=== PATIENT | female | born 1955 | race Caucasian/White ===

== ENCOUNTER 2024-07-22 09:34 | Emergency (ER) | payer MEDICARE, SELFPAY ==
[2024-07-22 09:35] VITALS: BMI 41.5
[2024-07-22 10:38] VITALS: BP 138/86; PULSE 77; RESP 20; TEMP 36.6; O2SAT 93; BMI 41.5
--- NOTE | 2024-07-22 10:51 | EKG_ITS ---
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1955 Requested By: Ilana Montgomery ([facility]) Michael Order Number: [id number] Reading MD: Ilana Montgomery ([facility]) Michael Measurements Intervals [place] Rate: 79 P: 54 [place]: 175 QRS: 47 QRSD: 84 T: 36 QT: 390 QTc: 450 Interpretive Statements SINUS RHYTHM WITH SINUS ARRHYTHMIA LOW QRS VOLTAGE IN PRECORDIAL LEADS [QRS DEFLECTION < 1.0 mV IN CHEST LEADS] MINIMAL ST DEPRESSION [0.025+ mV ST DEPRESSION] Compared to ECG 09/07/2021 07:23:46 Low QRS voltage now present ST (T wave) deviation now present Incomplete right bundle-branch block no longer present T-wave abnormality no longer present Possible ischemia no longer present /store/S0/[id number].pdf
--- NOTE | 2024-07-22 10:51 | XR_ITS ---
Examination: AP chest single view TECHNIQUE: AP portable upright chest single view Exam date and time: July 22, 2024 1132 hours Comparison October 24, 2022 INDICATIONS: Shortness of breath beginning 5 days ago. FINDINGS: No significant cardiac enlargement Moderate vascular congestion Prominent accentuation interstitial markings at the lung bases Prominent osteopenia IMPRESSION: Bibasilar bronchitis versus early bronchopneumonia, clinical correlation advised
--- NOTE | 2024-07-22 10:51 | PD.EDRME ---
Rapid Medical Screening Exam RME Arrival date/time: 07/22/24 09:34 This is a 69-year-old female history of CHF, COPD presents to the emergency department with complaints of chest pain, shortness of breath and BLE. I have greeted and performed a focused initial assessment of this patient. Initial appropriate labs ordered at this time. A comprehensive ED assessment and evaluation of the patient and analysis of all test and completion of medical decision making process will be conducted by additional ED provider. Chief Complaint: Shortness of Breath/Dyspnea Time Seen by Provider: 07/22/24 10:12 Vital signs: Vital Signs Temperature 97.9 F 07/22/24 10:38 Pulse Rate 77 07/22/24 10:38 Respiratory Rate 20 07/22/24 10:38 Blood Pressure 138/86 H 07/22/24 10:38 Pulse Oximetry (%) 93 L 07/22/24 10:38 Oxygen Delivery Method Nasal Cannula 07/22/24 10:38 Oxygen Flow Rate 3 07/22/24 10:38
[2024-07-22 11:33] LABS: Basophils # (Auto) 0.1 Thou/mm3 (0.0-0.2); Basophils % (Auto) 1 % (0-2.5); Eosinophils # (Auto) 0.5 Thou/mm3 (0.0-0.5); Eosinophils % (Auto) 8 % (0-10); Hematocrit 38.7 % (36.0-46.0); Hemoglobin 12.6 g/dL (12.0-16.0); Immature Granulocytes % (Auto) 1 % (0-0); Immature Granulocytes Auto 0.04 Thou/mm3 (0.00-0.00); Lymphocytes # (Auto) 1.3 Thou/mm3 (1.0-4.8); Lymphocytes % (Auto) 20 % (10-50); Mean Corpuscular HGB Conc 32.6 g/dl (31.0-37.0); Mean Corpuscular Hemoglobin 31.5 pg (25.0-35.0); Mean Corpuscular Volume 97 fL (80-100); Monocytes # (Auto) 0.4 Thou/mm3 (0.0-0.8); Monocytes % (Auto) 7 % (0-12); Neutrophils # (Auto) 4.2 Thou/mm3 (1.8-7.7); Neutrophils % (Auto) 64 % (37-80); Nucleated Red Blood Cell % 0 /100 WBC (0); Platelet Count 244 Thou/mm3 (140-440); RDW Standard Deviation 48.3 fL (36.4-46.3); White Blood Count 6.6 Thou/mm3 (3.6-11.0)
[2024-07-22 11:49] LABS: B-Type Natriuretic Peptide 53 pg/mL (0-100); INR 0.9 (0.9-1.3); Partial Thromboplastin Time 21.1 Seconds (22.0-36.0); Prothrombin Time 10.4 Seconds (9.0-12.2)
[2024-07-22 11:50] LABS: Alanine Aminotransferase 17 U/L (10-49); Albumin, Serum 4.3 gm/dL (3.4-4.8); Albumin/Globulin Ratio 1.7 (1.2-2.2); Alkaline Phosphatase 102 U/L (46-116); Anion Gap 7 (7-16); Aspartate Amino Transferase 17 U/L (0-34); BUN/Creatinine Ratio 10 Ratio (12-20); Bilirubin,Total 0.3 mg/dL (0.3-1.2); Blood Urea Nitrogen 8 mg/dL (9-23); Carbon Dioxide 32.2 mMol/L (20.0-31.0); Chloride 98 mMol/L (98-107); Creatinine (Component) 0.8 mg/dL (0.6-1.3); Estimated Creatinine Clearance 70.9 mL/min (>60); Globulin 2.6 gm/dL (2.3-3.5); Glucose 118 mg/dL (74-106); Lipase 41 U/L (12-53); Magnesium 2.2 mg/dL (1.6-2.6); Osmolality,Calculated 273 (275-295); Potassium 4.2 mMol/L (3.4-5.1); Sodium 137 mMol/L (136-145); Total Protein 6.9 gm/dL (5.7-8.2); Troponin I < 0.020 ng/mL (0.0-0.045); eGFR > 60 See Note
[2024-07-22] MEDS: MethylPREDNISolone SOD SUCC 62.5 MG/ML 2ML VIAL 125 MG IVP (12:46)
[2024-07-22] MEDS: ALBUTEROL/IPRATROPIUM (Duoneb) RT SOL 3 ML NEBU INH (12:58)
[2024-07-22 12:59] VITALS: PULSE 78; RESP 20; O2SAT 97
--- NOTE | 2024-07-22 15:36 | PD.EDSOB ---
ED SOB =RME/HPI General Chief Complaint: Shortness of Breath/Dyspnea Stated Complaint: SHORTNESS OF BREATH Time Seen by Provider: 07/22/24 10:12 Arrival date/time: 07/22/24 09:34 RME / HPI RME / HPI Narrative: 69-year-old female patient with significant history of congestive heart failure, COPD, came in for evaluation regarding shortness of breath and chest pain on coughing. Severity of symptoms for several weeks getting worse for the last few days. Denies any fever denies any other complaints patient be using her COPD medications oxygen and breathing treatment with mild relief. Denies any other complaints. Related Data Home Medications ?Medication ?Instructions ?Recorded ?Confirmed furosemide 20 mg tablet 20 mg PO QDAY 09/04/21 09/24/21 levothyroxine 50 mcg tablet 25 mcg PO QDAY 09/04/21 09/24/21 potassium chloride 20 mEq 20 meq PO BID 09/04/21 09/24/21 tablet,extended release tiotropium 2.5 mcg-olodaterol 2.5 2 puff inhalation QDAY 09/24/21 09/24/21 mcg/actuation mist for inhalation (Stiolto Respimat) Previous Rx's ?Medication ?Instructions ?Recorded azithromycin 250 mg tablet 500 mg (2 x 250 mg) PO QDAY #7 tabs 09/27/21 beclomethasone dipropionate 80 2 inh inhalation BID #10.6 grams 09/27/21 mcg/actuation HFA breath activated aerosol (Qvar RediHaler) docusate sodium 100 mg capsule 100 mg PO BID PRN Constipation #30 09/27/21 (DOK) caps pantoprazole 40 mg tablet,delayed 40 mg PO ACBR #30 tabs 09/27/21 release prednisone 20 mg tablet 40 mg PO QDAY #20 tabs 09/27/21 hydralazine 25 mg tablet 50 mg (2 x 25 mg) PO TID #90 tabs 10/01/21 losartan 50 mg tablet 50 mg PO BID #0 tabs 10/01/21 hydrocodone 5 mg-acetaminophen 325 1 tab PO BID PRN pain #10 tabs 08/20/22 mg tablet ondansetron 4 mg disintegrating 4 mg PO Q8H PRN nausea and 08/20/22 tablet vomiting #10 tabs doxycycline hyclate 100 mg capsule 100 mg PO BID #20 caps 09/29/22 prednisone 50 mg tablet 50 mg PO QDAY #7 tabs 09/29/22 levofloxacin 500 mg tablet 500 mg PO Q24H 7 days #7 tabs 07/22/24 prednisone 50 mg tablet 50 mg PO QDAY #7 tabs 07/22/24 Allergies Allergy/AdvReac Type Severity Reaction Status Date / Time iodine Allergy NAUSEA, Verified 07/22/24 09:38 VOMITTING, CHILLS, DIARRHEA, FEVER Review of Systems Review of Systems Narrative Review of Systems: Review of system reviewed and within normal limits except mentioned in HPI ED Exam Narrative Physical exam: VITAL SIGNS: Reviewed. GENERAL APPEARANCE: Alert and interactive, follows commands, no acute distress, HEAD AND FACE: Non-traumatic. ENT: PERRL, pink conjunctivitis, eyelid no trauma, Mucous membrane moist. NECK: Supple, nontender, no nuchal rigidity. CHEST: No tenderness, no crepitus, no paradoxical movement, no retractions. LUNGS: Clear, well ventilated, symmetric, no rales, no wheezing, no ronchi, no stridor, good breath sounds bilaterally. HEART: Regular rate, regular rhythm, no murmur, no gallops. ABDOMEN: Soft, positive bowel sounds, nondistended, no guarding, nontender, no rebound, no masses, RECTAL: Deferred. GENITAL: Deferred. NEUROLOGICAL: Gross motor function intact sensory function intact, Appropriate for age. MUSCULOSKELETAL: low back nontender, full range of motion. EXTREMITIES: Nontender, full range of motion. SKIN: Color pink, dry, no rash, no lacerations, no abrasions, no contusions. LYMPHATICS: Deferred. 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 STAT Care 07/22/24 10:51 Active Continuous Pulse Oximetry ONCE Care 07/22/24 10:51 Active EKG (ED ONLY) *Do not use* NOW Care 07/22/24 10:51 Completed Insert IV STAT Care 07/22/24 10:51 Active EKG (ED Only) Stat Exams 07/22/24 10:51 Draft XR chest 1V portable Stat Exams 07/22/24 10:51 Completed B-Type Natriuretic Peptide Stat Lab 07/22/24 11:18 Completed CBC Stat Lab 07/22/24 11:18 Completed Comprehensive Metabolic Panel Stat Lab 07/22/24 11:18 Completed Lipase Stat Lab 07/22/24 11:18 Completed Magnesium Stat Lab 07/22/24 11:18 Completed Partial Thromboplastin Time Stat Lab 07/22/24 11:18 Completed Prothrombin Time with INR Stat Lab 07/22/24 11:18 Completed Troponin I Stat Lab 07/22/24 11:18 Completed Albuterol/Ipratr Rt Ginger [Duoneb Rt Ginger] Med 07/22/24 10:50 Discontinued 3 ml INH X1 ONE MethylPREDNISolone.* [SoluMEDROL Inj] Med 07/22/24 10:50 Discontinued 125 mg IVP X1 ONE Vital Signs Vital signs: Vital Signs Temperature 97.9 F 07/22/24 10:38 Pulse Rate 77 07/22/24 10:38 Respiratory Rate 20 07/22/24 10:38 Blood Pressure 138/86 H 07/22/24 10:38 Pulse Oximetry (%) 93 L 07/22/24 10:38 Oxygen Delivery Method Nasal Cannula 07/22/24 10:38 Oxygen Flow Rate 3 07/22/24 10:38 Shortness of Breath / Dyspnea MDM Narrative MDM Narrative:: 69-year-old female patient with significant history of congestive heart failure, COPD, came in for evaluation regarding shortness of breath and chest pain on coughing. Severity of symptoms for several weeks getting worse for the last few days. Denies any fever denies any other complaints patient be using her COPD medications oxygen and breathing treatment with mild relief. Denies any other complaints. Laboratory couple came back unremarkable. There is no leukocytosis noted. CMP unremarkable. EKG showed sinus rhythm, ventricular rate of 79 bpm, no ST segment ovation depression noted. Chest x-ray showed bronchitis versus early bronchopneumonia. Results discussed with the family and patient. Patient appears nontoxic and hemodynamically stable. Patient discharged home and instructed to follow-up with primary care provider in 24 to 48 hours. Instructed to return to the emergency department immediately if worsening of symptoms Patient data External records reviewed:: None Clinical information provided by:: patient and family Social determinants that could affect healthcare access:: none Patient has the following chronic illnesses:: COPD congestive heart failure How is presenting disease/condition affected by chronic disease/condition?: exacerbated by Evaluation data The following diagnostics were reviewed and interpreted by me:: lab results, radiology exam(s) and EKG tracing(s) Lab and/or radiology exams considered but not ordered:: None Interpretation Summary: See results in MDM Medications / Prescriptions Medications or Prescriptions considered but not ordered:: None Medication administrations:: Medication Administration History Discontinued Medications Albuterol/Ipratropium (Albuterol/Ipratropium (Duoneb) Rt Ginger 3 Ml Nebu) 3 ml INH X1 ONE Stop: 07/22/24 10:51 Last Admin: 07/22/24 12:58 Dose: 3 ml Documented By: ALBIN Methylprednisolone Sodium Succinate (Methylprednisolone Sod Succ 62.5 Mg/Ml 2ml Vial) 125 mg IVP X1 ONE Stop: 07/22/24 10:51 Last Admin: 07/22/24 12:46 Dose: 125 mg Documented By: JONATHAN Jones, Gingeru-Medrol Consultations Consultation(s) initiated? (list below): No Diagnosis Shortness of Breath Differential Diagnosis: acute exacerbation of chronic obstructive airways disease, congestive heart failure and community acquired pneumonia Most likely diagnosis given after review of the tests above:: Pneumonia, COPD Admission Indicated Admission indicated?: not indicated Admission Request Was there a request for admission?: No Disposition Plan Disposition Plan: Discharge Discharge Attestation Discharge Attestation: The patient and all family members were given an opportunity to ask questions and understood the discharge instructions. Discharge instructions specifically effects, indications for sooner follow up or return to the emergency department, and the expected course of current diagnosis. Patient condition: Stable Discharge Plan Plan Patient Disposition: HOME (Self Care) Disposition Comment: stable Prescriptions/Referrals Prescriptions/Med Rec: New prednisone 50 mg tablet 50 mg PO QDAY Qty: 7 0RF levofloxacin 500 mg tablet 500 mg PO Q24H 7 Days Qty: 7 0RF No Action levothyroxine 50 mcg Tablet 25 mcg PO QDAY furosemide 20 mg Tablet 20 mg PO QDAY potassium chloride 20 mEq Tablet Extended Release 20 meq PO BID Stiolto Respimat 2.5-2.5 mcg/actuation Mist 2 puff INHALATION QDAY azithromycin 250 mg Tablet 500 mg PO QDAY Qty: 7 0RF prednisone 20 mg Tablet 40 mg PO QDAY Qty: 20 0RF Taper: Prednisone Taper 20 mg DAILY for 2 Days and 0 Hour 10 mg DAILY for 2 Days and 0 Hour 5 mg DAILY for 7 Days and 0 Hour pantoprazole 40 mg Tablet,Delayed Release (Dr/Ec) 40 mg PO ACBR Qty: 30 0RF docusate sodium [DOK] 100 mg Capsule 100 mg PO BID PRN (Reason: Constipation) Qty: 30 0RF Qvar RediHaler 80 mcg/actuation HFA aerosol breath activated 2 inh inhalation BID Qty: 10.6 0RF hydralazine 25 mg Tablet 50 mg PO TID Qty: 90 0RF losartan 50 mg Tablet 50 mg PO BID Qty: 0 0RF hydrocodone-acetaminophen 5-325 mg tablet 1 tab PO BID MDD 10mg PRN (Reason: pain) Qty: 10 0RF ondansetron 4 mg tablet,disintegrating 4 mg PO Q8H PRN (Reason: nausea and vomiting) Qty: 10 0RF doxycycline hyclate 100 mg capsule 100 mg PO BID Qty: 20 0RF prednisone 50 mg tablet 50 mg PO QDAY Qty: 7 0RF Referrals: Ethan Castle MD [Primary Care Provider] - In 1 week Problem List Clinical Impression: Community acquired pneumonia, COPD (chronic obstructive pulmonary disease) Patient/Caregiver Discharge Instructions Discharge Activity: activity as tolerated Education Materials: ED Pneumonia (Adult) Additional Instructions: Thank you for the opportunity for serving you today. You are stable for discharged . You are advised to: Follow-up with your PCP in 1 to 2 days Return to ED for worsening of symptoms Print Language: [place] Island[place] Stand Alone Forms: Miranda Award Info., Patient Portal Info Letter
== END 2024-07-22 16:12 | disposition home or self-care (01) ==
PROVIDERS: Nurse Practitioner Primary Care; Emergency Provider Emergency Medicine; PCP Internal Medicine
DX: J18.9 Pneumonia, unspecified organism (principal); J44.0 Chronic obstructive pulmonary disease with (acute) lower respiratory infection; I50.9 Heart failure, unspecified
CPT/HCPCS: 36415; 71045; 80053; 83690; 83735; 83880; 84484; 85025; 85610; 85730; 93005; 94640; 96374; 99284; A9270; J2919

== ENCOUNTER 2024-08-10 11:51 | Inpatient (IN) | payer MEDICARE, MEDICAID, SELFPAY ==
[2024-08-10 12:31] VITALS: BP 140/84; PULSE 80; RESP 20; TEMP 36.5; O2SAT 97; BMI 41.5
--- NOTE | 2024-08-10 12:42 | XR_ITS ---
Examination: PA lateral chest 2 views Technique: Upright PA lateral chest 2 views Exam date and time: August 10, 2024 1307 hours Comparison July 22, 2024 Indications: Shortness of breath beginning 2 weeks ago. Findings: Mild heart failure Mild enlargement cardiac contour Prominent vascular congestion with early edema at the lung bases Increased AP dimension chest with kyphosis dorsal spine Impression: Mild heart failure
--- NOTE | 2024-08-10 12:42 | EKG_ITS ---
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
--- NOTE | 2024-08-10 12:42 | PD.EDRME ---
Rapid Medical Screening Exam RME Arrival date/time: 08/10/24 11:51 69-year-old female with a history of COPD, CHF, hypertension presents to the emergency room with a chief complaint of shortness of breath, bilateral lower extremity swelling x 2 days I have greeted and performed a focused initial assessment of this patient. A comprehensive ED assessment and evaluation of the patient, analysis of all test results, and completion of the medical decision making process will be conducted by additional ED providers. Chief Complaint: General Adult/Misc Complain Time Seen by Provider: 08/10/24 12:29 Vital signs: Vital Signs Temperature 97.7 F 08/10/24 12:31 Pulse Rate 80 08/10/24 12:31 Respiratory Rate 20 08/10/24 12:31 Blood Pressure 140/84 H 08/10/24 12:31 Pulse Oximetry (%) 97 08/10/24 12:31 Oxygen Delivery Method Nasal Cannula 08/10/24 12:31 Oxygen Flow Rate 3 08/10/24 12:31 Vital signs reviewed by provider: Yes
[2024-08-10 13:15] LABS: Basophils # (Auto) 0.1 Thou/mm3 (0.0-0.2); Basophils % (Auto) 1 % (0-2.5); Eosinophils # (Auto) 0.6 Thou/mm3 (0.0-0.5); Eosinophils % (Auto) 9 % (0-10); Hematocrit 39.1 % (36.0-46.0); Hemoglobin 12.3 g/dL (12.0-16.0); Immature Granulocytes % (Auto) 1 % (0-0); Immature Granulocytes Auto 0.03 Thou/mm3 (0.00-0.00); Lymphocytes # (Auto) 1.2 Thou/mm3 (1.0-4.8); Lymphocytes % (Auto) 19 % (10-50); Mean Corpuscular HGB Conc 31.5 g/dl (31.0-37.0); Mean Corpuscular Hemoglobin 31.9 pg (25.0-35.0); Mean Corpuscular Volume 101 fL (80-100); Monocytes # (Auto) 0.4 Thou/mm3 (0.0-0.8); Monocytes % (Auto) 7 % (0-12); Neutrophils # (Auto) 3.9 Thou/mm3 (1.8-7.7); Neutrophils % (Auto) 63 % (37-80); Nucleated Red Blood Cell % 0 /100 WBC (0); Platelet Count 226 Thou/mm3 (140-440); RDW Standard Deviation 49.9 fL (36.4-46.3); Red Blood Count 3.86 Miln/mm3 (4.00-5.20); White Blood Count 6.2 Thou/mm3 (3.6-11.0)
[2024-08-10 13:41] LABS: INR 0.9 (0.9-1.3); Partial Thromboplastin Time 26.2 Seconds (22.0-36.0); Prothrombin Time 10.3 Seconds (9.0-12.2)
[2024-08-10 13:44] LABS: Anion Gap 7 (7-16); BUN/Creatinine Ratio 10 Ratio (12-20); Blood Urea Nitrogen 9 mg/dL (9-23); Carbon Dioxide 32.5 mMol/L (20.0-31.0); Chloride 102 mMol/L (98-107); Creatinine (Component) 0.9 mg/dL (0.6-1.3); Potassium 4.1 mMol/L (3.4-5.1); Sodium 141 mMol/L (136-145)
[2024-08-10 13:45] LABS: Alanine Aminotransferase 17 U/L (10-49); Albumin, Serum 4.2 gm/dL (3.4-4.8); Albumin/Globulin Ratio 1.8 (1.2-2.2); Alkaline Phosphatase 90 U/L (46-116); Aspartate Amino Transferase 17 U/L (0-34); Bilirubin,Total 0.4 mg/dL (0.3-1.2); Calcium 9.3 mg/dL (8.3-10.6); Calcium (Corrected) 9.3 mg/dL (8.5-10.1); Globulin 2.4 gm/dL (2.3-3.5); Glucose 126 mg/dL (74-106); LDH (Lactate Dehydrogenase) 259 U/L (120-246); Osmolality,Calculated 281 (275-295); Total Protein 6.6 gm/dL (5.7-8.2); Troponin I < 0.020 ng/mL (0.0-0.045); eGFR > 60 See Note
[2024-08-10 13:58] LABS: B-Type Natriuretic Peptide 50 pg/mL (0-100)
--- NOTE | 2024-08-10 19:18 | EDNOTE_ITS ---
ED General RME/HPI General Chief complaint: General Adult/Misc Complain Stated complaint: COPD/CHF, CAME HERE W/ PNA X 2 WKS. GETTING WORSE Time Seen by Provider: 08/10/24 12:29 Source: patient Arrival date/time: 08/10/24 11:51 Mode of arrival: ambulatory Limitations: no limitations RME / HPI RME / HPI narrative: Dr. Thomas?s Main ED Evaluation: 69-year-old female with a past medical history of chronic obstructive pulmonary disease (COPD), congestive heart failure (CHF), and hypertension presents to the emergency department with progressive shortness of breath and bilateral lower extremity swelling for the past two days. The patient reports increasing dyspnea at rest and with exertion, which has worsened compared to her baseline. She denies chest pain, fever, or recent illness. She also notes worsening lower extremity edema, which she has not experienced at this severity before. Related Data Home Medications ?Medication ?Instructions ?Recorded ?Confirmed furosemide 20 mg tablet 20 mg PO QDAY 09/04/2109/24 levothyroxine 50 mcg tablet 25 mcg PO QDAY 09/04/21 potassium chloride 20 mEq 20 meq PO BID 09/04/2109/24 tablet,extended release tiotropium 2.5 mcg-olodaterol 2.5 2 puff inhalation QD AY 09/24/21 09/24/21 mcg/actuation mist for inhalation (Stiolto Respimat) Previous Rx's ?Medication ?Instructions ?Recorded azithromycin 250 mg tablet 500 mg (2 x 250 mg) PO QDAY #7 tabs 09/27/21 beclomethasone dipropionate 80 2 inh inhalation BID #1 0.6 grams 09/27/21 mcg/actuation HFA breath activated aerosol (Qvar RediHaler) docusate sodium 100 mg capsule 100 mg PO BID PRN Const ipation #30 09/27/21 (DOK) caps pantoprazole 40 mg tablet,delayed 40 mg PO ACBR #30 ta bs 09/27/21 release prednisone 20 mg tablet 40 mg PO QDAY #20 tabs 09/27 hydralazine 25 mg tablet 50 mg (2 x 25 mg) PO TID #90 tabs 10/01/21 losartan 50 mg tablet 50 mg PO BID #0 tabs 2 hydrocodone 5 mg-acetaminophen 325 1 tab PO BID PRN pa in #10 tabs 08/20/22 mg tablet ondansetron 4 mg disintegrating 4 mg PO Q8H PRN nausea and 08/20/22 tablet vomiting #10 tabs doxycycline hyclate 100 mg capsule 100 mg PO BID #20 c aps 09/29/22 prednisone 50 mg tablet 50 mg PO QDAY #7 tabs prednisone 50 mg tablet 50 mg PO QDAY #7 tabs prednisone 50 mg tablet 50 mg PO QDAY #7 tabs Allergies Allergy/AdvReac Type Severity Reaction Status Date / Time iodine Allergy NAUSEA, Verified 08/10/24 11:57 VOMITTING, CHILLS, DIARRHEA, FEVER Review of Systems Review of Systems Systems Reviewed: All systems reviewed, normal except as documented Past Medical History Past Medical History NEUROLOGIC: Negative Neurological Disorders or Amyotrophic Lateral Sclerosis (ALS/Arleen Gehrig's) CARDIAC: Positive Cardiac Disorders, Atrial Fibrillation, Congestive Heart Failure, Edema and Hypertension RESPIRATORY: Positive Chronic Obstructive Pulmonary Disease (COPD), Asthma and Pneumonia GASTROINTESTINAL: Negative Gastrointestinal Disorders GENITOURINARY: Negative Genitourinary Disorders or Renal Disease MUSCULOSKELETAL: Positive Musculoskeletal Disorders, Arthritis and Gout ENDOCRINE: Positive Endocrine Disorders and Hypothyroidism; Negative Diabetes Mellitus Type 1, Diabetes Mellitus Type 2, Hypoglycemia or Hyperthyroidism HEMATOLOGIC: Negative Blood Disorders or Sickle Cell Disease OTHER HISTORY: Positive Chicken Pox, Measles and Mumps; Negative Autoimmune Disease, Anesthesia Reactions or Cancer Surgical History SURGICAL: Positive Tonsillectomy, Abdominal Surgery and Section Social History SMOKING STATUS: Former smoker ED Exam Narrative Physical exam: GENERAL: In general the patient is awake, interactive, in an emergency department [place]. HEAD/EYES/EARS/NOSE/THROAT: normo-cephalic, atraumatic, mucus membranes are moist. No cervical tenderness palpation midline. Supple neck. CARDIOVASCULAR: regular rate and regular rhythm, no murmurs, heart sounds are not distant, strong pulses in all four extremities that are equal and symmetric bilateral upper and lower extremities, normal capillary refill. CHEST/PULMONARY: normal chest rise and fall, good air movement, clear to auscultation bilaterally, normal inspiratory to expiratory ratios without evidence of respiratory distress. ABDOMEN: soft, not tender, no masses appreciated BACK: normal range of motion without pain. NEUROLOGICAL: cranio-facial features are symmetric, moves all four extremities equally without obvious limitations or weakness. EXTREMITY: no tenderness to palpation over the long bones or large joints of the bilateral upper and lower extremities, no joint swelling, no joint erythema, no signs of trauma, no unilateral leg swelling and no peripheral edema. SKIN: warm, dry, well-perfused, no jaundice, no rash, no telangiectasias or petechia. PSYCH: calm, cooperative, no evidence of psychosis or agitation General Limitations: Present no limitations Course Course Course Narrative: CXR is ordered for determining etiology of shortness of breath. Informed by the nurse the patient does not want to go home. Patient will need case management social worker consultation in the morning. Quality Measures none Orders Category Date Time Status Admit to Inpatient Status Routine Admission 08/11/24 17:48 Active Patient Condition Routine Admission 08/11/24 17:48 Ordered Bedside COVID-19 Antigen Test NOW Care 08/11/24 17:24 Active Bedside Influenza A&B Antigen Test NOW Care 08/11/24 17:24 Completed COVID-19 Screening Questionnaire NOW Care 08/11/24 15:[address] Screening NOW Care 08/11/24 06:42 Active Decision to Admit X1 Care 08/11/24 15:07 Completed EKG (ED ONLY) *Do not use* NOW Care 08/10/24 12:42 Completed Miscellaneous Nursing Order NOW Care 08/11/24 17:58 Active Notify provider NEEDED Care 08/11/24 17:48 Active Diet Low Sodium (2gm) Diet 08/11/24 Dinner Active CA echo doppler complete Routine Exams 08/11/24 17:[address] angio chest Stat Exams 08/11/24 06:42 Completed EKG (ED Only) Stat Exams 08/10/24 12:42 Draft XR chest 2V Stat Exams 08/10/24 12:42 Completed B-Type Natriuretic Peptide Stat Lab 08/10/24 12:55 Completed CBC AM DRAW Lab 08/12/24 05:00 Ordered CBC AM DRAW Lab 08/13/24 05:00 Ordered CBC AM DRAW Lab 08/14/24 05:00 Ordered CBC Stat Lab 08/10/24 12:55 Completed Comprehensive Metabolic Panel AM DRAW Lab 08/12/24 05:00 Ordered Comprehensive Metabolic Panel Stat Lab 08/10/24 12:55 Completed Drug Screen,Urine Stat Lab 08/10/24 22:30 Completed LDH (Lactate Dehydrogenase) Stat Lab 08/10/24 12:55 Completed Lipid Panel AM DRAW Lab 08/12/24 05:00 Ordered Magnesium AM DRAW Lab 08/12/24 05:00 Ordered Magnesium Stat Lab 08/10/24 12:55 Completed Partial Thromboplastin Time Stat Lab 08/10/24 12:55 Completed Prothrombin Time with INR Stat Lab 08/10/24 12:55 Completed Thyroid Stimulating Hormone AM DRAW Lab 08/12/24 05:00 Ordered Troponin I Stat Lab 08/10/24 12:55 Completed Urinalysis Stat Lab 08/10/24 22:30 Completed Acetaminophen Tab [Tylenol Tab] Med 08/11/24 17:48 Active 650 mg PO Q6H PRN Albuterol/Ipratr Rt Ginger [Duoneb Rt Ginger] Med 08/11/24 00:55 Discontinued 3 ml .ROUTE .STK-MED ONE Albuterol/Ipratr Rt Ginger [Duoneb Rt Ginger] Med 08/11/24 19:00 Active 3 ml INH BIDRT Albuterol/Ipratr Rt Ginger [Duoneb Rt Ginger] Med 08/11/24 17:48 Active 3 ml INH Q8HRRT PRN Albuterol/Ipratr Rt Ginger [Duoneb Rt Ginger] Med 08/10/24 20:39 Discontinued 3 ml INH X1 ONE Albuterol/Ipratr Rt Ginger [Duoneb Rt Ginger] Med 08/11/24 00:54 Discontinued 3 ml INH X1 ONE Albuterol/Ipratr Rt Ginger [Duoneb Rt Ginger] Med 08/11/24 11:18 Discontinued 3 ml INH X1 ONE Albuterol/Ipratr Rt Ginger [Duoneb Rt Ginger] Med 08/11/24 14:27 Discontinued 3 ml INH X1 ONE Azithromycin Po [Zithromax PO] Med 08/11/24 18:00 Active 500 mg PO QDAY Bumetanide Inj [Bumex Inj] Med 08/11/24 18:00 Active 1 mg IVP QDAY Bumetanide Inj [Bumex Inj] Med 08/10/24 20:39 Discontinued 1 mg IVP X1 ONE DiphenhydrAMINE INJ [Benadryl Inj] Med 08/11/24 06:41 Discontinued 25 mg IVP X1 ONE Enoxaparin [Lovenox] Med 08/12/24 09:00 Active 40 mg SC QDAY Famotidine Inj [Pepcid Inj] Med 08/11/24 06:41 Discontinued 20 mg IVP X1 ONE Furosemide [Lasix] Med 08/10/24 19:17 Discontinued 40 mg PO X1 ONE Losartan [Cozaar] Med 08/11/24 21:00 Active 50 mg PO BID Magnesium Sulfate 1 gm Ivpb [Magnesium Sulfate Ivpb] Med 08/11/24 01:00 Discontinued 1 gm in 100 ml IV X1 MethylPREDNISolone.* [SoluMEDROL Inj] Med 08/11/24 00:54 Discontinued 125 mg IVP X1 ONE Milk Of Magnesia Susp [Mom Susp] Med 08/11/24 17:48 Active 30 ml PO QDAY PRN Ondansetron Inj [Zofran Inj] Med 08/11/24 17:48 Active 4 mg IV Q6H PRN Ondansetron Inj [Zofran Inj] Med 08/11/24 06:46 Discontinued 4 mg IV X1 ONE Pantoprazole [Protonix] Med 08/12/24 09:00 Active 40 mg PO QDAY hydrALAZINE INJ [Apresoline Inj] Med 08/11/24 00:10 Discontinued 20 mg IV X1 ONE predniSONE Med 08/12/24 09:00 Active 40 mg PO QDAY Code Status Routine Oth 08/11/24 17:48 Ordered Oxygen Delivery PRN RT 08/11/24 13:38 Active Reevaluation(s) Reevaluation #1: BP is 185/104 with a HR of 93. Hydralazine 20mg given by the nurse. Patient states she is starting to feel short of breath again. 2nd duoneb ordered. Time: 00:42 Reevaluation #2: Patient states she feels significantly better and has been urinating throughout the night. Patient is stable to be discharged home when her son is able to pick her up. Time: 03:14 Vital Signs Vital signs: Vital Signs Temperature 97.7 F 08/10/24 12:31 Pulse Rate 80 08/10/24 12:31 Respiratory Rate 20 08/10/24 12:31 Blood Pressure 140/84 H 08/10/24 12:31 Pulse Oximetry (%) 97 08/10/24 12:31 Oxygen Delivery Method Nasal Cannula 08/10/24 12:31 Oxygen Flow Rate 3 08/10/24 12:31 [facility] Patient data External records reviewed:: [facility] previous records Clinical information provided by:: patient Social determinants that could affect healthcare access:: none Patient has the following chronic illnesses:: see PMH How is presenting disease/condition affected by chronic disease/condition?: u neffected by Evaluation data The following diagnostics were reviewed and interpreted by me:: lab results and radiology exam(s) Lab and/or radiology exams considered but not ordered:: na Interpretation Summary: Examination: PA lateral chest 2 views Technique: Upright PA lateral chest 2 views Exam date and time: August 10, 2024 1307 hours Comparison July 22, 2024 Indications: Shortness of breath beginning 2 weeks ago. Findings: Mild heart failure Mild enlargement cardiac contour Prominent vascular congestion with early edema at the lung bases Increased AP dimension chest with kyphosis dorsal spine Impression: Mild heart failure Dictated By: Evans Rainey MD Medications Medications considered but not ordered:: na Medication administrations:: Medication Administration History Acetaminophen (Acetaminophen 325 Mg Tablet) 650 mg PO Q6H PRN PRN Reason: Fever >101.5 Stop: 09/10/24 17:47 Albuterol/Ipratropium (Albuterol/Ipratropium (Duoneb) Rt Ginger 3 Ml Nebu) 3 ml INH BIDRT [facility] Stop: 09/10/24 18:59 Last Admin: 08/11/24 19:55 Dose: 3 ml Documented By: KIRTI Albuterol/Ipratropium (Albuterol/Ipratropium (Duoneb) Rt Ginger 3 Ml Nebu) 3 ml INH Q8HRRT PRN PRN Reason: sob or wheeze Stop: 09/10/24 22:59 Azithromycin (Azithromycin 250 Mg Tablet) 500 mg PO QDAY [facility] Stop: 08/18/24 17:59 Last Admin: 08/11/24 18:22 Dose: 500 mg Documented By: JADON Bumetanide (Bumetanide Inj 0.25 Mg/Ml Vial 4 Ml) 1 mg IVP QDAY [facility] Stop: 09/10/24 17:59 Last Admin: 08/11/24 18:23 Dose: 1 mg Documented By: JADON Enoxaparin Sodium (Enoxaparin Sod Inj 40 Mg/0.4 Ml Syringe) 40 mg SC QDAY [facility] Stop: 08/26/24 08:59 Losartan Potassium (Losartan Potassium 25 Mg Tablet) 50 mg PO BID [facility] Stop: 09/10/24 20:59 Magnesium Hydroxide (Milk Of Magnesia Susp 30 Ml Udc) 30 ml PO QDAY PRN; Protocol PRN Reason: CONSTIPATION Stop: 09/10/24 17:47 Ondansetron HCl (Ondansetron Inj 2 Mg/Ml Inj 2 Ml) 4 mg IV Q6H PRN; Protocol PRN Reason: NAUSEA OR VOMITING Stop: 09/10/24 17:47 Pantoprazole Sodium (Pantoprazole 40 Mg Tablet) 40 mg PO QDAY [facility] Stop: 09/11/24 08:59 Prednisone (Prednisone 20 Mg Tablet) 40 mg PO QDAY [facility] Stop: 08/15/24 08:59 Discontinued Medications Albuterol/Ipratropium (Albuterol/Ipratropium (Duoneb) Rt Ginger 3 Ml Nebu) 3 ml INH X1 ONE Stop: 08/10/24 20:40 Last Admin: 08/10/24 21:28 Dose: 3 ml Documented By: KATIUSKA Albuterol/Ipratropium (Albuterol/Ipratropium (Duoneb) Rt Ginger 3 Ml Nebu) 3 ml INH X1 ONE Stop: 08/11/24 00:55 Last Admin: 08/11/24 01:04 Dose: 3 ml Documented By: KATIUSKA Albuterol/Ipratropium (Albuterol/Ipratropium (Duoneb) Rt Ginger 3 Ml Nebu) Confirm Administered Dose 3 ml .ROUTE .STK-MED ONE Stop: 08/11/24 00:56 Last Admin: 08/11/24 01:07 Dose: Not Given Documented By: KATIUSKA Non-Admin Reason: Override Medication Albuterol/Ipratropium (Albuterol/Ipratropium (Duoneb) Rt Ginger 3 Ml Nebu) 3 ml INH X1 ONE Stop: 08/11/24 11:19 Last Admin: 08/11/24 11:26 Dose: 3 ml Documented By: GUILLERMO Albuterol/Ipratropium (Albuterol/Ipratropium (Duoneb) Rt Ginger 3 Ml Nebu) 3 ml INH X1 ONE Stop: 08/11/24 14:28 Last Admin: 08/11/24 14:32 Dose: 3 ml Documented By: MR Bumetanide (Bumetanide Inj 0.25 Mg/Ml Vial 4 Ml) 1 mg IVP X1 ONE Stop: 08/10/24 20:40 Last Admin: 08/10/24 21:34 Dose: 1 mg Documented By: SAMIR Diphenhydramine HCl (Diphenhydramine Inj 50 Mg/Ml Vial) 25 mg IVP X1 ONE Stop: 08/11/24 06:42 Last Admin: 08/11/24 10:10 Dose: 25 mg Documented By: JADON Famotidine (Famotidine Inj 10 Mg/Ml Vial 2 Ml) 20 mg IVP X1 ONE Stop: 08/11/24 06:42 Last Admin: 08/11/24 10:11 Dose: 20 mg Documented By: JADON Furosemide (Furosemide 40 Mg Tablet) 40 mg PO X1 ONE Stop: 08/10/24 19:18 Last Admin: 08/10/24 21:20 Dose: Not Given Documented By: DAVIS Non-Admin Reason: Discontinued Hydralazine HCl (Hydralazine Inj 20 Mg/Ml Vial) 20 mg IV X1 ONE Stop: 08/11/24 00:11 Last Admin: 08/11/24 00:42 Dose: 20 mg Documented By: SAMIR Magnesium Sulfate/Dextrose (Magnesium Sulfate Ivpb) 1 gm in 100 mls @ 100 mls/hr IV X1 ONE Stop: 08/11/24 01:59 Last Infusion: 08/11/24 02:59 Dose: Infused Documented By: Admin: 08/11/24 01:16 Dose: 100 mls/hr Documented By: SAMIR Methylprednisolone Sodium Succinate (Methylprednisolone Sod Succ 62.5 Mg/Ml 2ml Vial) 125 mg IVP X1 ONE Stop: 08/11/24 00:55 Last Admin: 08/11/24 01:16 Dose: 125 mg Documented By: SAMIR Ondansetron HCl (Ondansetron Inj 2 Mg/Ml Inj 2 Ml) 4 mg IV X1 ONE; Protocol Stop: 08/11/24 06:47 Last Admin: 08/11/24 11:35 Dose: 4 mg Documented By: JADON as above, if any Consultations Consultation(s) initiated? (list below): No Diagnosis Differential Diagnosis ED Complaint MDM: Dehydration, Pneumonia, UTI, Electrolyte imbalance Most likely diagnosis given after review of the tests above:: see clinical impression below Admission Indicated Admission indicated?: not indicated Explain why admission is indicated or not indicated:: No criteria for admission. Admission Request Was there a request for admission?: No Disposition Plan Disposition Plan: other (specify) (Signed out to Dr. Rivera at [phone] pending case management social worker consultation.) Medical Decision Making MDM Narrative MDM Narrative: 0059: I requested the respiratory therapist to administer the second duoneb and to not wait for the pharmacy to verify it, as the patient needs is FELECIA. 0105: The nurse is calling pharmacy to review and approve the second duoneb. Differential Diagnosis Differential Diagnosis: Dehydration, Pneumonia, UTI, Electrolyte imbalance Lab Data 08/10/24 12:55 08/10/24 12:55 Labs: Lab Results 08/10/24 08/10/24 Range/Units 12:55 22:30 WBC 6.2 (3.6-11.0) Thou/mm3 RBC 3.86 L (4.00-5.20) Miln/mm3 Hgb 12.3 (12.0-16.0) g/dL Hct 39.1 (36.0-46.0) % MCV 101 H (80-100) fL MCH 31.9 (25.0-35.0) pg MCHC 31.5 (31.0-37.0) g/dl RDW Std Deviation 49.9 H (36.4-46.3) fL Plt Count 226 (140-440) Thou/mm3 Neut % (Auto) 63 (37-80) % Lymph % (Auto) 19 (10-50) % Mccormick % (Auto) 7 (0-12) % Eos % (Auto) 9 (0-10) % Baso % (Auto) 1 (0-2.5) % Neut # (Auto) 3.9 (1.8-7.7) Thou/mm3 Lymph # (Auto) 1.2 (1.0-4.8) Thou/mm3 Mccormick # (Auto) 0.4 (0.0-0.8) Thou/mm3 Eos # (Auto) 0.6 H (0.0-0.5) Thou/mm3 Baso # (Auto) 0.1 (0.0-0.2) Thou/mm3 Immature Gran # (Auto) 0.03 H (0.00-0.00) Thou/mm3 Absolute Nucleated RBC 0.00 (0.00-0.00) Thou/mm3 Immature Gran % 1 H (0-0) % Nucleated RBC % 0 (0) /100 WBC PT 10.3 (9.0-12.2) Seconds INR 0.9 (0.9-1.3) APTT 26.2 (22.0-36.0) Seconds Sodium 141 (136-145) mMol/L Potassium 4.1 (3.4-5.1) mMol/L Chloride 102 (98-107) mMol/L Carbon Dioxide 32.5 H (20.0-31.0) mMol/L Anion Gap 7 (7-16) BUN 9 (9-23) mg/dL Creatinine 0.9 (0.6-1.3) mg/dL Estim Creat Clear Calc 63.0 (>60) mL/min eGFR > 60 (60 - ) See Note BUN/Creatinine Ratio 10 L (12-20) Ratio Glucose 126 H (74-106) mg/dL Calculated Osmolality 281 (275-295) Calcium 9.3 (8.3-10.6) mg/dL Corrected Calcium 9.3 (8.5-10.1) mg/dL Magnesium 2.0 (1.6-2.6) mg/dL Total Bilirubin 0.4 (0.3-1.2) mg/dL AST 17 (0-34) U/L ALT 17 (10-49) U/L Alkaline Phosphatase 90 (46-116) U/L Lactate Dehydrogenase 259 H (120-246) U/L Troponin I < 0.020 (0.0-0.045) ng/mL B-Natriuretic Peptide 50 (0-100) pg/mL Total Protein 6.6 (5.7-8.2) gm/dL Albumin 4.2 (3.4-4.8) gm/dL Globulin 2.4 (2.3-3.5) gm/dL Albumin/Globulin Ratio 1.8 (1.2-2.2) Ur Collection Type Clean Catch Urine Color Lt-Yellow (Lt Yel-Yel) Urine Clarity Clear (Clear/Hazy) Urine pH 6.5 (5.0-7.0) Ur Specific Lipan 1.009 (1.001-1.035) Urine Protein Negative (Neg - Trace) Urine Glucose (UA) Negative (Negative) Urine Ketones Negative (Negative) Urine Blood Negative (Negative) Urine Nitrite Negative (Negative) Urine Bilirubin Negative (Negative) Urine Urobilinogen (Auto) Negative (0.0-1.0) mg/dL Ur Leukocyte Esterase Negative (Negative) Urine RBC 1 (0-3) /hpf Urine WBC < 1 (0-5) /hpf Ur Squamous Epith Cells 2 (0-5) /hpf Urine Bacteria None (None) Urine Opiates Screen Negative (Negative) Urine Fentanyl Screen Negative (Negative) Ur Barbiturates Screen Negative (Negative) U Amphetamin/Meth Scrn Negative (Negative) U Benzodiazepines Scrn Negative (Negative) U Cocaine Metab Screen Negative (Negative) U Marijuana (THC) Screen Negative (Negative) Discharge Plan Plan Patient Disposition: Admit Acute Care w/in Hospital Patient condition on transfer: Stable Prescriptions/Referrals Prescriptions/Med Rec: New prednisone 50 mg tablet 50 mg PO QDAY Qty: 7 0RF No Action levothyroxine 50 mcg Tablet 25 mcg PO QDAY furosemide 20 mg Tablet 20 mg PO QDAY potassium chloride 20 mEq Tablet Extended Release 20 meq PO BID Stiolto Respimat 2.5-2.5 mcg/actuation Mist 2 puff INHALATION QDAY azithromycin 250 mg Tablet 500 mg PO QDAY Qty: 7 0RF prednisone 20 mg Tablet 40 mg PO QDAY Qty: 20 0RF Taper: Prednisone Taper 20 mg DAILY for 2 Days and 0 Hour 10 mg DAILY for 2 Days and 0 Hour 5 mg DAILY for 7 Days and 0 Hour pantoprazole 40 mg Tablet,Delayed Release (Dr/Ec) 40 mg PO ACBR Qty: 30 0RF docusate sodium [DOK] 100 mg Capsule 100 mg PO BID PRN (Reason: Constipation) Qty: 30 0RF Qvar RediHaler 80 mcg/actuation HFA aerosol breath activated 2 inh inhalation BID Qty: 10.6 0RF hydralazine 25 mg Tablet 50 mg PO TID Qty: 90 0RF losartan 50 mg Tablet 50 mg PO BID Qty: 0 0RF hydrocodone-acetaminophen 5-325 mg tablet 1 tab PO BID MDD 10mg PRN (Reason: pain) Qty: 10 0RF ondansetron 4 mg tablet,disintegrating 4 mg PO Q8H PRN (Reason: nausea and vomiting) Qty: 10 0RF doxycycline hyclate 100 mg capsule 100 mg PO BID Qty: 20 0RF prednisone 50 mg tablet 50 mg PO QDAY Qty: 7 0RF prednisone 50 mg tablet 50 mg PO QDAY Qty: 7 0RF Referrals: Ethan Castle MD [Primary Care Provider] - In 1 week Problem List Clinical Impression: COPD (chronic obstructive pulmonary disease), Pedal edema Patient/Caregiver Discharge Instructions Education Materials: COPD Meds, CHF Ch Additional Instructions: Please continue your CHF medications as per your primary care physician. Please take the prednisone as directed. Continue your inhalers that you have at home. Return to emergency department for worsening symptoms or any other concerns Print Language: Faroese Stand Alone Forms: Miranda Award Info., Patient Portal Info Letter
[2024-08-10 20:30] VITALS: BP 215/96; PULSE 93; RESP 22; TEMP 36.9; O2SAT 98
[2024-08-10] MEDS: ALBUTEROL/IPRATROPIUM (Duoneb) RT SOL 3 ML NEBU INH (21:28)
[2024-08-10 21:29] VITALS: PULSE 80; RESP 18; O2SAT 100
[2024-08-10 21:34] VITALS: BP 201/111; PULSE 81
[2024-08-10] MEDS: BUMETANIDE INJ 0.25 MG/ML VIAL 4 ML 1 MG IVP (21:34)
[2024-08-10 22:35] LABS: Collection Type, Urine Clean Catch
[2024-08-10 22:42] VITALS: BP 183/99; PULSE 82; RESP 18; TEMP 36.4; O2SAT 96
[2024-08-10 22:46] LABS: Bilirubin,Urine Negative (Negative); Blood,Urine Negative (Negative); Clarity,Urine Clear (Clear/Hazy); Color,Urine Lt-Yellow (Lt Yel-Yel); Glucose, Urine Negative (Negative); Ketones,Urine Negative (Negative); Leukocyte Esterase,Urine Negative (Negative); Nitrite,Urine Negative (Negative); PH,Urine 6.5 (5.0-7.0); Protein,Urine Negative (Neg - Trace); RBC,Urine 1 /hpf (0-3); Specific Gravity,Urine 1.009 (1.001-1.035); Squamous Epithelial Cell,Urine 2 /hpf (0-5); Urobilinogen,Urine Negative mg/dL (0.0-1.0); WBC,Urine < 1 /hpf (0-5)
[2024-08-10 23:58] LABS: Amphetamine/Methamp Scrn,U Negative (Negative); Barbiturate Screen,Urine Negative (Negative); Benzodiazepines Screen,Urine Negative (Negative); Benzoylecgonine Screen, Ur Negative (Negative); Fentanyl Screen,Urine Negative (Negative); Opiate Screen,Urine Negative (Negative); THC Screen,Urine Negative (Negative)
[2024-08-11] VITALS (16 sets, daily range): BP systolic 135–185; BP diastolic 69–114; PULSE 90–100; RESP 16–24; TEMP 36.6–36.9; O2SAT 91–97; BMI 41.8
[2024-08-11] MEDS: hydrALAZINE INJ 20 MG/ML VIAL IV (00:42)
[2024-08-11] MEDS: ALBUTEROL/IPRATROPIUM (Duoneb) RT SOL 3 ML NEBU INH ×4 (01:04→19:55)
[2024-08-11] MEDS: Magnesium Sulfate 1 gm Ivpb 1 GM/100 ML BAG IV (01:16)
[2024-08-11] MEDS: MethylPREDNISolone SOD SUCC 62.5 MG/ML 2ML VIAL 125 MG IVP (01:16)
--- NOTE | 2024-08-11 06:42 | XR_ITS ---
EXAMINATION: CT angio chest ORDERING PROVIDER: Sylvia Rivera MD HISTORY: Shortness of breath, nausea, vomiting, diarrhea. TECHNIQUE: Volumetric, helical CT was used to obtain a CT angiogram of the chest with intravenous contrast using pulmonary embolism protocol. Additional 2-D, 3-D, and MIPS reconstructions are created on a separate workstation and submitted for interpretation. Institutional dose reducing protocols were utilized. Imaging was obtained after the uneventful intravenous administration of 100 cc Isovue 370. Patient premedicated with Benadryl. RADIATION DOSE: DLP 421 mGy-cm COMPARISON: 08/10/2024, chest radiographs. FINDINGS: PULMONARY VASCULATURE: Pulmonary artery trunk measures 3.2 cm. No pulmonary embolism. AORTA AND GREAT VESSELS: Bovine arch. Mild calcifications aortic arch and branching great vessels. Moderate calcifications celiac axis. Replaced right hepatic artery off the superior mesenteric artery. LUNG: Diffuse emphysematous changes. Scattered pneumatoceles and blebs. Scarring and atelectasis primarily in the dependent in the right lower lobe and lingula. 3 mm left apical calcified granuloma. PLEURAL SPACE: No pleural effusion or pneumothorax. HEART: Mild cardiomegaly. MEDIASTINUM: No mass or lymphadenopathy AIRWAYS: Saber sheath trachea. Bronchiectasis, most pronounced in the lower lobes. OTHER: No significant. CHEST WALL: Normal. UPPER ABDOMEN: Cirrhotic liver. Bilateral moderate renal cortical atrophy. Fatty atrophy of the pancreas. BONES: Small multilevel osteophytes and syndesmophytes. Accentuated kyphotic curvature. Mild multilevel degenerative disc disease. IMPRESSION: 1. No CT evidence for pulmonary embolism. 2. Findings which can be seen with pulmonary hypertension. 3. Findings suggestive of chronic obstructive pulmonary hypertension. 4. Cirrhotic liver.
--- NOTE | 2024-08-11 08:00 | EDNOTE_ITS ---
Emergency Room Addendum Addendum Narrative: 0600: Care assumed, patient was already discharged by the previous provider for COPD and pedal edema. The patient does not want to leave, will order a chest CTA and re-evaluate. Past medical, surgical, social and family history reviewed. Vitals and home medications reviewed. Please refer to the emergency department record for history and examination from initial visit.? 1430: Re-assessment at the time of disposition demonstrates that the patient is still short of breath and states, I do not feel comfortable going home . She states after the breathing treatment she feels slightly better but still too short of breath to go home. Will order another breathing treatment and re- evaluate. 1507: Discussed test HPI, PMHx, lab, radiology results and/or management with Dr. Castle. Will admit for further evaluation and management. Accepts patient for admission. Diagnoses: COPD, Pedal edema RADIOLOGY Procedure(s): CT angio chest Accession Number(s): [id number] cc: Ranjan Almeida MD; Sylvia Rivera MD; Ethan Castle MD~ EXAMINATION: CT angio chest ORDERING PROVIDER: Sylvia Rivera MD HISTORY: Shortness of breath, nausea, vomiting, diarrhea. TECHNIQUE: Volumetric, helical CT was used to obtain a CT angiogram of the chest with intravenous contrast using pulmonary embolism protocol. Additional 2-D, 3-D, and MIPS reconstructions are created on a separate workstation and submitted for interpretation. Institutional dose reducing protocols were utilized. Imaging was obtained after the uneventful intravenous administration of 100 cc Isovue 370. Patient premedicated with Benadryl. RADIATION DOSE: DLP 421 mGy-cm COMPARISON: 08/10/2024, chest radiographs. FINDINGS: PULMONARY VASCULATURE: Pulmonary artery trunk measures 3.2 cm. No pulmonary embolism. AORTA AND GREAT VESSELS: Bovine arch. Mild calcifications aortic arch and branching great vessels. Moderate calcifications celiac axis. Replaced right hepatic artery off the superior mesenteric artery. LUNG: Diffuse emphysematous changes. Scattered pneumatoceles and blebs. Scarring and atelectasis primarily in the dependent in the right lower lobe and lingula. 3 mm left apical calcified granuloma. PLEURAL SPACE: No pleural effusion or pneumothorax. HEART: Mild cardiomegaly. MEDIASTINUM: No mass or lymphadenopathy AIRWAYS: Saber sheath trachea. Bronchiectasis, most pronounced in the lower lobes. OTHER: No significant. CHEST WALL: Normal. UPPER ABDOMEN: Cirrhotic liver. Bilateral moderate renal cortical atrophy. Fatty atrophy of the pancreas. BONES: Small multilevel osteophytes and syndesmophytes. Accentuated kyphotic curvature. Mild multilevel degenerative disc disease. IMPRESSION: 1. No CT evidence for pulmonary embolism. 2. Findings which can be seen with pulmonary hypertension. 3. Findings suggestive of chronic obstructive pulmonary hypertension. 4. Cirrhotic liver. Dictated By: Ranjan Almeida MD
[2024-08-11] MEDS: DiphenhydrAMINE INJ 50 MG/ML VIAL 25 MG IVP (10:10)
[2024-08-11] MEDS: FAMOTIDINE INJ 10 MG/ML VIAL 2 ML 20 MG IVP (10:11)
--- NOTE | 2024-08-11 10:17 | PC.NURSE ---
Patient to CT via wheelchair with lucy Luque.
[2024-08-11] MEDS: ONDANSETRON INJ 2 MG/ML INJ 2 ML 4 MG IV (11:35)
--- NOTE | 2024-08-11 17:17 | PD.RESHP ---
Documentation for date of: 08/11/24 [facility] History of Present Illness Chief complaint: Shortness of breath History of present illness: A 69-year-old female with significant past medical history of obesity, hypertension, hypothyroidism CAD, COPD on 2 to 3 L oxygen since 5 years, CHF presented to the hospital with chief complaints of shortness of breath since 3 days. Patient was apparently normal 3 weeks ago, had similar complaints and came to ED on 07/22/2024 and was discharged to home with steroids and antibiotics. Patient felt normal during the treatment with steroids and antibiotics but later again she started developing shortness of breath. At baseline, patient is able to do her routine daily activities and ambulate around the house. But since last 3 days worsening shortness of breath and increased her oxygen supply to 4 L. Also complaining of worsening cough associated with mild sputum. Denies fever, nausea, vomitings, abdominal distention, burning micturition. Noticed bilateral pedal edema and patient endorsed that she is on Bumex 1 Mg but still having swelling both lower extremities since 3 months. ED Course: -Initial vitals were Blood pressure 140/84 mmHg, pulse rate 80 bpm, respiratory rate 20/min, temperature 97.7 ?F, SpO2 97% with 3 L oxygen -Labs significant for WBC 6.2, Hb 12.1, platelets 226, sodium 141, potassium 4.1, chloride 102, bicarb 32.5, BUN 9, creatinine 0.9, glucose 126 -Chest x-ray showed bilateral moderate vascular congestion. Chest CTA is negative for pulmonary embolism. EKG showed normal sinus rhythm -In the ED, patient was given DuoNeb inhalation, Bumex, hydralazine, steroids -Patient was admitted for Acute on chronic hypoxic respiratory failure secondary to COPD exacerbation Past medical history: Hypertension, COPD, CHF, hypothyroidism, CAD Past surgical history: 3 sections, exploratory laparotomy for ectopic , tonsillectomy Social history: Quit smoking 5 years back, 25 pack years, drinks 3-4 beers/week, denies current marijuana or methamphetamine abuse Allergies: NKDA Review of Systems Review of Systems Narrative Review of Systems: Constitutional: No Weight Change, No Fever, No Chills, No Night Sweats, Fatigue, Malaise ENT/Mouth: No Hearing Changes, No Ear Pain, No Nasal Congestion, No Sinus Pain, No Hoarseness, No sore throat, No Rhinorrhea, No Swallowing Difficulty Eyes: No Eye Pain, No Swelling, No Redness, No Foreign Body, No Discharge, No Vision Changes Cardiovascular: No Chest Pain, SOB, No PND, Dyspnea on Exertion, No Orthopnea, Edema, No Palpitations Respiratory: Cough, Sputum, Wheezing, Dyspnea Gastrointestinal: No Nausea, No Vomiting, No Diarrhea, No Constipation, No Pain, No Heartburn, No Anorexia, No Dysphagia, No Hematochezia, No Melena, No Flatulence, No Jaundice Genitourinary: No Dysuria, No Urinary Frequency, No Hematuria, No Urinary Incontinence, No Urgency, No Flank Pain, No Urinary Flow Changes, No Hesitancy Musculoskeletal: No Arthralgias, No Myalgias, No Joint Swelling, No Joint Stiffness, No Back Pain, No Neck Pain, No Injury History Skin: No Skin Lesions, No Pruritis Neuro: No Weakness, No Numbness, No Paresthesias, No Loss of Consciousness, No Syncope, No Dizziness, No Headache, No Coordination Changes, No Recent Falls Past Medical History Past Medical History CARDIAC: Positive Congestive Heart Failure, Edema and Hypertension RESPIRATORY: Positive Chronic Obstructive Pulmonary Disease (COPD), Cough, Sputum Production, Wheezing and Smoking Surgical History SURGICAL: Positive Abdominal Surgery and Section Exam Vital Signs Temp Pulse Resp BP Pulse Ox O2 Del Method O2 Flow Rate 98.2 F 99 24 H 158/93 H 96 Nasal Cannula 3 08/11/24 16:14 08/11/24 16:41 08/11/24 16:41 08/11/24 16:14 08/11/24 16:41 08/11/24 16:14 08/11/24 16:41 Narrative Exam General: Awake. obese. on 2l O2 HEENT: Normocephalic, atraumatic, mucous membranes moist. Heart: Regular rate and rhythm, no murmurs. Lungs:B/l diffuse wheeze heard with overall decreased breath sounds Abdomen: Soft, nondistended, nontender, positive bowel sounds. ?No guarding or rebound tenderness. Neurologic: Alert and oriented x3, no gross neurological deficit, and patient able to move all 4 extremities. Extremities: B/l 4+ pitting pedal edema noted Skin: No rash or ecchymoses. Results: Labs 08/12/24 09:55 08/12/24 09:55 Labs: Urine 08/10/24 Range/Units 22:30 Urine Color Lt-Yellow (Lt Yel-Yel) Urine Clarity Clear (Clear/Hazy) Urine pH 6.5 (5.0-7.0) Ur Specific [place] 1.009 (1.001-1.035) Urine Protein Negative (Neg - Trace) Urine Glucose (UA) Negative (Negative) Quality Measures Quality Measures none Advance care planning discussed with:: patient Medications Home Medications and Allergies Home Medications ?Medication ?Instructions ?Recorded ?Confirmed ?Type furosemide 20 mg tablet 20 mg PO QDAY 09/04/21 09/24/21 History levothyroxine 50 mcg tablet 50 mcg PO QDAY 09/04/21 08/11/24 History potassium chloride 20 mEq 20 meq PO DAILY 09/04/21 08/11/24 History tablet,extended release tiotropium 2.5 mcg-olodaterol 2.5 2 puff inhalation QDAY 09/24/21 09/24/21 History mcg/actuation mist for inhalation (Stiolto Respimat) bumetanide 2 mg tablet 2 mg PO QDAY 08/11/24 08/11/24 History losartan 50 mg tablet 25 mg PO DAILY 08/11/24 08/11/24 History Allergies Allergy/AdvReac Type Severity Reaction Status Date / Time iodine Allergy NAUSEA, Verified 08/10/24 11:57 VOMITTING, CHILLS, DIARRHEA, FEVER Visit Medications Discontinued Medications Albuterol/Ipratropium (Albuterol/Ipratropium (Duoneb) Rt Ginger 3 Ml Nebu) 3 ml INH X1 ONE Stop: 08/10/24 20:40 Last Admin: 08/10/24 21:28 Dose: 3 ml Albuterol/Ipratropium (Albuterol/Ipratropium (Duoneb) Rt Ginger 3 Ml Nebu) 3 ml INH X1 ONE Stop: 08/11/24 00:55 Last Admin: 08/11/24 01:04 Dose: 3 ml Albuterol/Ipratropium (Albuterol/Ipratropium (Duoneb) Rt Ginger 3 Ml Nebu) 3 ml INH X1 ONE Stop: 08/11/24 11:19 Last Admin: 08/11/24 11:26 Dose: 3 ml Albuterol/Ipratropium (Albuterol/Ipratropium (Duoneb) Rt Ginger 3 Ml Nebu) 3 ml INH X1 ONE Stop: 08/11/24 14:28 Last Admin: 08/11/24 14:32 Dose: 3 ml Bumetanide (Bumetanide Inj 0.25 Mg/Ml Vial 4 Ml) 1 mg IVP X1 ONE Stop: 08/10/24 20:40 Last Admin: 08/10/24 21:34 Dose: 1 mg Diphenhydramine HCl (Diphenhydramine Inj 50 Mg/Ml Vial) 25 mg IVP X1 ONE Stop: 08/11/24 06:42 Last Admin: 08/11/24 10:10 Dose: 25 mg Famotidine (Famotidine Inj 10 Mg/Ml Vial 2 Ml) 20 mg IVP X1 ONE Stop: 08/11/24 06:42 Last Admin: 08/11/24 10:11 Dose: 20 mg Furosemide (Furosemide 40 Mg Tablet) 40 mg PO X1 ONE Stop: 08/10/24 19:18 Last Admin: 08/10/24 21:20 Dose: Not Given Hydralazine HCl (Hydralazine Inj 20 Mg/Ml Vial) 20 mg IV X1 ONE Stop: 08/11/24 00:11 Last Admin: 08/11/24 00:42 Dose: 20 mg Magnesium Sulfate/Dextrose (Magnesium Sulfate Ivpb) 1 gm in 100 mls @ 100 mls/hr IV X1 ONE Stop: 08/11/24 01:59 Last Infusion: 08/11/24 02:59 Dose: Infused Methylprednisolone Sodium Succinate (Methylprednisolone Sod Succ 62.5 Mg/Ml 2ml Vial) 125 mg IVP X1 ONE Stop: 08/11/24 00:55 Last Admin: 08/11/24 01:16 Dose: 125 mg Ondansetron HCl (Ondansetron Inj 2 Mg/Ml Inj 2 Ml) 4 mg IV X1 ONE; Protocol Stop: 08/11/24 06:47 Last Admin: 08/11/24 11:35 Dose: 4 mg Assessment & Plan Plan A 69-year-old female with significant past medical history of obesity, hypertension, hypothyroidism CAD, COPD on 2 to 3 L oxygen since 5 years, CHF presented to the hospital with chief complaints of shortness of breath since 3 days and admitted for Acute on chronic hypoxic respiratory failure secondary to Copd exacerbation # Acute on chronic hypoxic respiratory failure # Secondary to COPD exacerbation and CHF exacerbation -Presented to the hospital with complaints of worsening shortness of breath, wheezing, cough and pedal edema. -Denies fever, nausea, vomitings, palpitations, chest pain, diarrhea. -Denies any complaints with medications and change in her diet -Patient is using 2 L oxygen at baseline unable to do her routine daily activities -Labs significant for WBC 6.2, Hb 12.1, platelets 226, sodium 141, potassium 4.1, chloride 102, bicarb 32.5, BUN 9, creatinine 0.9, glucose 126 -Chest x-ray showed bilateral moderate vascular congestion. Chest CTA is negative for pulmonary embolism. EKG showed normal sinus rhythm Plan -Echocardiogram was ordered -Started on IV Bumex 1 Mg IV daily -Started on DuoNebs every 8 hourly -Started on IV prednisone 40 Mg IV daily -Influenza, COVID was ordered #Hypertension -Patient is using losartan 50 Mg p.o. twice daily at home Plan -Will resume her home medication -will continue to monitor # Hypothyroidism Patient is on 25 mcg p.o. daily Plan -TSH is ordered -Will resume her home medication Hospital Maintenance: Dispo: medsurg DVT ppx: lovenox GI ppx: protonox Diet : low sodium IV lines: peripheral Code status: Full code Patient plan of care was discussed with the attending physician, Dr. Tin Carcamo, PGY1 Attending Provider Attestation/Addendum Patient seen and examined with resident physician Dr. Martins. Note reviewed, agree with findings and recommendations. Patient admitted with CHF/COPD exacerbation. Echocardiogram ordered. Steroids, breathing treatments, antibiotics will be given. Currently on 5 L oxygen. Continue with IV Bumex. Significant edema noted.
[2024-08-11] MEDS: AZITHROMYCIN 250 MG TABLET 500 MG PO (18:22)
[2024-08-11] MEDS: BUMETANIDE INJ 0.25 MG/ML VIAL 4 ML 1 MG IVP (18:23)
[2024-08-12] VITALS (16 sets, daily range): BP systolic 125–137; BP diastolic 59–89; PULSE 81–92; RESP 18–20; TEMP 36.1–37; O2SAT 90–99
[2024-08-12] MEDS: ALBUTEROL/IPRATROPIUM (Duoneb) RT SOL 3 ML NEBU INH ×7 (00:23→22:27)
[2024-08-12] MEDS: BUMETANIDE INJ 0.25 MG/ML VIAL 4 ML 1 MG IVP (08:42)
[2024-08-12] MEDS: LOSARTAN POTASSIUM 25 MG TABLET 50 MG PO ×2 (08:43→20:15)
[2024-08-12] MEDS: predniSONE 20 MG TABLET 40 MG PO (08:43)
[2024-08-12] MEDS: PANTOPRAZOLE 40 MG TABLET PO (08:43)
[2024-08-12] MEDS: AZITHROMYCIN 250 MG TABLET 500 MG PO (08:43)
--- NOTE | 2024-08-12 10:40 | PD.RESPRO ---
Documentation for date of: 08/12/24 Subjective Subjective Interval history: Patient was seen and examined at bedside. Stated that her shortness of breath improved. Vitals are stable. Labs showed mild decrease in GFR to 54. Will monitor renal functions Exam Vital Signs Temp Pulse Resp BP Pulse Ox O2 Del Method O2 Flow Rate 97.4 F 86 19 125/60 93 L Room Air 2 08/12/24 08:00 08/12/24 08:43 08/12/24 08:00 08/12/24 08:43 08/12/24 08:00 08/12/24 08:00 08/12/24 07:13 Narrative Exam General: Awake. obese. on 2l O2 HEENT: Normocephalic, atraumatic, mucous membranes moist. Heart: Regular rate and rhythm, no murmurs. Lungs:B/l diffuse wheeze heard with overall decreased breath sounds Abdomen: Soft, nondistended, nontender, positive bowel sounds. ?No guarding or rebound tenderness. Neurologic: Alert and oriented x3, no gross neurological deficit, and patient able to move all 4 extremities. Extremities: B/l 4+ pitting pedal edema noted Skin: No rash or ecchymoses. Objective Labs 08/12/24 09:55 08/12/24 09:55 Quality Measures Quality Measures none Advance care planning discussed with:: patient Assessment & Plan Assessment Current Active Medications: Generic Name Dose Route Start Last Admin Trade Name Freq PRN Reason Stop Dose Admin Acetaminophen 650 mg 08/11/24 17:48 Acetaminophen 325 Mg Tablet PO 09/10/24 17:47 Q6H PRN Fever >101.5 Albuterol/Ipratropium 3 ml 08/12/24 07:00 08/12/24 07:11 Albuterol/Ipratropium (Duoneb) Rt Ginger 3 Ml Nebu INH 09/11/24 06:59 3 ml Q4HRRT STEVE Administration Albuterol/Ipratropium 3 ml 08/12/24 05:50 Albuterol/Ipratropium (Duoneb) Rt Ginger 3 Ml Nebu INH 09/11/24 05:49 Q2HR PRN SHORTNESS OF BREATH OR WHEEZE Azithromycin 500 mg 08/11/24 18:00 08/12/24 08:43 Azithromycin 250 Mg Tablet PO 08/18/24 17:59 500 mg QDAY STEVE Administration Bumetanide 1 mg 08/11/24 18:00 08/12/24 08:42 Bumetanide Inj 0.25 Mg/Ml Vial 4 Ml IVP 09/10/24 17:59 1 mg QDAY STEVE Administration Enoxaparin Sodium 40 mg 08/12/24 09:00 08/12/24 08:49 Enoxaparin Sod Inj 40 Mg/0.4 Ml Syringe SC 08/26/24 08:59 Not Given QDAY STEVE Losartan Potassium 50 mg 08/11/24 21:00 08/12/24 08:43 Losartan Potassium 25 Mg Tablet PO 09/10/24 20:59 50 mg BID STEVE Administration Magnesium Hydroxide 30 ml 08/11/24 17:48 Milk Of Magnesia Susp 30 Ml Udc PO 09/10/24 17:47 QDAY PRN CONSTIPATION Protocol Ondansetron HCl 4 mg 08/11/24 17:48 Ondansetron Inj 2 Mg/Ml Inj 2 Ml IV 09/10/24 17:47 Q6H PRN NAUSEA OR VOMITING Protocol Pantoprazole Sodium 40 mg 08/12/24 09:00 08/12/24 08:43 Pantoprazole 40 Mg Tablet PO 09/11/24 08:59 40 mg QDAY STEVE Administration Prednisone 40 mg 08/12/24 09:00 08/12/24 08:43 Prednisone 20 Mg Tablet PO 08/15/24 08:59 40 mg QDAY STEVE Administration Plan A 69-year-old female with significant past medical history of obesity, hypertension, hypothyroidism CAD, COPD on 2 to 3 L oxygen since 5 years, CHF presented to the hospital with chief complaints of shortness of breath since 3 days and admitted for Acute on chronic hypoxic respiratory failure secondary to Copd exacerbation # Acute on chronic hypoxic respiratory failure # Secondary to COPD exacerbation and CHF exacerbation -Presented to the hospital with complaints of worsening shortness of breath, wheezing, cough and pedal edema. -Denies fever, nausea, vomitings, palpitations, chest pain, diarrhea. -Denies any complaints with medications and change in her diet -Patient is using 2 L oxygen at baseline unable to do her routine daily activities -Labs significant for WBC 6.2, Hb 12.1, platelets 226, sodium 141, potassium 4.1, chloride 102, bicarb 32.5, BUN 9, creatinine 0.9, glucose 126 -Chest x-ray showed bilateral moderate vascular congestion. Chest CTA is negative for pulmonary embolism. EKG showed normal sinus rhythm -Influenza, COVID was ordered - negative Plan -Echocardiogram was ordered -Started on IV Bumex 1 Mg IV daily -Started on DuoNebs every 8 hourly -Started on IV methylprednisone 62.5 Mg IV daily -Started on azithromycin and ceftriaxone #Hypertension -Patient is using losartan 50 Mg p.o. twice daily at home Plan -Will resume her home medication -will continue to monitor # Hypothyroidism Patient is on 25 mcg p.o. daily Plan -TSH is ordered -Will resume her home medication Hospital Maintenance: Dispo: medsurg DVT ppx: lovenox GI ppx: protonox Diet : low sodium IV lines: peripheral Code status: Full code Patient plan of care was discussed with the attending physician, Dr. Tin Carcamo, PGY1 Attending Provider Attestation/Addendum Patient seen and examined with resident physician Dr. Martins. Note reviewed, agree with findings and recommendations. Patient still having significant wheezing and cough with shortness of breath. Changed to IV steroids, breathing treatments [id number], antibiotics added. Not ready for discharge. Currently on 5 L oxygen.
[2024-08-12 10:49] LABS: Basophils # (Auto) 0.1 Thou/mm3 (0.0-0.2); Basophils % (Auto) 1 % (0-2.5); Eosinophils # (Auto) 0.2 Thou/mm3 (0.0-0.5); Eosinophils % (Auto) 2 % (0-10); Hematocrit 38.5 % (36.0-46.0); Hemoglobin 12.2 g/dL (12.0-16.0); Immature Granulocytes % (Auto) 1 % (0-0); Immature Granulocytes Auto 0.06 Thou/mm3 (0.00-0.00); Lymphocytes # (Auto) 1.5 Thou/mm3 (1.0-4.8); Lymphocytes % (Auto) 17 % (10-50); Mean Corpuscular HGB Conc 31.7 g/dl (31.0-37.0); Mean Corpuscular Hemoglobin 31.5 pg (25.0-35.0); Mean Corpuscular Volume 100 fL (80-100); Monocytes # (Auto) 0.6 Thou/mm3 (0.0-0.8); Monocytes % (Auto) 6 % (0-12); Neutrophils # (Auto) 6.9 Thou/mm3 (1.8-7.7); Neutrophils % (Auto) 74 % (37-80); Nucleated Red Blood Cell % 0 /100 WBC (0); Platelet Count 253 Thou/mm3 (140-440); RDW Standard Deviation 49.2 fL (36.4-46.3); Red Blood Count 3.87 Miln/mm3 (4.00-5.20); White Blood Count 9.3 Thou/mm3 (3.6-11.0)
[2024-08-12 12:10] LABS: Alanine Aminotransferase 17 U/L (10-49); Albumin, Serum 4.2 gm/dL (3.4-4.8); Albumin/Globulin Ratio 1.8 (1.2-2.2); Alkaline Phosphatase 83 U/L (46-116); Anion Gap 8 (7-16); Aspartate Amino Transferase 19 U/L (0-34); BUN/Creatinine Ratio 14 Ratio (12-20); Bilirubin,Total 0.4 mg/dL (0.3-1.2); Blood Urea Nitrogen 15 mg/dL (9-23); Calcium 9.3 mg/dL (8.3-10.6); Calcium (Corrected) 9.3 mg/dL (8.5-10.1); Carbon Dioxide 32.8 mMol/L (20.0-31.0); Chloride 101 mMol/L (98-107); Creatinine (Component) 1.1 mg/dL (0.6-1.3); Estimated Creatinine Clearance 51.7 mL/min (>60); Globulin 2.3 gm/dL (2.3-3.5); Glucose 126 mg/dL (74-106); Magnesium 2.2 mg/dL (1.6-2.6); Osmolality,Calculated 285 (275-295); Potassium 3.9 mMol/L (3.4-5.1); Sodium 142 mMol/L (136-145); Total Protein 6.5 gm/dL (5.7-8.2); eGFR 54 See Note
[2024-08-12] MEDS: ACETAMINOPHEN 325 MG TABLET 650 MG PO ×2 (12:27→19:10)
[2024-08-12] MEDS: MethylPREDNISolone SOD SUCC 62.5 MG/ML 2ML VIAL IVP (14:35)
[2024-08-12] MEDS: cefTRIAXone 1,000 MG in SODIUM CHLORIDE 0.9% (Popper) 50 ML 100 MG IV (14:36)
--- NOTE | 2024-08-12 17:18 | ECHO_ITS ---
Transthoracic Echo Report Ht (in): 61 Wt (lb): 221 Exam Location: [facility] Status: Inpatient Recruit Instructor: MARTINS Phuong^^^^ Indications: Procedure Performed: BP: 142 / 81 HR: 83 Technical Quality: Fair MEASUREMENTS (Male / Female) Normal Values 2D ECHO LV Diastolic Diameter PLAX 3.8 cm 4.2 - 5.9 / 3.9 - 5.3 cm LV Systolic Diameter PLAX 2.4 cm IVS Diastolic Thickness 1.3 cm 0.6 - 1.0 / 0.6 - 0.9 cm LVPW Diastolic Thickness 1.0 cm 0.6 - 1.0 / 0.6 - 0.9 cm LV Relative Wall Thickness 0.6 LVOT Diameter 1.7 cm Aortic Root Diameter 3.0 cm LA Systolic Diameter LX 3.7 cm 3.0 - 4.0 / 2.7 - 3.8 cm LV Ejection Fraction MOD BP 65.1 % >= 55 % LV Cardiac Index MOD BP 2733.4 cm?/min?m? LV Ejection Fraction MOD 4C 73.5 % LV Cardiac Index MOD 4C 4117.7 cm?/min?m? LV Ejection Fraction 4C AL 74.2 % LV Cardiac Index 4C AL 4333.3 cm?/min?m? LV Ejection Fraction MOD 2C 49.4 % LV Cardiac Index MOD 2C 1345.3 cm?/min?m? LV Ejection Fraction 2C AL 52.1 % LV Cardiac Index 2C AL 1432.0 cm?/min?m? LA Volume Index 28.5 cm?/m? 16 - 28 cm?/m? Ascending Aorta Diameter 2.5 cm DOPPLER AV Peak Velocity 183.7 cm/s AV Peak Gradient 13.5 mmHg AV Mean Gradient 8.0 mmHg AV Velocity Time Integral 41.1 cm LVOT Peak Velocity 147.0 cm/s LVOT Peak Gradient 8.6 mmHg LVOT Velocity Time Integral 40.6 cm LVOT Cardiac Index 3583.2 cm?/min?m? AV Area Cont Eq vti 2.2 cm? AV Area Cont Eq pk 1.8 cm? MV Area PHT 3.4 cm? Mitral E Point Velocity 94.9 cm/s Mitral A Point Velocity 99.8 cm/s Mitral E to A Ratio 1.0 LV E' Lateral Velocity 12.6 cm/s Mitral E to LV E' Lateral Ratio 7.5 LV E' Septal Velocity 8.7 cm/s Mitral E to LV E' Septal Ratio 11.0 TR Peak Velocity 402.3 cm/s TR Peak Gradient 64.7 mmHg PV Peak Velocity 121.0 cm/s PV Peak Gradient 5.9 mmHg RVOT Peak Velocity 52.5 cm/s FINDINGS Left Ventricle Normal left ventricular size, wall thickness, systolic function with no obvious regional wall motion abnormalities. There is grade I diastolic dysfunction of the left ventricle (impaired relaxation pattern). The left ventricular ejection fraction is normal, estimated at 60-65%. Right Ventricle The right ventricle is normal in size and systolic function. Estimated right ventricular systolic pressure is moderately elevated, 67 mmHg. Left Atrium The left atrium is normal by two-dimensional, color flow and Doppler imaging with no structural abnormalities, no thrombus formation present. Right Atrium The right atrial cavity size is mildly increased. Atrial Septum The interatrial septum appears normal with no evidence of a shunt. Aorta The aorta is normal by two-dimensional, color flow and Doppler interrogation. Mitral Valve Trace to mild mitral regurgitation. Mild mitral annular calcification. Aortic Valve Aortic valve sclerosis. Tricuspid Valve There is moderate to severe tricuspid valve regurgitation. Pulmonic Valve The pulmonic valve is not well visualized. There is no significant pulmonic valve regurgitation. Vessels The pulmonary artery appears normal. The inferior vena cava pulmonary and hepatic veins appear normal. Pericardium The pericardium is normal by two-dimensional imaging. There is no significant pericardial effusion. CONCLUSIONS indication: CHF Normal left ventricular size and function. Approximate ejection fraction is 60-65% RV appears normal with moderately elevated RVSP 67 mmHg. Moderate pulmonary hypertension RA is mildly dilated Mild MR Aortic valve sclerosis moderate-severe TR. Liset Mir (Electronically Signed) Final Date: 15 August 2024 17:58
[2024-08-12] MEDS: Milk Of Magnesia Susp 30 ML UDC PO (19:10)
--- NOTE | 2024-08-12 21:30 | PC.NURSE ---
Pt complain of headache not relieve by Tylenol PO, Md Castle made aware, new order made to give Tramadol Po as needed for headache.
[2024-08-12] MEDS: traMADol HCL 50 MG TABLET PO (22:18)
--- NOTE | 2024-08-12 22:45 | PC.NURSE ---
Pt has a productive cough, MD pyle made aware, new order made to give Promethazine DM PO as needed for cough.
[2024-08-12] MEDS: PROMETHAZINE/DM SYRUP 5 ML DOSE PO (23:06)
[2024-08-13] VITALS (15 sets, daily range): BP systolic 111–156; BP diastolic 65–84; PULSE 70–83; RESP 17–20; TEMP 36.4–36.8; O2SAT 91–100
[2024-08-13] MEDS: ALBUTEROL/IPRATROPIUM (Duoneb) RT SOL 3 ML NEBU INH ×6 (02:23→22:18)
[2024-08-13] MEDS: LEVOTHYROXINE SODIUM 25 MCG TABLET 50 MCG PO (05:11)
[2024-08-13] MEDS: PROMETHAZINE/DM SYRUP 5 ML DOSE PO ×3 (05:14→23:49)
[2024-08-13] MEDS: traMADol HCL 50 MG TABLET PO ×3 (05:14→23:49)
[2024-08-13 06:07] LABS: Basophils % (Auto) 0 % (0-2.5); Eosinophils % (Auto) 0 % (0-10); Hemoglobin 10.9 g/dL (12.0-16.0); Immature Granulocytes % (Auto) 1 % (0-0); Immature Granulocytes Auto 0.07 Thou/mm3 (0.00-0.00); Lymphocytes # (Auto) 0.9 Thou/mm3 (1.0-4.8); Lymphocytes % (Auto) 10 % (10-50); Mean Corpuscular HGB Conc 32.1 g/dl (31.0-37.0); Mean Corpuscular Hemoglobin 31.5 pg (25.0-35.0); Mean Corpuscular Volume 98 fL (80-100); Monocytes # (Auto) 0.4 Thou/mm3 (0.0-0.8); Monocytes % (Auto) 4 % (0-12); Neutrophils # (Auto) 7.6 Thou/mm3 (1.8-7.7); Neutrophils % (Auto) 84 % (37-80); Nucleated Red Blood Cell % 0 /100 WBC (0); Platelet Count 236 Thou/mm3 (140-440); RDW Standard Deviation 46.9 fL (36.4-46.3); Red Blood Count 3.46 Miln/mm3 (4.00-5.20)
[2024-08-13 07:02] LABS: Alanine Aminotransferase 16 U/L (10-49); Albumin/Globulin Ratio 1.7 (1.2-2.2); Alkaline Phosphatase 72 U/L (46-116); Anion Gap 6 (7-16); Aspartate Amino Transferase 23 U/L (0-34); BUN/Creatinine Ratio 20 Ratio (12-20); Bilirubin,Total 0.4 mg/dL (0.3-1.2); Blood Urea Nitrogen 18 mg/dL (9-23); Calcium 9.2 mg/dL (8.3-10.6); Calcium (Corrected) 9.2 mg/dL (8.5-10.1); Carbon Dioxide 34.4 mMol/L (20.0-31.0); Chloride 96 mMol/L (98-107); Creatinine (Component) 0.9 mg/dL (0.6-1.3); Estimated Creatinine Clearance 63.2 mL/min (>60); Globulin 2.3 gm/dL (2.3-3.5); Glucose 122 mg/dL (74-106); Magnesium 2.7 mg/dL (1.6-2.6); Osmolality,Calculated 274 (275-295); Potassium 4.2 mMol/L (3.4-5.1); Sodium 136 mMol/L (136-145); Thyroid Stimulating Hormone 0.63 uIU/mL (0.55-4.78); Total Protein 6.3 gm/dL (5.7-8.2); eGFR > 60 See Note
[2024-08-13] MEDS: PANTOPRAZOLE 40 MG TABLET PO (08:26)
[2024-08-13] MEDS: cefTRIAXone 1,000 MG in SODIUM CHLORIDE 0.9% (Popper) 50 ML 100 MG IV (08:26)
[2024-08-13] MEDS: LOSARTAN POTASSIUM 25 MG TABLET 50 MG PO ×2 (08:26→20:14)
[2024-08-13] MEDS: AZITHROMYCIN 250 MG TABLET 500 MG PO (08:27)
[2024-08-13] MEDS: BUMETANIDE INJ 0.25 MG/ML VIAL 4 ML 1 MG IVP (08:27)
[2024-08-13] MEDS: MethylPREDNISolone SOD SUCC 62.5 MG/ML 2ML VIAL IVP (08:27)
[2024-08-13] MEDS: Milk Of Magnesia Susp 30 ML UDC PO (12:02)
--- NOTE | 2024-08-13 14:49 | ESPR_ITS ---
Documentation for date of: 08/13/24 Subjective Subjective Interval history: 69-year-old female with significant past medical history of obesity, hypertension, hypothyroidism CAD, COPD on 2 to 3 L oxygen since 5 years, CHF presented to the hospital with chief complaints of shortness of breath since 3 days. Patient was apparently normal 3 weeks ago, had similar complaints and came to ED on 07/22/2024 and was discharged to home with steroids and antibiotics. Patient felt normal during the treatment with steroids and antibiotics but later again she started developing shortness of breath. At baseline, patient is able to do her routine daily activities and ambulate around the house. But since last 3 days worsening shortness of breath and increased her oxygen supply to 4 L. Also complaining of worsening cough associated with mild sputum. Denies fever, nausea, vomitings, abdominal distention, burning micturition. Noticed bilateral pedal edema and patient endorsed that she is on Bumex 1 Mg but still having swelling both lower extremities since 3 months. ED Course: -Initial vitals were Blood pressure 140/84 mmHg, pulse rate 80 bpm, respiratory rate 20/min, temperature 97.7 ?F, SpO2 97% with 3 L oxygen -Labs significant for WBC 6.2, Hb 12.1, platelets 226, sodium 141, potassium 4.1, chloride 102, bicarb 32.5, BUN 9, creatinine 0.9, glucose 126 -Chest x-ray showed bilateral moderate vascular congestion. Chest CTA is negative for pulmonary embolism. EKG showed normal sinus rhythm -In the ED, patient was given DuoNeb inhalation, Bumex, hydralazine, steroids -Patient was admitted for Acute on chronic hypoxic respiratory failure secondary to COPD exacerbation. 08/13/2024 Patient was seen and examined bedside. Patient reported that last night she had severe cough for which she received promethazine and dextromethorphan syrup Today patient stated that she is feeling well and able to ambulate around the room Vitals are stable Planning to discharge tomorrow Exam Vital Signs Temp Pulse Resp BP Pulse Ox O2 Del Method O2 Flow Rate 97.6 F 77 19 144/78 H 100 Nasal Cannula 2 08/13/24 12:00 08/13/24 14:06 08/13/24 14:06 08/13/24 12:00 08/13/24 14:06 08/13/24 12:00 08/13/24 14:06 Narrative Exam General: Awake. HEENT: Normocephalic, atraumatic, mucous membranes moist. Heart: Regular rate and rhythm, no murmurs. Lungs: Clear to auscultation with no crackles. Mild occasional wheeze noted. Abdomen: Soft, nondistended, nontender, positive bowel sounds. ?No guarding or rebound tenderness. Neurologic: Alert and oriented x3, no gross neurological deficit, and patient able to move all 4 extremities. Extremities: Bilateral 4+ pitting pedal edema noted Skin: No rash or ecchymoses. Objective Labs 08/13/24 05:05 08/13/24 05:05 Labs: Laboratory Results - last 24 hr 08/13/24 05:05 WBC 9.0 RBC 3.46 L Hgb 10.9 L Hct 34.0 L MCV 98 MCH 31.5 MCHC 32.1 RDW Std Deviation 46.9 H Plt Count 236 Neut % (Auto) 84 H Lymph % (Auto) 10 [place] % (Auto) 4 Eos % (Auto) 0 Baso % (Auto) 0 Neut # (Auto) 7.6 Lymph # (Auto) 0.9 L [place] # (Auto) 0.4 Eos # (Auto) 0.0 Baso # (Auto) 0.0 Immature Gran # (Auto) 0.07 H Absolute Nucleated RBC 0.00 Immature Gran % 1 H Nucleated RBC % 0 Sodium 136 Potassium 4.2 Chloride 96 L Carbon Dioxide 34.4 H Anion Gap 6 L BUN 18 Creatinine 0.9 Estim Creat Clear Calc 63.2 eGFR > 60 BUN/Creatinine Ratio 20 Glucose 122 H Calculated Osmolality 274 L Calcium 9.2 Corrected Calcium 9.2 Magnesium 2.7 H Total Bilirubin 0.4 AST 23 ALT 16 Alkaline Phosphatase 72 Total Protein 6.3 Albumin 4.0 Globulin 2.3 Albumin/Globulin Ratio 1.7 TSH 0.63 Quality Measures Quality Measures none Advance care planning discussed with:: patient Assessment & Plan Assessment Current Active Medications: Generic Name Dose Route Start Last Admin Trade Name Freq PRN Reason Stop Dose Admin Acetaminophen 650 mg 08/12/24 15:45 08/12/24 19:10 Acetaminophen 325 Mg Tablet PO 09/10/24 17:47 650 mg Q6H PRN Administration Fever >100.3 or pain 1-3 Albuterol/Ipratropium 3 ml 08/12/24 07:00 08/13/24 14:06 Albuterol/Ipratropium (Duoneb) Rt Ginger 3 Ml Nebu INH 09/11/24 06:59 3 ml Q4HRRT STEVE Administration Albuterol/Ipratropium 3 ml 08/12/24 05:50 Albuterol/Ipratropium (Duoneb) Rt Ginger 3 Ml Nebu INH 09/11/24 05:49 Q2HR PRN SHORTNESS OF BREATH OR WHEEZE Azithromycin 500 mg 08/11/24 18:00 08/13/24 08:27 Azithromycin 250 Mg Tablet PO 08/18/24 17:59 500 mg QDAY STEVE Administration Bumetanide 1 mg 08/11/24 18:00 08/13/24 08:27 Bumetanide Inj 0.25 Mg/Ml Vial 4 Ml IVP 09/10/24 17:59 1 mg QDAY STEVE Administration Enoxaparin Sodium 40 mg 08/12/24 09:00 08/13/24 08:18 Enoxaparin Sod Inj 40 Mg/0.4 Ml Syringe SC 08/26/24 08:59 Not Given QDAY STEVE Ceftriaxone Sodium 1,000 mg/ 50 mls @ 100 mls/hr 08/12/24 14:17 08/13/24 08:26 Sodium Chloride IV 08/19/24 14:16 100 mls/hr QDAY STEVE Administration Levothyroxine Sodium 50 mcg 08/13/24 06:00 08/13/24 05:11 Levothyroxine Sodium 25 Mcg Tablet PO 09/12/24 05:59 50 mcg ACBR STEVE Administration Losartan Potassium 50 mg 08/11/24 21:00 08/13/24 08:26 Losartan Potassium 25 Mg Tablet PO 09/10/24 20:59 50 mg BID STEVE Administration Magnesium Hydroxide 30 ml 08/11/24 17:48 08/13/24 12:02 Milk Of Magnesia Susp 30 Ml Udc PO 09/10/24 17:47 30 ml QDAY PRN Administration CONSTIPATION Protocol Methylprednisolone Sodium Succinate 62.5 mg 08/12/24 14:30 08/13/24 08:27 Methylprednisolone Sod Succ 62.5 Mg/Ml 2ml Vial IVP 08/19/24 14:29 62.5 mg DAILY STEVE Administration Ondansetron HCl 4 mg 08/11/24 17:48 Ondansetron Inj 2 Mg/Ml Inj 2 Ml IV 09/10/24 17:47 Q6H PRN NAUSEA OR VOMITING Protocol Pantoprazole Sodium 40 mg 08/12/24 09:00 08/13/24 08:26 Pantoprazole 40 Mg Tablet PO 09/11/24 08:59 40 mg QDAY STEVE Administration Promethazine HCl/Dextromethorphan 5 ml 08/12/24 22:54 08/13/24 05:14 Promethazine/Dm Syrup 5 Ml Dose PO 09/11/24 22:41 5 ml Q4HR PRN Administration COUGH Protocol Tramadol HCl 50 mg 08/12/24 22:05 08/13/24 05:14 Tramadol Hcl 50 Mg Tablet PO 08/17/24 22:04 50 mg Q6HR PRN Administration PAIN SCALE 4-10(Mod-Sev Plan A 69-year-old female with significant past medical history of obesity, hypertension, hypothyroidism CAD, COPD on 2 to 3 L oxygen since 5 years, CHF presented to the hospital with chief complaints of shortness of breath since 3 days and admitted for Acute on chronic hypoxic respiratory failure secondary to Copd exacerbation # Acute on chronic hypoxic respiratory failure # Secondary to COPD exacerbation and CHF exacerbation -Presented to the hospital with complaints of worsening shortness of breath, wheezing, cough and pedal edema. -Denies fever, nausea, vomitings, palpitations, chest pain, diarrhea. -Denies any complaints with medications and change in her diet -Patient is using 2 L oxygen at baseline unable to do her routine daily activities -Labs significant for WBC 6.2, Hb 12.1, platelets 226, sodium 141, potassium 4.1, chloride 102, bicarb 32.5, BUN 9, creatinine 0.9, glucose 126 -Chest x-ray showed bilateral moderate vascular congestion. Chest CTA is negative for pulmonary embolism. EKG showed normal sinus rhythm -Influenza, COVID was ordered - negative Plan -Echocardiogram was ordered -Started on IV Bumex 1 Mg IV daily -Started on DuoNebs every 8 hourly -Started on IV methylprednisone 62.5 Mg IV daily -Started on azithromycin and ceftriaxone -Started on promethazine and Dextromethorphan #Hypertension -Patient is using losartan 50 Mg p.o. twice daily at home Plan -Will resume her home medication -will continue to monitor # Hypothyroidism Patient is on 25 mcg p.o. daily Plan -TSH is ordered -Will resume her home medication Hospital Maintenance: Dispo: medsurg DVT ppx: lovenox GI ppx: protonox Diet : low sodium IV lines: peripheral Code status: Full code Patient plan of care was discussed with the attending physician, Dr. Tin Carcamo, PGY1 Attending Provider Attestation/Addendum Patient seen and examined with resident physician Dr. Martins. Note reviewed, agree with findings and recommendations. Patient still having wheezing and cough with shortness of breath. Changed to IV steroids, breathing treatments [id number], antibiotics added. Not ready for discharge. Currently on 3 L oxygen. Added promethazine with DM cough syrup. Physical therapy, ambulate. Possible discharge in the next 1 to 2 days.
[2024-08-14] VITALS (15 sets, daily range): BP systolic 128–153; BP diastolic 60–90; PULSE 72–89; RESP 17–20; TEMP 36.4–36.8; O2SAT 92–100
[2024-08-14] MEDS: ALBUTEROL/IPRATROPIUM (Duoneb) RT SOL 3 ML NEBU INH ×5 (02:35→22:04)
[2024-08-14] MEDS: LEVOTHYROXINE SODIUM 25 MCG TABLET 50 MCG PO (05:26)
[2024-08-14 05:40] LABS: Basophils % (Auto) 0 % (0-2.5); Eosinophils % (Auto) 0 % (0-10); Hematocrit 37.1 % (36.0-46.0); Hemoglobin 11.9 g/dL (12.0-16.0); Immature Granulocytes % (Auto) 1 % (0-0); Immature Granulocytes Auto 0.09 Thou/mm3 (0.00-0.00); Lymphocytes # (Auto) 1.2 Thou/mm3 (1.0-4.8); Lymphocytes % (Auto) 14 % (10-50); Mean Corpuscular HGB Conc 32.1 g/dl (31.0-37.0); Mean Corpuscular Hemoglobin 31.3 pg (25.0-35.0); Mean Corpuscular Volume 98 fL (80-100); Monocytes # (Auto) 0.5 Thou/mm3 (0.0-0.8); Monocytes % (Auto) 6 % (0-12); Neutrophils # (Auto) 7.1 Thou/mm3 (1.8-7.7); Neutrophils % (Auto) 79 % (37-80); Nucleated Red Blood Cell % 0 /100 WBC (0); Platelet Count 250 Thou/mm3 (140-440); RDW Standard Deviation 46.8 fL (36.4-46.3)
[2024-08-14 05:52] LABS: Anion Gap 6 (7-16); BUN/Creatinine Ratio 17 Ratio (12-20); Blood Urea Nitrogen 15 mg/dL (9-23); Calcium 9.5 mg/dL (8.3-10.6); Carbon Dioxide 35.2 mMol/L (20.0-31.0); Chloride 95 mMol/L (98-107); Creatinine (Component) 0.9 mg/dL (0.6-1.3); Estimated Creatinine Clearance 63.2 mL/min (>60); Glucose 108 mg/dL (74-106); Magnesium 2.7 mg/dL (1.6-2.6); Osmolality,Calculated 273 (275-295); Potassium 4.8 mMol/L (3.4-5.1); Sodium 136 mMol/L (136-145); eGFR > 60 See Note
[2024-08-14] MEDS: LOSARTAN POTASSIUM 25 MG TABLET 50 MG PO ×2 (08:01→20:07)
[2024-08-14] MEDS: AZITHROMYCIN 250 MG TABLET 500 MG PO (08:01)
[2024-08-14] MEDS: cefTRIAXone 1,000 MG in SODIUM CHLORIDE 0.9% (Popper) 50 ML 100 MG IV (08:02)
[2024-08-14] MEDS: BUMETANIDE INJ 0.25 MG/ML VIAL 4 ML 1 MG IVP (08:02)
[2024-08-14] MEDS: PANTOPRAZOLE 40 MG TABLET PO (08:03)
[2024-08-14] MEDS: MethylPREDNISolone SOD SUCC 62.5 MG/ML 2ML VIAL IVP (08:03)
[2024-08-14] MEDS: ONDANSETRON INJ 2 MG/ML INJ 2 ML 4 MG IV (10:46)
--- NOTE | 2024-08-14 12:00 | ESPR_ITS ---
Documentation for date of: 08/14/24 Subjective Subjective Interval history: 69-year-old female with significant past medical history of obesity, hypertension, hypothyroidism CAD, COPD on 2 to 3 L oxygen since 5 years, CHF presented to the hospital with chief complaints of shortness of breath since 3 days. Patient was apparently normal 3 weeks ago, had similar complaints and came to ED on 07/22/2024 and was discharged to home with steroids and antibiotics. Patient felt normal during the treatment with steroids and antibiotics but later again she started developing shortness of breath. At baseline, patient is able to do her routine daily activities and ambulate around the house. But since last 3 days worsening shortness of breath and increased her oxygen supply to 4 L. Also complaining of worsening cough associated with mild sputum. Denies fever, nausea, vomitings, abdominal distention, burning micturition. Noticed bilateral pedal edema and patient endorsed that she is on Bumex 1 Mg but still having swelling both lower extremities since 3 months. ED Course: -Initial vitals were Blood pressure 140/84 mmHg, pulse rate 80 bpm, respiratory rate 20/min, temperature 97.7 ?F, SpO2 97% with 3 L oxygen -Labs significant for WBC 6.2, Hb 12.1, platelets 226, sodium 141, potassium 4.1, chloride 102, bicarb 32.5, BUN 9, creatinine 0.9, glucose 126 -Chest x-ray showed bilateral moderate vascular congestion. Chest CTA is negative for pulmonary embolism. EKG showed normal sinus rhythm -In the ED, patient was given DuoNeb inhalation, Bumex, hydralazine, steroids -Patient was admitted for Acute on chronic hypoxic respiratory failure secondary to COPD exacerbation. 08/13/2024 Patient was seen and examined bedside. Patient reported that last night she had severe cough for which she received promethazine and dextromethorphan syrup Today patient stated that she is feeling well and able to ambulate around the room Vitals are stable Planning to discharge tomorrow 08/14/2024Patient currently seen in medical floor resting comfortably. Denies any chest pain. Does have significant cough still and wheezing. Complaining of constipation. Lactulose given. Edema markedly improved. Labs/medications reviewed. Review of Systems Review of Systems Narrative Review of Systems: CONSTITUTIONAL: Patient denies any fever, chills. HEENT: Denies any visual disturbances or hearing problems. CARDIOVASCULAR: Patient denies any chest pain. c/o shortness of breath, swelling in the lower extremities. PULMONARY: Patient complaining of shortness of breath, cough. GASTROINTESTINAL: Patient denies any abdominal pain, nausea, vomiting, diarrhea. Complaining of constipation GENITOURINARY: Patient denies any urinary symptoms of burning or frequency or hematuria, denies any form in the urine. SKIN: Denies any rash. MUSCULOSKELETAL: Denies any muscular skeletal problems of joint pains. Complaining of gait imbalance NEUROLOGICAL: Denies any neurological problems of strokes, seizures or confusion. Denies any memory problems. PSYCHIATRIC: Denies any depression or anxiety. LYMPHATICS : No lymphadenopathy Exam Vital Signs Temp Pulse Resp BP Pulse Ox O2 Del Method O2 Flow Rate 36.4 C 73 20 152/83 H 100 Nasal Cannula 3 08/14/24 08:00 08/14/24 10:13 08/14/24 10:13 08/14/24 08:02 08/14/24 10:13 08/14/24 08:00 08/14/24 10:13 Narrative Exam GENERAL APPEARANCE: Patient seems to be comfortable, adequately hydrated and nourished. HEENT: EOMI, PERRLA NECK: Neck supple, no JVD or bruit CARDIOVASCULAR: Heart regular, no murmurs LUNGS/CHEST: Decreased breath sounds bilaterally with mild expiratory wheezing. ABDOMEN: Soft, nontender, nondistended. No masses. Normal bowel sounds. EXTREMITIES: 1+ edema noted in the lower extremities SKIN: Skin exam normal without any rashes MUSCULOSKELETAL: Musculoskeletal exam normal PSYCHIATRIC: Normal mood, affect LYMPHATICS: No lymphadenopathy noted NEUROLOGICAL : No neurological deficits Objective Labs 08/14/24 04:50 08/14/24 04:50 Labs: Laboratory Results - last 24 hr 08/14/24 04:50 WBC 9.0 RBC 3.80 L Hgb 11.9 L Hct 37.1 MCV 98 MCH 31.3 MCHC 32.1 RDW Std Deviation 46.8 H Plt Count 250 Neut % (Auto) 79 Lymph % (Auto) 14 [place] % (Auto) 6 Eos % (Auto) 0 Baso % (Auto) 0 Neut # (Auto) 7.1 Lymph # (Auto) 1.2 [place] # (Auto) 0.5 Eos # (Auto) 0.0 Baso # (Auto) 0.0 Immature Gran # (Auto) 0.09 H Absolute Nucleated RBC 0.00 Immature Gran % 1 H Nucleated RBC % 0 Sodium 136 Potassium 4.8 D Chloride 95 L Carbon Dioxide 35.2 H Anion Gap 6 L BUN 15 Creatinine 0.9 Estim Creat Clear Calc 63.2 eGFR > 60 BUN/Creatinine Ratio 17 Glucose 108 H Calculated Osmolality 273 L Calcium 9.5 Magnesium 2.7 H Assessment & Plan Additional Assessment & Plan Additional Plan: 69-year-old female with significant past medical history of obesity, hypertension, hypothyroidism CAD, COPD on 2 to 3 L oxygen since 5 years, CHF presented to the hospital with chief complaints of shortness of breath since 3 days and admitted for Acute on chronic hypoxic respiratory failure secondary to Copd exacerbation # Acute on chronic hypoxic respiratory failure # Secondary to COPD exacerbation and CHF exacerbation -Presented to the hospital with complaints of worsening shortness of breath, wheezing, cough and pedal edema. -Denies fever, nausea, vomitings, palpitations, chest pain, diarrhea. -Denies any complaints with medications and change in her diet -Patient is using 2 L oxygen at baseline unable to do her routine daily activities -Labs significant for WBC 6.2, Hb 12.1, platelets 226, sodium 141, potassium 4.1, chloride 102, bicarb 32.5, BUN 9, creatinine 0.9, glucose 126 -Chest x-ray showed bilateral moderate vascular congestion. Chest CTA is negative for pulmonary embolism. EKG showed normal sinus rhythm -Influenza, COVID was ordered - negative Plan -Echocardiogram was ordered -Started on IV Bumex 1 Mg IV daily -Started on DuoNebs every 8 hourly -Started on IV methylprednisone 62.5 Mg IV daily -Started on azithromycin and ceftriaxone -Started on promethazine and Dextromethorphan #Hypertension -Patient is using losartan 50 Mg p.o. twice daily at home Plan -Will resume her home medication -will continue to monitor # Hypothyroidism Patient is on 25 mcg p.o. daily Plan -TSH is ordered -Will resume her home medication Hospital Maintenance: Dispo: medsurg DVT ppx: lovenox GI ppx: protonox Diet : low sodium IV lines: peripheral Code status: Full code
[2024-08-14] MEDS: LACTULOSE SYRUP 20 GM/30 ML UDC 15 GM PO ×2 (16:15→22:17)
[2024-08-14] MEDS: PROMETHAZINE/DM SYRUP 5 ML DOSE PO (17:33)
[2024-08-14] MEDS: Milk Of Magnesia Susp 30 ML UDC PO (20:07)
[2024-08-14] MEDS: traMADol HCL 50 MG TABLET PO (22:21)
[2024-08-15] VITALS (15 sets, daily range): BP systolic 90–161; BP diastolic 66–100; PULSE 66–104; RESP 17–20; TEMP 36.1–36.6; O2SAT 92–100; BMI 41.8
[2024-08-15] MEDS: ALBUTEROL/IPRATROPIUM (Duoneb) RT SOL 3 ML NEBU INH ×6 (02:03→23:24)
[2024-08-15] MEDS: traMADol HCL 50 MG TABLET PO (03:54)
[2024-08-15] MEDS: LACTULOSE SYRUP 20 GM/30 ML UDC 15 GM PO (03:54)
[2024-08-15] MEDS: ONDANSETRON INJ 2 MG/ML INJ 2 ML 4 MG IV ×3 (05:07→21:30)
--- NOTE | 2024-08-15 06:05 | XR_ITS ---
Examination: Abdomen AP single view Technique: AP portable supine abdomen, single view Exam date and time: August 15, 2024 at 0511 hours INDICATIONS: Distention abdominal pain and nausea today. FINDINGS: Large amounts of air and stool throughout the colon No free air Moderate osteopenia IMPRESSION: Large amounts of air and stool throughout the colon
[2024-08-15] MEDS: bisacodyL 10 MG SUPP PR (06:21)
[2024-08-15 06:29] LABS: Magnesium 2.8 mg/dL (1.6-2.6)
--- NOTE | 2024-08-15 06:29 | PC.NURSE ---
Dr. Castle notified of patient complaining of extreme nausea and dry heaving with very distended abdomen and abdominal pain 02/08. New orders received for KUB and rectal suppository. Will continue to closely monitor patient.
--- NOTE | 2024-08-15 09:05 | XR_ITS ---
Examination: AP chest single view Technique one AP portable upright chest single view Exam date and time: August 15, 2024 0817 hours INDICATIONS: Post orogastric tube placement FINDINGS: Orogastric tube in the stomach satisfactory position Mild bibasilar opacity consistent with pneumonia Mild vascular congestion IMPRESSION: Orogastric tube in the stomach satisfactory position
--- NOTE | 2024-08-15 09:31 | XR_ITS ---
Examination: CT abdomen and pelvis without contrast. Coronal 3-D reconstructions. Sagittal 2-D reconstructions. Date and time of exam:August 15, 2024 1131 hours INDICATIONS: Onset mid abdominal pain today CTDI: vol (mGy): 15.3 DLP: (mGycm): 865 Technique: Axial images of the abdomen have been obtained, 3 mm slice thickness Intravenous contrast material has not been administered. Low dose protocols were performed. One or more of the following dose reduction techniques were used; automated exposure control, adjustment of the mA and/or KV according to patient size, use of iterative reconstruction technique. Findings: Bibasilar pneumonia No focal liver or splenic lesions Suspicious for gallbladder sludge No pancreatic or adrenal mass. Mild right renal parenchymal scar formation No renal or ureteral calculi, no hydronephrosis 21 mm umbilical hernia Large amounts of stool throughout the entire colon Atrophic uterus No pelvic mass Moderate osteopenia IMPRESSION: Suspicious for gallbladder sludge, recommend hepatobiliary sonography follow-up Large amounts of stool throughout the colon 21 mm fat-containing umbilical hernia
[2024-08-15] MEDS: cefTRIAXone 1,000 MG in SODIUM CHLORIDE 0.9% (Popper) 50 ML 100 MG IV (09:38)
[2024-08-15] MEDS: BUMETANIDE INJ 0.25 MG/ML VIAL 4 ML 1 MG IVP (09:39)
[2024-08-15] MEDS: MethylPREDNISolone SOD SUCC 62.5 MG/ML 2ML VIAL IVP (09:39)
[2024-08-15 10:21] LABS: Alanine Aminotransferase 33 U/L (10-49); Albumin, Serum 4.3 gm/dL (3.4-4.8); Albumin/Globulin Ratio 1.7 (1.2-2.2); Alkaline Phosphatase 76 U/L (46-116); Anion Gap 7 (7-16); Aspartate Amino Transferase 24 U/L (0-34); BUN/Creatinine Ratio 14 Ratio (12-20); Bilirubin,Total 0.4 mg/dL (0.3-1.2); Blood Urea Nitrogen 14 mg/dL (9-23); Calcium 9.6 mg/dL (8.3-10.6); Calcium (Corrected) 9.6 mg/dL (8.5-10.1); Carbon Dioxide 33.3 mMol/L (20.0-31.0); Chloride 98 mMol/L (98-107); Estimated Creatinine Clearance 56.9 mL/min (>60); Globulin 2.6 gm/dL (2.3-3.5); Glucose 121 mg/dL (74-106); Osmolality,Calculated 277 (275-295); Potassium 3.8 mMol/L (3.4-5.1); Sodium 138 mMol/L (136-145); Total Protein 6.9 gm/dL (5.7-8.2); eGFR > 60 See Note
--- NOTE | 2024-08-15 10:22 | PD.RESPRO ---
Documentation for date of: 08/15/24 Subjective Subjective Interval history: 69-year-old female with significant past medical history of obesity, hypertension, hypothyroidism CAD, COPD on 2 to 3 L oxygen since 5 years, CHF presented to the hospital with chief complaints of shortness of breath since 3 days. Patient was apparently normal 3 weeks ago, had similar complaints and came to ED on 07/22/2024 and was discharged to home with steroids and antibiotics. Patient felt normal during the treatment with steroids and antibiotics but later again she started developing shortness of breath. At baseline, patient is able to do her routine daily activities and ambulate around the house. But since last 3 days worsening shortness of breath and increased her oxygen supply to 4 L. Also complaining of worsening cough associated with mild sputum. Denies fever, nausea, vomitings, abdominal distention, burning micturition. Noticed bilateral pedal edema and patient endorsed that she is on Bumex 1 Mg but still having swelling both lower extremities since 3 months. ED Course: -Initial vitals were Blood pressure 140/84 mmHg, pulse rate 80 bpm, respiratory rate 20/min, temperature 97.7 ?F, SpO2 97% with 3 L oxygen -Labs significant for WBC 6.2, Hb 12.1, platelets 226, sodium 141, potassium 4.1, chloride 102, bicarb 32.5, BUN 9, creatinine 0.9, glucose 126 -Chest x-ray showed bilateral moderate vascular congestion. Chest CTA is negative for pulmonary embolism. EKG showed normal sinus rhythm -In the ED, patient was given DuoNeb inhalation, Bumex, hydralazine, steroids -Patient was admitted for Acute on chronic hypoxic respiratory failure secondary to COPD exacerbation. 08/13/2024 Patient was seen and examined bedside. Patient reported that last night she had severe cough for which she received promethazine and dextromethorphan syrup Today patient stated that she is feeling well and able to ambulate around the room Vitals are stable Planning to discharge tomorrow 08/14/2024Patient currently seen in medical floor resting comfortably. Denies any chest pain. Does have significant cough still and wheezing. Complaining of constipation. Lactulose given. Edema markedly improved. Labs/medications reviewed. 08/15/2024 Patient was seen and examined bedside. Complaining of severe constipation despite rectal suppositories and laxatives X-ray abdomen was ordered which showed large amount of stools. Ordered CT abdomen to rule out obstruction-showed large amount of stool throughout the colon NG tube was placed. GoLytely was ordered. Will monitor for Bowel movement Exam Vital Signs Temp Pulse Resp BP Pulse Ox O2 Del Method O2 Flow Rate 97.8 F 86 17 152/83 H 93 L Nasal Cannula 3 08/15/24 08:00 08/15/24 09:39 08/15/24 08:00 08/15/24 09:39 08/15/24 08:00 08/15/24 08:00 08/15/24 08:00 Narrative Exam General: Awake. HEENT: Normocephalic, atraumatic, mucous membranes moist. Heart: Regular rate and rhythm, no murmurs. Lungs: Clear to auscultation with no wheezing or crackles. Abdomen: Soft, mildly distended, mild tenderness, positive bowel sounds. ?No guarding or rebound tenderness. Neurologic: Alert and oriented x3, no gross neurological deficit, and patient able to move all 4 extremities. Extremities: B/l 2+ Pedal edema Skin: No rash or ecchymoses. Objective Labs 08/16/24 04:30 08/16/24 04:30 Labs: Laboratory Results - last 24 hr 08/15/24 05:11 Magnesium 2.8 H Quality Measures Quality Measures none Advance care planning discussed with:: patient Assessment & Plan Assessment Current Active Medications: Generic Name Dose Route Start Last Admin Trade Name Freq PRN Reason Stop Dose Admin Acetaminophen 650 mg 08/12/24 15:45 08/12/24 19:10 Acetaminophen 325 Mg Tablet PO 09/10/24 17:47 650 mg Q6H PRN Administration Fever >100.3 or pain 1-3 Albuterol/Ipratropium 3 ml 08/12/24 07:00 08/15/24 06:43 Albuterol/Ipratropium (Duoneb) Rt Ginger 3 Ml Nebu INH 09/11/24 06:59 3 ml Q4HRRT STEVE Administration Albuterol/Ipratropium 3 ml 08/12/24 05:50 Albuterol/Ipratropium (Duoneb) Rt Ginger 3 Ml Nebu INH 09/11/24 05:49 Q2HR PRN SHORTNESS OF BREATH OR WHEEZE Azithromycin 500 mg 08/11/24 18:00 08/15/24 08:47 Azithromycin 250 Mg Tablet PO 08/18/24 17:59 Not Given QDAY STEVE Bumetanide 1 mg 08/11/24 18:00 08/15/24 09:39 Bumetanide Inj 0.25 Mg/Ml Vial 4 Ml IVP 09/10/24 17:59 1 mg QDAY STEVE Administration Enoxaparin Sodium 40 mg 08/12/24 09:00 08/15/24 09:37 Enoxaparin Sod Inj 40 Mg/0.4 Ml Syringe SC 08/26/24 08:59 Not Given QDAY STEVE Ceftriaxone Sodium 1,000 mg/ 50 mls @ 100 mls/hr 08/12/24 14:17 08/15/24 09:38 Sodium Chloride IV 08/19/24 14:16 100 mls/hr QDAY STEVE Administration Lactulose 15 gm 08/14/24 15:56 08/15/24 03:54 Lactulose Syrup 20 Gm/30 Ml Udc PO 09/13/24 15:55 15 gm Q6H PRN Administration constipation Protocol Levothyroxine Sodium 50 mcg 08/13/24 06:00 08/15/24 08:47 Levothyroxine Sodium 25 Mcg Tablet PO 09/12/24 05:59 Not Given ACBR STEVE Losartan Potassium 50 mg 08/11/24 21:00 08/15/24 08:48 Losartan Potassium 25 Mg Tablet PO 09/10/24 20:59 Not Given BID STEVE Magnesium Hydroxide 30 ml 08/11/24 17:48 08/14/24 20:07 Milk Of Magnesia Susp 30 Ml Udc PO 09/10/24 17:47 30 ml QDAY PRN Administration CONSTIPATION Protocol Methylprednisolone Sodium Succinate 62.5 mg 08/12/24 14:30 08/15/24 09:39 Methylprednisolone Sod Succ 62.5 Mg/Ml 2ml Vial IVP 08/19/24 14:29 62.5 mg DAILY STEVE Administration Ondansetron HCl 4 mg 08/11/24 17:48 08/15/24 05:07 Ondansetron Inj 2 Mg/Ml Inj 2 Ml IV 09/10/24 17:47 4 mg Q6H PRN Administration NAUSEA OR VOMITING Protocol Pantoprazole Sodium 40 mg 08/12/24 09:00 08/15/24 08:48 Pantoprazole 40 Mg Tablet PO 09/11/24 08:59 Not Given QDAY STEVE Promethazine HCl/Dextromethorphan 5 ml 08/12/24 22:54 08/14/24 17:33 Promethazine/Dm Syrup 5 Ml Dose PO 09/11/24 22:41 5 ml Q4HR PRN Administration COUGH Protocol Tramadol HCl 50 mg 08/12/24 22:05 08/15/24 03:54 Tramadol Hcl 50 Mg Tablet PO 08/17/24 22:04 50 mg Q6HR PRN Administration PAIN SCALE 4-10(Mod-Sev Plan A 69-year-old female with significant past medical history of obesity, hypertension, hypothyroidism CAD, COPD on 2 to 3 L oxygen since 5 years, CHF presented to the hospital with chief complaints of shortness of breath since 3 days and admitted for Acute on chronic hypoxic respiratory failure secondary to Copd exacerbation # Acute on chronic hypoxic respiratory failure, resolved # Secondary to COPD exacerbation and CHF exacerbation -Presented to the hospital with complaints of worsening shortness of breath, wheezing, cough and pedal edema. -Denies fever, nausea, vomitings, palpitations, chest pain, diarrhea. -Denies any complaints with medications and change in her diet -Patient is using 2 L oxygen at baseline unable to do her routine daily activities -Labs significant for WBC 6.2, Hb 12.1, platelets 226, sodium 141, potassium 4.1, chloride 102, bicarb 32.5, BUN 9, creatinine 0.9, glucose 126 -Chest x-ray showed bilateral moderate vascular congestion. Chest CTA is negative for pulmonary embolism. EKG showed normal sinus rhythm -Influenza, COVID was ordered - negative Plan -Echocardiogram was ordered -Started on IV Bumex 1 Mg IV daily -Started on DuoNebs every 8 hourly -Started on IV methylprednisone 62.5 Mg IV daily -Started on azithromycin and ceftriaxone -Started on promethazine and Dextromethorphan # Severe constipation -Patient did not have bowel movement since the time of admission -Patient received oral laxatives, rectal suppositories but did not have any bowel movement -X-ray abdomen showed stools with distended colon -CT abdomen/pelvis ordered and showed large amounts of stool throughout the colon -NG tube was placed for decompression and GoLytely was ordered -Will monitor for bowel movement #Hypertension -Patient is using losartan 50 Mg p.o. twice daily at home Plan -Will resume her home medication -will continue to monitor # Hypothyroidism Patient is on 25 mcg p.o. daily Plan -TSH is within normal limits -Resumed her home medication Hospital Maintenance: Dispo: medsurg DVT ppx: lovenox GI ppx: protonox Diet : N.p.o. for now IV lines: peripheral Code status: Full code Patient plan of care was discussed with the attending physician, Dr. Tin Carcamo, PGY1 Attending Provider Attestation/Addendum Patient seen and examined with resident physician Dr. Martins. Note reviewed, agree with findings and recommendations. Patient still having wheezing and cough with shortness of breath. Changed to IV steroids, breathing treatments [id number], antibiotics added. Currently on 3 L oxygen. Added promethazine with DM cough syrup. Physical therapy, ambulate. Patient complaining of significant abdominal pain and gaseous distention. KUB showed gas and stool. CT scan did not show any acute pathology except gas and stool. GoLytely ordered. NG tube was inserted. In the evening patient started having more abdominal discomfort. Had to start GoLytely and place NG for intermittent suction.
[2024-08-15 11:49] LABS: Basophils % (Auto) 0 % (0-2.5); Eosinophils # (Auto) 0.2 Thou/mm3 (0.0-0.5); Eosinophils % (Auto) 2 % (0-10); Hematocrit 39.7 % (36.0-46.0); Hemoglobin 12.6 g/dL (12.0-16.0); Immature Granulocytes % (Auto) 1 % (0-0); Lymphocytes # (Auto) 1.1 Thou/mm3 (1.0-4.8); Lymphocytes % (Auto) 8 % (10-50); Mean Corpuscular HGB Conc 31.7 g/dl (31.0-37.0); Mean Corpuscular Hemoglobin 31.3 pg (25.0-35.0); Mean Corpuscular Volume 99 fL (80-100); Monocytes % (Auto) 7 % (0-12); Neutrophils % (Auto) 82 % (37-80); Nucleated Red Blood Cell % 0 /100 WBC (0); Platelet Count 279 Thou/mm3 (140-440); Red Blood Count 4.03 Miln/mm3 (4.00-5.20); White Blood Count 13.4 Thou/mm3 (3.6-11.0)
--- NOTE | 2024-08-15 13:21 | PC.SS ---
BUSINESS TECHNOLOGY PROFESSOR conducted bedside contact with the patient conduct initial assessment and to discuss discharge planning.? Patient confirmed demographic information.? Patient resides at home with partner, Steve Lubin .? Patient does not utilize DME to assist with ambulation.? Patient utilizes home oxygen.? Patient does not require assistance with the completion of ADL?s.? Patient?s surrogate medical decision maker is partner, Steve Lubin.? Patient?s PCP is Dr. Castle.? Patient does not participate with dialysis.? Patient?s construction equipment mechanic helper is Dr. Chau.? Patient utilizes [facility] for medication services.? Plan is for the patient to return home at the time of discharge.? Family will provide transportation on behalf of the patient. ?No discharge needs identified by the patient.? No further intervention required at this time, community mental health social worker will be available to address any further concerns.? Next of Kin: Steve Lubin D/C Plan: Home
[2024-08-15] MEDS: NA SU/NAHCO3/KC/PEG (Golytely) 4,000 ML BTL 4000 ML PO (16:08)
--- NOTE | 2024-08-15 21:58 | PC.LAC ---
Dr. Castle called regarding patient stating, I just don't feel right. Patient abdomen distended and stated that she is very nauseous a starting to dry heave. stated to pause Golytely and to hold Losartan after letting her know recent vitals signs. Will continue to closely monitor.
[2024-08-16] VITALS (15 sets, daily range): BP systolic 108–143; BP diastolic 65–85; PULSE 66–106; RESP 16–24; TEMP 36–36.7; O2SAT 90–100
[2024-08-16] MEDS: ALBUTEROL/IPRATROPIUM (Duoneb) RT SOL 3 ML NEBU INH ×6 (03:24→23:37)
[2024-08-16] MEDS: LEVOTHYROXINE SODIUM 25 MCG TABLET 50 MCG PO (05:51)
[2024-08-16] MEDS: PROMETHAZINE/DM SYRUP 5 ML DOSE PO (05:57)
[2024-08-16 06:05] LABS: Basophils % (Auto) 0 % (0-2.5); Eosinophils % (Auto) 0 % (0-10); Hematocrit 39.7 % (36.0-46.0); Hemoglobin 12.6 g/dL (12.0-16.0); Immature Granulocytes % (Auto) 1 % (0-0); Immature Granulocytes Auto 0.06 Thou/mm3 (0.00-0.00); Lymphocytes # (Auto) 1.3 Thou/mm3 (1.0-4.8); Lymphocytes % (Auto) 13 % (10-50); Mean Corpuscular HGB Conc 31.7 g/dl (31.0-37.0); Mean Corpuscular Hemoglobin 31.2 pg (25.0-35.0); Mean Corpuscular Volume 98 fL (80-100); Monocytes # (Auto) 0.8 Thou/mm3 (0.0-0.8); Monocytes % (Auto) 8 % (0-12); Neutrophils # (Auto) 7.5 Thou/mm3 (1.8-7.7); Neutrophils % (Auto) 78 % (37-80); Nucleated Red Blood Cell % 0 /100 WBC (0); Platelet Count 273 Thou/mm3 (140-440); RDW Standard Deviation 47.6 fL (36.4-46.3); Red Blood Count 4.04 Miln/mm3 (4.00-5.20); White Blood Count 9.7 Thou/mm3 (3.6-11.0)
[2024-08-16 06:39] LABS: Albumin, Serum 4.3 gm/dL (3.4-4.8); Anion Gap 9 (7-16); BUN/Creatinine Ratio 14 Ratio (12-20); Blood Urea Nitrogen 14 mg/dL (9-23); Calcium 9.4 mg/dL (8.3-10.6); Calcium (Corrected) 9.4 mg/dL (8.5-10.1); Carbon Dioxide 37.5 mMol/L (20.0-31.0); Chloride 95 mMol/L (98-107); Estimated Creatinine Clearance 56.9 mL/min (>60); Glucose 95 mg/dL (74-106); Osmolality,Calculated 281 (275-295); Phosphorous 3.2 mg/dL (2.4-5.1); Potassium 4.4 mMol/L (3.4-5.1); Sodium 141 mMol/L (136-145); eGFR > 60 See Note
[2024-08-16] MEDS: NA SU/NAHCO3/KC/PEG (Golytely) 4,000 ML BTL 4000 ML PO (09:19)
[2024-08-16] MEDS: AZITHROMYCIN 250 MG TABLET 500 MG PO (09:20)
[2024-08-16] MEDS: MethylPREDNISolone SOD SUCC 62.5 MG/ML 2ML VIAL IVP (09:20)
[2024-08-16] MEDS: cefTRIAXone 1,000 MG in SODIUM CHLORIDE 0.9% (Popper) 50 ML 100 MG IV (09:20)
[2024-08-16] MEDS: LOSARTAN POTASSIUM 25 MG TABLET 50 MG PO ×2 (09:21→20:51)
[2024-08-16] MEDS: PANTOPRAZOLE 40 MG TABLET PO (09:28)
[2024-08-16] MEDS: BUMETANIDE INJ 0.25 MG/ML VIAL 4 ML 1 MG IVP (09:28)
[2024-08-16] MEDS: ACETAMINOPHEN 325 MG TABLET 650 MG PO (09:28)
--- NOTE | 2024-08-16 09:32 | PD.RESPRO ---
Documentation for date of: 08/16/24 Subjective Subjective Interval history: 69-year-old female with significant past medical history of obesity, hypertension, hypothyroidism CAD, COPD on 2 to 3 L oxygen since 5 years, CHF presented to the hospital with chief complaints of shortness of breath since 3 days. Patient was apparently normal 3 weeks ago, had similar complaints and came to ED on 07/22/2024 and was discharged to home with steroids and antibiotics. Patient felt normal during the treatment with steroids and antibiotics but later again she started developing shortness of breath. At baseline, patient is able to do her routine daily activities and ambulate around the house. But since last 3 days worsening shortness of breath and increased her oxygen supply to 4 L. Also complaining of worsening cough associated with mild sputum. Denies fever, nausea, vomitings, abdominal distention, burning micturition. Noticed bilateral pedal edema and patient endorsed that she is on Bumex 1 Mg but still having swelling both lower extremities since 3 months. ED Course: -Initial vitals were Blood pressure 140/84 mmHg, pulse rate 80 bpm, respiratory rate 20/min, temperature 97.7 ?F, SpO2 97% with 3 L oxygen -Labs significant for WBC 6.2, Hb 12.1, platelets 226, sodium 141, potassium 4.1, chloride 102, bicarb 32.5, BUN 9, creatinine 0.9, glucose 126 -Chest x-ray showed bilateral moderate vascular congestion. Chest CTA is negative for pulmonary embolism. EKG showed normal sinus rhythm -In the ED, patient was given DuoNeb inhalation, Bumex, hydralazine, steroids -Patient was admitted for Acute on chronic hypoxic respiratory failure secondary to COPD exacerbation. 08/16/2024 Patient is seen and examined bedside Patient still complaining of abdominal pain, distention and did not have any bowel movement Did not get GoLytely yesterday due to significant nausea, abdominal distention and pain, restarted it Pending echocardiogram. Dr. Rush was consulted for persistent abdominal discomfort Exam Vital Signs Temp Pulse Resp BP Pulse Ox O2 Del Method O2 Flow Rate 97.1 F 103 H 16 113/80 92 L Room Air 2 08/16/24 08:00 08/16/24 09:28 08/16/24 08:00 08/16/24 09:28 08/16/24 08:00 08/16/24 08:00 08/16/24 07:37 Narrative Exam General: Awake. Seems uncomfortable from abdominal distention HEENT: Normocephalic, atraumatic, mucous membranes moist. Heart: Regular rate and rhythm, no murmurs. Lungs: Clear to auscultation with no wheezing or crackles. Abdomen: Soft, ++ distended, mild tenderness, positive bowel sounds. ?No guarding or rebound tenderness. Neurologic: Alert and oriented x3, no gross neurological deficit, and patient able to move all 4 extremities. Extremities: B/l 2+ Pedal edema Skin: No rash or ecchymoses. Objective Labs 08/17/24 05:37 08/16/24 04:30 Labs: Laboratory Results - last 24 hr 08/15/24 08/16/24 09:32 04:30 WBC 13.4 H D 9.7 RBC 4.03 4.04 Hgb 12.6 12.6 Hct 39.7 39.7 MCV 99 98 MCH 31.3 31.2 MCHC 31.7 31.7 RDW Std Deviation 47.0 H 47.6 H Plt Count 279 273 Neut % (Auto) 82 H 78 Lymph % (Auto) 8 L 13 [place] % (Auto) 7 8 Eos % (Auto) 2 0 Baso % (Auto) 0 0 Neut # (Auto) 11.0 H 7.5 Lymph # (Auto) 1.1 1.3 [place] # (Auto) 1.0 H 0.8 Eos # (Auto) 0.2 0.0 Baso # (Auto) 0.0 0.0 Immature Gran # (Auto) 0.10 H 0.06 H Absolute Nucleated RBC 0.00 0.00 Immature Gran % 1 H 1 H Nucleated RBC % 0 0 Sodium 138 141 Potassium 3.8 D 4.4 D Chloride 98 95 L Carbon Dioxide 33.3 H 37.5 H Anion Gap 7 9 BUN 14 14 Creatinine 1.0 1.0 Estim Creat Clear Calc 56.9 L 56.9 L eGFR > 60 > 60 BUN/Creatinine Ratio 14 14 Glucose 121 H 95 Calculated Osmolality 277 281 Calcium 9.6 9.4 Corrected Calcium 9.6 9.4 Phosphorus 3.2 Total Bilirubin 0.4 AST 24 ALT 33 Alkaline Phosphatase 76 Total Protein 6.9 Albumin 4.3 4.3 Globulin 2.6 Albumin/Globulin Ratio 1.7 Quality Measures Quality Measures none Advance care planning discussed with:: patient Assessment & Plan Assessment Current Active Medications: Generic Name Dose Route Start Last Admin Trade Name Freq PRN Reason Stop Dose Admin Acetaminophen 650 mg 08/12/24 15:45 08/16/24 09:28 Acetaminophen 325 Mg Tablet PO 09/10/24 17:47 650 mg Q6H PRN Administration Fever >100.3 or pain 1-3 Albuterol/Ipratropium 3 ml 08/12/24 07:00 08/16/24 07:36 Albuterol/Ipratropium (Duoneb) Rt Ginger 3 Ml Nebu INH 09/11/24 06:59 3 ml Q4HRRT STEVE Administration Albuterol/Ipratropium 3 ml 08/12/24 05:50 Albuterol/Ipratropium (Duoneb) Rt Ginger 3 Ml Nebu INH 09/11/24 05:49 Q2HR PRN SHORTNESS OF BREATH OR WHEEZE Azithromycin 500 mg 08/11/24 18:00 08/16/24 09:20 Azithromycin 250 Mg Tablet PO 08/18/24 17:59 500 mg QDAY STEVE Administration Bumetanide 1 mg 08/11/24 18:00 08/16/24 09:28 Bumetanide Inj 0.25 Mg/Ml Vial 4 Ml IVP 09/10/24 17:59 1 mg QDAY STEVE Administration Enoxaparin Sodium 40 mg 08/12/24 09:00 08/16/24 09:21 Enoxaparin Sod Inj 40 Mg/0.4 Ml Syringe SC 08/26/24 08:59 Not Given QDAY STEVE Ceftriaxone Sodium 1,000 mg/ 50 mls @ 100 mls/hr 08/12/24 14:17 08/16/24 09:20 Sodium Chloride IV 08/19/24 14:16 100 mls/hr QDAY STEVE Administration Lactulose 15 gm 08/14/24 15:56 08/15/24 03:54 Lactulose Syrup 20 Gm/30 Ml Udc PO 09/13/24 15:55 15 gm Q6H PRN Administration constipation Protocol Levothyroxine Sodium 50 mcg 08/13/24 06:00 08/16/24 05:51 Levothyroxine Sodium 25 Mcg Tablet PO 09/12/24 05:59 50 mcg ACBR STEVE Administration Losartan Potassium 50 mg 08/11/24 21:00 08/16/24 09:21 Losartan Potassium 25 Mg Tablet PO 09/10/24 20:59 50 mg BID STEVE Administration Magnesium Hydroxide 30 ml 08/11/24 17:48 08/14/24 20:07 Milk Of Magnesia Susp 30 Ml Udc PO 09/10/24 17:47 30 ml QDAY PRN Administration CONSTIPATION Protocol Methylprednisolone Sodium Succinate 62.5 mg 08/12/24 14:30 08/16/24 09:20 Methylprednisolone Sod Succ 62.5 Mg/Ml 2ml Vial IVP 08/19/24 14:29 62.5 mg DAILY STEVE Administration Ondansetron HCl 4 mg 08/11/24 17:48 08/15/24 21:30 Ondansetron Inj 2 Mg/Ml Inj 2 Ml IV 09/10/24 17:47 4 mg Q6H PRN Administration NAUSEA OR VOMITING Protocol Pantoprazole Sodium 40 mg 08/12/24 09:00 08/16/24 09:28 Pantoprazole 40 Mg Tablet PO 09/11/24 08:59 40 mg QDAY STEVE Administration Promethazine HCl/Dextromethorphan 5 ml 08/12/24 22:54 08/16/24 05:57 Promethazine/Dm Syrup 5 Ml Dose PO 09/11/24 22:41 5 ml Q4HR PRN Administration COUGH Protocol Tramadol HCl 50 mg 08/12/24 22:05 08/15/24 03:54 Tramadol Hcl 50 Mg Tablet PO 08/17/24 22:04 50 mg Q6HR PRN Administration PAIN SCALE 4-10(Mod-Sev Plan A 69-year-old female with significant past medical history of obesity, hypertension, hypothyroidism CAD, COPD on 2 to 3 L oxygen since 5 years, CHF presented to the hospital with chief complaints of shortness of breath since 3 days and admitted for Acute on chronic hypoxic respiratory failure secondary to Copd exacerbation # Acute on chronic hypoxic respiratory failure, resolved # Secondary to COPD exacerbation and CHF exacerbation -Presented to the hospital with complaints of worsening shortness of breath, wheezing, cough and pedal edema. -Denies fever, nausea, vomitings, palpitations, chest pain, diarrhea. -Denies any complaints with medications and change in her diet -Patient is using 2 L oxygen at baseline unable to do her routine daily activities -Labs significant for WBC 6.2, Hb 12.1, platelets 226, sodium 141, potassium 4.1, chloride 102, bicarb 32.5, BUN 9, creatinine 0.9, glucose 126 -Chest x-ray showed bilateral moderate vascular congestion. Chest CTA is negative for pulmonary embolism. EKG showed normal sinus rhythm -Influenza, COVID was ordered - negative Plan -Echocardiogram was ordered, pending -Started on IV Bumex 1 Mg IV daily -Started on DuoNebs every 8 hourly -Started on IV methylprednisone 62.5 Mg IV daily -Started on azithromycin and ceftriaxone -Started on promethazine and Dextromethorphan # Severe constipation -Patient did not have bowel movement since the time of admission -Patient received oral laxatives, rectal suppositories but did not have any bowel movement -X-ray abdomen showed stools with distended colon -CT abdomen/pelvis ordered and showed large amounts of stool throughout the colon -NG tube was placed for decompression and GoLytely was ordered -Will monitor for bowel movement #Hypertension -Patient is using losartan 50 Mg p.o. twice daily at home Plan -Will resume her home medication -will continue to monitor # Hypothyroidism Patient is on 25 mcg p.o. daily Plan -TSH is within normal limits -Resumed her home medication Hospital Maintenance: Dispo: medsurg DVT ppx: lovenox GI ppx: protonox Diet : Full liquid diet IV lines: peripheral Code status: Full code Patient plan of care was discussed with the attending physician, Dr. Tin Carcamo, PGY1 Attending Provider Attestation/Addendum Patient seen and examined with resident physician Dr. Martins. Note reviewed, agree with findings and recommendations. Patient still having wheezing and cough with shortness of breath. Changed to IV steroids, breathing treatments [id number], antibiotics added. Currently on 3 L oxygen. Added promethazine with DM cough syrup. Physical therapy, ambulate. Patient complaining of significant abdominal pain and gaseous distention. KUB showed gas and stool. CT scan did not show any acute pathology except gas and stool. GoLytely ordered. NG tube was inserted. Will try to resume GoLytely and hold suction. Medications given. Dr. uRsh was consulted. If no improvement in stool-will add soapsuds enema
--- NOTE | 2024-08-16 19:12 | PD.IMCONS ---
HPI Data of Consult Requesting Physician: Ethan Castle MD Primary Care Provider: Ethan Castle MD Consult Narrative Reason for consult: Pain abdomen, abdominal distention. Abnormal CTAP History of present illness: 69 years old female who was admitted on 08/11/2024 for progressive shortness of breath I been consulted for abdominal pain bloating distention and discomfort CT scan of the abdomen pelvis done without contrast showed gallbladder sludge stool throughout the colon as well as 21 mm umbilical hernia Patient does have a history of COPD on 2 to 3 L nasal cannula obesity syndrome hypertension hypothyroidism coronary artery disease and congestive heart failure cc:: cc: Ethan Castle MD Review of Systems Review of Systems Systems Reviewed: All systems reviewed, normal except as documented Past Medical History Surgical History OTHER SURGICAL HX: As in the history of present illness Meds Home Medications and Allergies Home Medications ?Medication ?Instructions ?Recorded ?Confirmed ?Type furosemide 20 mg tablet 20 mg PO QDAY 09/04/21 09/24/21 History levothyroxine 50 mcg tablet 50 mcg PO QDAY 09/04/21 08/11/24 History potassium chloride 20 mEq 20 meq PO DAILY 09/04/21 08/11/24 History tablet,extended release tiotropium 2.5 mcg-olodaterol 2.5 2 puff inhalation QDAY 09/24/21 09/24/21 History mcg/actuation mist for inhalation (Stiolto Respimat) bumetanide 2 mg tablet 2 mg PO QDAY 08/11/24 08/11/24 History losartan 50 mg tablet 25 mg PO DAILY 08/11/24 08/11/24 History Allergies Allergy/AdvReac Type Severity Reaction Status Date / Time iodine Allergy NAUSEA, Verified 08/10/24 11:57 VOMITTING, CHILLS, DIARRHEA, FEVER Exam Vital Signs Temp Pulse Resp BP Pulse Ox O2 Del Method O2 Flow Rate 97.7 F 84 18 139/83 H 100 Nasal Cannula 2 08/16/24 16:00 08/16/24 18:57 08/16/24 18:57 08/16/24 16:00 08/16/24 18:57 08/16/24 16:00 08/16/24 18:57 Constitutional Comments: Chronically ill-appearing Routine Respiratory Exam Comments: Scattered rhonchi Routine Abdominal Exam Comments: Tender distended positive bowel sounds Results Labs 08/17/24 05:37 08/17/24 05:37 Labs: Short CBC 08/16/24 Range/Units 04:30 WBC 9.7 (3.6-11.0) Thou/mm3 Hgb 12.6 (12.0-16.0) g/dL Hct 39.7 (36.0-46.0) % Plt Count 273 (140-440) Thou/mm3 BMP 08/16/24 04:30 Sodium 141 Potassium 4.4 D Chloride 95 L Carbon Dioxide 37.5 H BUN 14 Creatinine 1.0 Glucose 95 Calcium 9.4 Liver Function 08/16/24 Range/Units 04:30 Albumin 4.3 (3.4-4.8) gm/dL Assessment and Plan Additional Assessment & Plan Additional Plan: # Patient's current abdominal pain with distention is most likely due to stool impaction as evidenced on the CT AP Agree with giving her GoLytely and see what the results are going to be Once her stool clears out I think her abdominal pain is going get much better We will closely monitor her Also give her 2 tablets of Dulcolax right in the beginning of giving her GoLytely which have ordered Will avoid any invasive GI workup if possible because of her multiple comorbidities at the moment Other medical problems include # Acute exacerbation of the COPD # Systolic congestive heart failure # Hypothyroidism # Essential hypertension Thank you very much for the opportunity to participate in the care of this patient
[2024-08-16] MEDS: bisacodyL 5 MG TABEC PO (20:50)
[2024-08-17] VITALS (15 sets, daily range): BP systolic 111–200; BP diastolic 69–152; PULSE 74–110; RESP 18–24; TEMP 36.2–37.1; O2SAT 92–100
--- NOTE | 2024-08-17 02:48 | EKG_ITS ---
[facility] Test Date: 2024-08-17 Pat Name: SHIRA MENENDEZ [facility] Female Director Of Institutional Research: ECOBN1 : 1955 Requested By: Ash Witt Order Number: [id number] Reading MD: Ash Witt Measurements Intervals [place] Rate: 85 P: [place]: QRS: 22 QRSD: 70 T: 27 QT: 321 QTc: 383 Interpretive Statements ATRIAL FIBRILLATION MODERATE ST DEPRESSION Compared to ECG 08/10/2024 12:44:25 ST (T wave) deviation now present Sinus rhythm no longer present Sinus arrhythmia no longer present /[id number]
--- NOTE | 2024-08-17 02:49 | XR_ITS ---
Examination: Abdomen AP single view Technique: AP portable supine abdomen, single view Exam date and time: August 17, 2024 0158 hrs. Comparison August 15, 2024 Indications: Constipation this week Findings: Orogastric tube in the stomach satisfactory position Moderate air and stool throughout the colon No obstruction Prominent osteopenia Impression: Moderate air and stool throughout the colon
[2024-08-17] MEDS: ONDANSETRON INJ 2 MG/ML INJ 2 ML 4 MG IV (03:05)
--- NOTE | 2024-08-17 03:23 | PD.RESEVENT ---
Documentation for date of: 08/17/24 Event Note Event Note: Around 0240, rapid response was called for patient as there was concern for blood pressure being 200 SBP, and experiencing 10/10 abdominal pain. Pt denied having any CP or SOB, however has been complaining of diffuse abd pain. She says she still has not had a bowel movement. EKG was ordered for patient, in addition to KUB as well. Pt was given Toradol 15 mg x1. Physical examination did show some guarding in the abdomen, however no significant distension was appreciated, and bowel sounds were heard. NG tube was put on continuous suction as well. BP was remeasured for the patient and it did come down to 160 SBP. Will reassess pt afterwards. Patient seen and care discussed with my attending physician, Dr. Lizet Hewitt, PGY-1
[2024-08-17] MEDS: KETOROLAC INJ 30 MG/ML VIAL 15 MG IVP (03:24)
[2024-08-17] MEDS: ALBUTEROL/IPRATROPIUM (Duoneb) RT SOL 3 ML NEBU INH ×6 (03:26→22:28)
--- NOTE | 2024-08-17 04:56 | PC.NURSE ---
P[employer]ER [employer]ER called to pt's room. Pt in distress complaining of increased abd distention and abd pain. Pt was put in low intermittent suction, Pt is NPO.
[2024-08-17 06:21] LABS: Basophils % (Auto) 0 % (0-2.5); Eosinophils # (Auto) 0.1 Thou/mm3 (0.0-0.5); Eosinophils % (Auto) 1 % (0-10); Hematocrit 37.3 % (36.0-46.0); Hemoglobin 12.1 g/dL (12.0-16.0); Immature Granulocytes % (Auto) 1 % (0-0); Lymphocytes # (Auto) 1.6 Thou/mm3 (1.0-4.8); Lymphocytes % (Auto) 16 % (10-50); Mean Corpuscular HGB Conc 32.4 g/dl (31.0-37.0); Mean Corpuscular Hemoglobin 31.7 pg (25.0-35.0); Mean Corpuscular Volume 98 fL (80-100); Monocytes # (Auto) 0.8 Thou/mm3 (0.0-0.8); Monocytes % (Auto) 9 % (0-12); Neutrophils # (Auto) 7.3 Thou/mm3 (1.8-7.7); Neutrophils % (Auto) 74 % (37-80); Nucleated Red Blood Cell % 0 /100 WBC (0); Platelet Count 234 Thou/mm3 (140-440); RDW Standard Deviation 46.7 fL (36.4-46.3); Red Blood Count 3.82 Miln/mm3 (4.00-5.20); White Blood Count 9.9 Thou/mm3 (3.6-11.0)
[2024-08-17 07:00] LABS: Albumin, Serum 3.9 gm/dL (3.4-4.8); Anion Gap 9 (7-16); BUN/Creatinine Ratio 13 Ratio (12-20); Blood Urea Nitrogen 13 mg/dL (9-23); Calcium 9.1 mg/dL (8.3-10.6); Calcium (Corrected) 9.2 mg/dL (8.5-10.1); Carbon Dioxide > 40.0 mMol/L (20.0-31.0); Chloride 94 mMol/L (98-107); Estimated Creatinine Clearance 56.9 mL/min (>60); Glucose 98 mg/dL (74-106); Osmolality,Calculated 285 (275-295); Potassium 4.4 mMol/L (3.4-5.1); Sodium 143 mMol/L (136-145); eGFR > 60 See Note
[2024-08-17] MEDS: PANTOPRAZOLE 40 MG TABLET PO (09:50)
[2024-08-17] MEDS: cefTRIAXone/D5w 1gm IV premix 50 ML IV (09:51)
[2024-08-17] MEDS: BUMETANIDE INJ 0.25 MG/ML VIAL 4 ML 1 MG IVP (09:51)
[2024-08-17] MEDS: MethylPREDNISolone SOD SUCC 62.5 MG/ML 2ML VIAL IVP (09:51)
[2024-08-17] MEDS: AZITHROMYCIN 250 MG TABLET 500 MG PO (10:26)
--- NOTE | 2024-08-17 11:45 | PC.NURSE ---
Patient is on NPO. Oral meds given per MD with small sips of water, NG clamped for 30 mins after oral meds and return it back to low intermittent suction around 11:00 AM. Patient is transfer to [facility] bed, report given to Tri LARA.
--- NOTE | 2024-08-17 12:50 | PC.NURSE ---
Made Md Barrios she is aware of pts current rhythm varying from afib to aflutter. Per MD continue monitoring and adm one dose of cardizem 10 mg ivp.
--- NOTE | 2024-08-17 13:05 | PC.NURSE ---
Due to pts current hr and bp per md Carcamo stop administration of cardizem and cont with new orders. see mar.
--- NOTE | 2024-08-17 13:55 | PC.NURSE ---
Per Md Carcamo stop low intermittent suction at this time and keep NG in place for reassessment tomorrow and possible NG DC.
--- NOTE | 2024-08-17 14:07 | PC.NURSE ---
Pt converted back to SR at 1407.
[2024-08-17] MEDS: METOPROLOL SUCCINATE XL 25 MG TABCR 50 MG PO (14:15)
[2024-08-17] MEDS: APIXABAN 2.5 MG TABLET 5 MG PO ×2 (14:16→20:23)
--- NOTE | 2024-08-17 14:50 | PC.NURSE ---
Rounded with Dr Carcamo and notified of pts current heart rhythm varying from afib to aflutter at times. Per md Carcamo stop low interm suction. and start new orders of eliquis metropolol. will cont with administration.
--- NOTE | 2024-08-17 15:38 | PD.RESPRO ---
Documentation for date of: 08/17/24 Subjective Subjective Interval history: 69-year-old female with significant past medical history of obesity, hypertension, hypothyroidism CAD, COPD on 2 to 3 L oxygen since 5 years, CHF presented to the hospital with chief complaints of shortness of breath since 3 days. Patient was apparently normal 3 weeks ago, had similar complaints and came to ED on 07/22/2024 and was discharged to home with steroids and antibiotics. Patient felt normal during the treatment with steroids and antibiotics but later again she started developing shortness of breath. At baseline, patient is able to do her routine daily activities and ambulate around the house. But since last 3 days worsening shortness of breath and increased her oxygen supply to 4 L. Also complaining of worsening cough associated with mild sputum. Denies fever, nausea, vomitings, abdominal distention, burning micturition. Noticed bilateral pedal edema and patient endorsed that she is on Bumex 1 Mg but still having swelling both lower extremities since 3 months. ED Course: -Initial vitals were Blood pressure 140/84 mmHg, pulse rate 80 bpm, respiratory rate 20/min, temperature 97.7 ?F, SpO2 97% with 3 L oxygen -Labs significant for WBC 6.2, Hb 12.1, platelets 226, sodium 141, potassium 4.1, chloride 102, bicarb 32.5, BUN 9, creatinine 0.9, glucose 126 -Chest x-ray showed bilateral moderate vascular congestion. Chest CTA is negative for pulmonary embolism. EKG showed normal sinus rhythm -In the ED, patient was given DuoNeb inhalation, Bumex, hydralazine, steroids -Patient was admitted for Acute on chronic hypoxic respiratory failure secondary to COPD exacerbation. 08/16/2024 Patient is seen and examined bedside Patient still complaining of abdominal pain, distention and did not have any bowel movement Did not get GoLytely yesterday due to significant nausea, abdominal distention and pain, restarted it Pending echocardiogram. Dr. Rush was consulted for persistent abdominal discomfort 08/17/2024 Patient is seen and examined bedside. Patient found to have atrial fibrillation developed overnight and patient was given IV metoprolol. Had 3 bowel movements since last night patient and stated that her abdominal discomfort is relieved Labs showed sodium 143, potassium 4.4, bicarb 40 Shifted patient to telemetry Started on metoprolol 50 Mg p.o. daily and Eliquis 5 Mg p.o. twice daily. Discussed about the Eliquis benefits and risks with the patient. Dr. Sharp was consulted and will appreciate his recommendations. Exam Vital Signs Temp Pulse Resp BP Pulse Ox O2 Del Method O2 Flow Rate 97.7 F 91 19 114/81 94 L Nasal Cannula 3 08/17/24 12:00 08/17/24 14:15 08/17/24 12:00 08/17/24 14:15 08/17/24 12:00 08/17/24 12:00 08/17/24 12:00 Narrative Exam General: Awake. still connected to the suction HEENT: Normocephalic, atraumatic, mucous membranes moist. Heart: Irregular rate and rhythm, Holosystolic murmur heard at tricuspid area. Lungs: Basilar crackles are heard Abdomen: Soft, mildly distended, nontender, positive bowel sounds. ?No guarding or rebound tenderness. Neurologic: Alert and oriented x3, no gross neurological deficit, and patient able to move all 4 extremities. Extremities: Bilateral 4+ pitting pedal edema noted in lower extremities Skin: No rash or ecchymoses. Objective Labs 08/18/24 05:35 08/18/24 05:35 Labs: Laboratory Results - last 24 hr 08/17/24 05:37 WBC 9.9 RBC 3.82 L Hgb 12.1 Hct 37.3 MCV 98 MCH 31.7 MCHC 32.4 RDW Std Deviation 46.7 H Plt Count 234 D Neut % (Auto) 74 Lymph % (Auto) 16 [place] % (Auto) 9 Eos % (Auto) 1 Baso % (Auto) 0 Neut # (Auto) 7.3 Lymph # (Auto) 1.6 [place] # (Auto) 0.8 Eos # (Auto) 0.1 Baso # (Auto) 0.0 Immature Gran # (Auto) 0.10 H Absolute Nucleated RBC 0.00 Immature Gran % 1 H Nucleated RBC % 0 Sodium 143 Potassium 4.4 Chloride 94 L Carbon Dioxide > 40.0 H Anion Gap 9 BUN 13 Creatinine 1.0 Estim Creat Clear Calc 56.9 L eGFR > 60 BUN/Creatinine Ratio 13 Glucose 98 Calculated Osmolality 285 Calcium 9.1 Corrected Calcium 9.2 Phosphorus 2.0 L Albumin 3.9 Quality Measures Quality Measures none Advance care planning discussed with:: patient Assessment & Plan Assessment Current Active Medications: Generic Name Dose Route Start Last Admin Trade Name Patricia PRN Reason Stop Dose Admin Acetaminophen 650 mg 08/12/24 15:45 08/16/24 09:28 Acetaminophen 325 Mg Tablet PO 09/10/24 17:47 650 mg Q6H PRN Administration Fever >100.3 or pain 1-3 Albuterol/Ipratropium 3 ml 08/12/24 07:00 08/17/24 10:20 Albuterol/Ipratropium (Duoneb) Rt Ginger 3 Ml Nebu INH 09/11/24 06:59 3 ml Q4HRRT STEVE Administration Albuterol/Ipratropium 3 ml 08/12/24 05:50 Albuterol/Ipratropium (Duoneb) Rt Ginger 3 Ml Nebu INH 09/11/24 05:49 Q2HR PRN SHORTNESS OF BREATH OR WHEEZE Apixaban 5 mg 08/17/24 13:45 08/17/24 14:16 Apixaban 2.5 Mg Tablet PO 09/16/24 13:44 5 mg BID STEVE Administration Azithromycin 500 mg 08/11/24 18:00 08/17/24 10:26 Azithromycin 250 Mg Tablet PO 08/18/24 17:59 500 mg QDAY STEVE Administration Bumetanide 1 mg 08/11/24 18:00 08/17/24 09:51 Bumetanide Inj 0.25 Mg/Ml Vial 4 Ml IVP 09/10/24 17:59 1 mg QDAY STEVE Administration Ceftriaxone Sodium/Dextrose 50 mls @ 100 mls/hr 08/17/24 09:00 08/17/24 09:51 Rocephin/D5w 1gm Iv Premix IV 08/19/24 14:16 100 mls/hr QDAY STEVE Administration Levothyroxine Sodium 50 mcg 08/13/24 06:00 08/17/24 05:01 Levothyroxine Sodium 25 Mcg Tablet PO 09/12/24 05:59 Not Given ACBR STEVE Losartan Potassium 50 mg 08/11/24 21:00 08/16/24 20:51 Losartan Potassium 25 Mg Tablet PO 09/10/24 20:59 50 mg BID STEVE Administration Magnesium Hydroxide 30 ml 08/11/24 17:48 08/14/24 20:07 Milk Of Magnesia Susp 30 Ml Udc PO 09/10/24 17:47 30 ml QDAY PRN Administration CONSTIPATION Protocol Methylprednisolone Sodium Succinate 62.5 mg 08/12/24 14:30 08/17/24 09:51 Methylprednisolone Sod Succ 62.5 Mg/Ml 2ml Vial IVP 08/19/24 14:29 62.5 mg DAILY STEVE Administration Ondansetron HCl 4 mg 08/11/24 17:48 08/17/24 03:05 Ondansetron Inj 2 Mg/Ml Inj 2 Ml IV 09/10/24 17:47 4 mg Q6H PRN Administration NAUSEA OR VOMITING Protocol Pantoprazole Sodium 40 mg 08/12/24 09:00 08/17/24 09:50 Pantoprazole 40 Mg Tablet PO 09/11/24 08:59 40 mg QDAY STEVE Administration Promethazine HCl/Dextromethorphan 5 ml 08/12/24 22:54 08/16/24 05:57 Promethazine/Dm Syrup 5 Ml Dose PO 09/11/24 22:41 5 ml Q4HR PRN Administration COUGH Protocol Tramadol HCl 50 mg 08/12/24 22:05 08/15/24 03:54 Tramadol Hcl 50 Mg Tablet PO 08/17/24 22:04 50 mg Q6HR PRN Administration PAIN SCALE 4-10(Mod-Sev Plan A 69-year-old female with significant past medical history of obesity, hypertension, hypothyroidism CAD, COPD on 2 to 3 L oxygen since 5 years, CHF presented to the hospital with chief complaints of shortness of breath since 3 days and admitted for Acute on chronic hypoxic respiratory failure secondary to Copd exacerbation # Acute on chronic hypoxic respiratory failure, resolved # Secondary to COPD exacerbation and CHF exacerbation -Presented to the hospital with complaints of worsening shortness of breath, wheezing, cough and pedal edema. -Denies fever, nausea, vomitings, palpitations, chest pain, diarrhea. -Denies any complaints with medications and change in her diet -Patient is using 2 L oxygen at baseline unable to do her routine daily activities -Labs significant for WBC 6.2, Hb 12.1, platelets 226, sodium 141, potassium 4.1, chloride 102, bicarb 32.5, BUN 9, creatinine 0.9, glucose 126 -Chest x-ray showed bilateral moderate vascular congestion. Chest CTA is negative for pulmonary embolism. EKG showed normal sinus rhythm -Influenza, COVID was ordered - negative -Echocardiogram was done with EF 55-60% Plan -Started on IV Bumex 1 Mg IV daily -Started on DuoNebs every 8 hourly -Started on IV methylprednisone 62.5 Mg IV daily -Started on azithromycin and ceftriaxone -Started on promethazine and Dextromethorphan # New onset atrial fibrillation -Patient had elevated blood pressures on 08/16/2024 and EKG done at that time showed atrial fibrillation with rapid ventricular rate -Per patient, patient had a similar complaints in the past 5 years ago where she had atrial fibrillation and when she was about to get cardioversion by Dr. Sharp, reverted back to normal sinus rhythm and was not started on any anticoagulation -[id number] score is 3 Plan -Started on metoprolol 50 Mg p.o. daily on Eliquis 5 Mg p.o. twice daily -Discussed about the anticoagulation risk factors with the patient -Dr. Sharp was consulted and will appreciate his recommendations. # Severe constipation -Patient did not have bowel movement since the time of admission -Patient received oral laxatives, rectal suppositories but did not have any bowel movement -X-ray abdomen showed stools with distended colon -CT abdomen/pelvis ordered and showed large amounts of stool throughout the colon -NG tube was placed for decompression and GoLytely was ordered -patient had 3 bowel movements on 08/16/2024 -Will start her on full liquid diet for today and advance the diet according to patient's tolerance. #Hypertension -Patient is using losartan 50 Mg p.o. twice daily at home Plan -Will resume her home medication -will continue to monitor # Hypothyroidism Patient is on 25 mcg p.o. daily Plan -TSH is within normal limits -Resumed her home medication Hospital Maintenance: Dispo: medsurg DVT ppx: lovenox GI ppx: protonox Diet : Full liquid diet IV lines: peripheral Code status: Full code Patient plan of care was discussed with the attending physician, Dr. Tin Carcamo, PGY1 Attending Provider Attestation/Addendum Patient seen and examined with resident physician Dr. Martins. Note reviewed, agree with findings and recommendations. Patient still having wheezing and cough with shortness of breath. Changed to IV steroids, breathing treatments [id number], antibiotics added. Currently on 3 L oxygen. Added promethazine with DM cough syrup. Physical therapy, ambulate. Patient complaining of significant abdominal pain and gaseous distention. KUB showed gas and stool. CT scan did not show any acute pathology except gas and stool. Patient could not tolerate GoLytely. NG tube to intermittent suction. Overnight patient responded very well to enemas. Declines GoLytely. Patient declines colonoscopy. Dr. Rush on the case.
--- NOTE | 2024-08-17 16:19 | PC.SS ---
SS update: patient had rapid response editor school photograph today regarding her blood pressure.
--- NOTE | 2024-08-17 17:10 | PD.IMCONS ---
HPI Data of Consult Requesting Physician: Ethan Castle MD Primary Care Provider: Ethan Castle MD Consult Narrative History of present illness: This is a 69-year-old female with significant past medical history of obesity, hypertension, hypothyroidism CAD, COPD on 2 to 3 L oxygen since 5 years, CHF afib c/o of sob for 3 days developed afib currently on diltiazem and eliquis cc:: cc: Ethan Castle MD Meds Home Medications and Allergies Home Medications ?Medication ?Instructions ?Recorded ?Confirmed ?Type furosemide 20 mg tablet 20 mg PO QDAY 09/04/21 09/24/21 History levothyroxine 50 mcg tablet 50 mcg PO QDAY 09/04/21 08/11/24 History potassium chloride 20 mEq 20 meq PO DAILY 09/04/21 08/11/24 History tablet,extended release tiotropium 2.5 mcg-olodaterol 2.5 2 puff inhalation QDAY 09/24/21 09/24/21 History mcg/actuation mist for inhalation (Stiolto Respimat) bumetanide 2 mg tablet 2 mg PO QDAY 08/11/24 08/11/24 History losartan 50 mg tablet 25 mg PO DAILY 08/11/24 08/11/24 History Allergies Allergy/AdvReac Type Severity Reaction Status Date / Time iodine Allergy NAUSEA, Verified 08/10/24 11:57 VOMITTING, CHILLS, DIARRHEA, FEVER Exam Vital Signs Temp Pulse Resp BP Pulse Ox O2 Del Method O2 Flow Rate 97.7 F 91 20 114/81 97 Nasal Cannula 3 08/17/24 12:00 08/17/24 15:41 08/17/24 15:41 08/17/24 14:15 08/17/24 15:41 08/17/24 12:00 08/17/24 15:41 Routine HEENT Exam Head: Present normocephalic and atraumatic Eye: Present EOMI and PERRL ENT: Present mucous membranes moist Routine Neck Exam Neck: Present supple and trachea midline Routine Respiratory Exam Respiratory: Present chest non-tender, lungs clear, normal breath sounds and no resp distress Routine Cardiovascular Exam Cardiovascular: Present RRR Routine Abdominal Exam Abdominal: Present soft and normoactive bowel sounds Routine Extremities Exam Extremities: Present full ROM Routine Skin Exam Skin: Present intact, dry and warm Routine Neurological Exam Neurological: Present alert, oriented X3 and CN II-XII intact Routine Psychiatric Exam Psychiatric: Present normal affect and normal thought process Results Labs 08/17/24 05:37 08/17/24 05:37 Labs: Short CBC 08/17/24 Range/Units 05:37 WBC 9.9 (3.6-11.0) Thou/mm3 Hgb 12.1 (12.0-16.0) g/dL Hct 37.3 (36.0-46.0) % Plt Count 234 D (140-440) Thou/mm3 BMP 08/17/24 05:37 Sodium 143 Potassium 4.4 Chloride 94 L Carbon Dioxide > 40.0 H BUN 13 Creatinine 1.0 Glucose 98 Calcium 9.1 Liver Function 08/17/24 Range/Units 05:37 Albumin 3.9 (3.4-4.8) gm/dL Assessment and Plan Assessment and plan (1) Bradycardia: Status: Acute (2) Community acquired pneumonia: Status: Acute (3) COPD (chronic obstructive pulmonary disease): Status: Acute (4) Hypertensive urgency: Status: Acute (5) Paroxysmal A-fib: Status: Acute Additional Assessment & Plan Additional Plan: pt was in afib rate controlled currently in SR agree with anticoagulation echo shows normal EF
--- NOTE | 2024-08-17 17:17 | PC.NURSE ---
Updated Dr Allan of pts convertion back to SR via telephone.
--- NOTE | 2024-08-17 17:32 | PC.NURSE ---
Verbal order given from Dr. Carcamo around 9AM to continue NGT suction to low intermittent after PO meds in the morning.
[2024-08-17] MEDS: Milk Of Magnesia Susp 30 ML UDC PO (20:37)
[2024-08-17] MEDS: traMADol HCL 50 MG TABLET PO (20:37)
--- NOTE | 2024-08-17 21:14 | ESPR_ITS ---
Documentation for date of: 08/17/24 Subjective Subjective Interval history: Patient evaluated He had good results with the GoLytely 3-4 bowel movements today abdominal distention is better abdominal pain is better Exam Vital Signs Temp Pulse Resp BP Pulse Ox O2 Del Method O2 Flow Rate 97.1 F 77 18 111/69 93 L Nasal Cannula 3 08/17/24 20:00 08/17/24 20:00 08/17/24 20:00 08/17/24 20:00 08/17/24 20:00 08/17/24 20:00 08/17/24 20:00 Objective Labs 08/18/24 05:35 08/18/24 05:35 Labs: Laboratory Results - last 24 hr 08/17/24 05:37 WBC 9.9 RBC 3.82 L Hgb 12.1 Hct 37.3 MCV 98 MCH 31.7 MCHC 32.4 RDW Std Deviation 46.7 H Plt Count 234 D Neut % (Auto) 74 Lymph % (Auto) 16 [place] % (Auto) 9 Eos % (Auto) 1 Baso % (Auto) 0 Neut # (Auto) 7.3 Lymph # (Auto) 1.6 [place] # (Auto) 0.8 Eos # (Auto) 0.1 Baso # (Auto) 0.0 Immature Gran # (Auto) 0.10 H Absolute Nucleated RBC 0.00 Immature Gran % 1 H Nucleated RBC % 0 Sodium 143 Potassium 4.4 Chloride 94 L Carbon Dioxide > 40.0 H Anion Gap 9 BUN 13 Creatinine 1.0 Estim Creat Clear Calc 56.9 L eGFR > 60 BUN/Creatinine Ratio 13 Glucose 98 Calculated Osmolality 285 Calcium 9.1 Corrected Calcium 9.2 Phosphorus 2.0 L Albumin 3.9 Impressions Impression: Abdominal pain due to obstipation constipation stool impaction Assessment & Plan A&P Narrative pt was in afib rate controlled currently in SR agree with anticoagulation echo shows normal EF Time Spent With Patient Time: Total time spent is greater than 50% in coordination of care (as documented) at patient's floor/unit and/or counseling patient:
[2024-08-17] MEDS: PROMETHAZINE/DM SYRUP 5 ML DOSE PO (22:13)
[2024-08-18] VITALS (14 sets, daily range): BP systolic 130–164; BP diastolic 67–95; PULSE 68–81; RESP 14–20; TEMP 36.2–36.7; O2SAT 87–97
[2024-08-18] MEDS: ALBUTEROL/IPRATROPIUM (Duoneb) RT SOL 3 ML NEBU INH ×6 (02:57→22:48)
[2024-08-18] MEDS: LEVOTHYROXINE SODIUM 25 MCG TABLET 50 MCG PO (05:22)
[2024-08-18 05:57] LABS: Basophils % (Auto) 0 % (0-2.5); Eosinophils # (Auto) 0.1 Thou/mm3 (0.0-0.5); Eosinophils % (Auto) 1 % (0-10); Hematocrit 37.4 % (36.0-46.0); Hemoglobin 11.9 g/dL (12.0-16.0); Immature Granulocytes % (Auto) 1 % (0-0); Immature Granulocytes Auto 0.06 Thou/mm3 (0.00-0.00); Lymphocytes # (Auto) 1.5 Thou/mm3 (1.0-4.8); Lymphocytes % (Auto) 17 % (10-50); Mean Corpuscular HGB Conc 31.8 g/dl (31.0-37.0); Mean Corpuscular Hemoglobin 31.1 pg (25.0-35.0); Mean Corpuscular Volume 98 fL (80-100); Monocytes # (Auto) 0.6 Thou/mm3 (0.0-0.8); Monocytes % (Auto) 7 % (0-12); Neutrophils # (Auto) 6.7 Thou/mm3 (1.8-7.7); Neutrophils % (Auto) 74 % (37-80); Nucleated Red Blood Cell % 0 /100 WBC (0); Platelet Count 280 Thou/mm3 (140-440); RDW Standard Deviation 47.3 fL (36.4-46.3); Red Blood Count 3.83 Miln/mm3 (4.00-5.20)
[2024-08-18 06:54] LABS: Albumin, Serum 4.1 gm/dL (3.4-4.8); Anion Gap 10 (7-16); BUN/Creatinine Ratio 14 Ratio (12-20); Blood Urea Nitrogen 13 mg/dL (9-23); Calcium 9.3 mg/dL (8.3-10.6); Calcium (Corrected) 9.3 mg/dL (8.5-10.1); Carbon Dioxide > 40.0 mMol/L (20.0-31.0); Chloride 92 mMol/L (98-107); Creatinine (Component) 0.9 mg/dL (0.6-1.3); Estimated Creatinine Clearance 63.2 mL/min (>60); Glucose 94 mg/dL (74-106); Osmolality,Calculated 283 (275-295); Phosphorous 3.2 mg/dL (2.4-5.1); Potassium 3.8 mMol/L (3.4-5.1); Sodium 142 mMol/L (136-145); eGFR > 60 See Note
[2024-08-18] MEDS: AZITHROMYCIN 250 MG TABLET 500 MG PO (09:12)
[2024-08-18] MEDS: PANTOPRAZOLE 40 MG TABLET PO (09:12)
[2024-08-18] MEDS: APIXABAN 2.5 MG TABLET 5 MG PO ×2 (09:12→21:47)
[2024-08-18] MEDS: BUMETANIDE INJ 0.25 MG/ML VIAL 4 ML 1 MG IVP (09:12)
[2024-08-18] MEDS: cefTRIAXone/D5w 1gm IV premix 50 ML IV (09:13)
[2024-08-18] MEDS: MethylPREDNISolone SOD SUCC 62.5 MG/ML 2ML VIAL IVP (09:13)
[2024-08-18] MEDS: DILTIAZEM CD 120 MG CAPCR PO (09:29)
--- NOTE | 2024-08-18 15:23 | ESPR_ITS ---
Documentation for date of: 08/18/24 Subjective Subjective Interval history: 69-year-old female with significant past medical history of obesity, hypertension, hypothyroidism CAD, COPD on 2 to 3 L oxygen since 5 years, CHF presented to the hospital with chief complaints of shortness of breath since 3 days. Patient was apparently normal 3 weeks ago, had similar complaints and came to ED on 07/22/2024 and was discharged to home with steroids and antibiotics. Patient felt normal during the treatment with steroids and antibiotics but later again she started developing shortness of breath. At baseline, patient is able to do her routine daily activities and ambulate around the house. But since last 3 days worsening shortness of breath and increased her oxygen supply to 4 L. Also complaining of worsening cough associated with mild sputum. Denies fever, nausea, vomitings, abdominal distention, burning micturition. Noticed bilateral pedal edema and patient endorsed that she is on Bumex 1 Mg but still having swelling both lower extremities since 3 months. ED Course: -Initial vitals were Blood pressure 140/84 mmHg, pulse rate 80 bpm, respiratory rate 20/min, temperature 97.7 ?F, SpO2 97% with 3 L oxygen -Labs significant for WBC 6.2, Hb 12.1, platelets 226, sodium 141, potassium 4.1, chloride 102, bicarb 32.5, BUN 9, creatinine 0.9, glucose 126 -Chest x-ray showed bilateral moderate vascular congestion. Chest CTA is negative for pulmonary embolism. EKG showed normal sinus rhythm -In the ED, patient was given DuoNeb inhalation, Bumex, hydralazine, steroids -Patient was admitted for Acute on chronic hypoxic respiratory failure secondary to COPD exacerbation. 08/16/2024 Patient is seen and examined bedside Patient still complaining of abdominal pain, distention and did not have any bowel movement Did not get GoLytely yesterday due to significant nausea, abdominal distention and pain, restarted it Pending echocardiogram. Dr. Rush was consulted for persistent abdominal discomfort 08/17/2024 Patient is seen and examined bedside. Patient found to have atrial fibrillation developed overnight and patient was given IV metoprolol. Had 3 bowel movements since last night patient and stated that her abdominal discomfort is relieved Labs showed sodium 143, potassium 4.4, bicarb 40 Shifted patient to telemetry Started on metoprolol 50 Mg p.o. daily and Eliquis 5 Mg p.o. twice daily. Discussed about the Eliquis benefits and risks with the patient. Dr. Sharp was consulted and will appreciate his recommendations. 08/18/2024 Patient is seen and examined bedside Still c/o abdominal discomfort but having bowel movements. Spoke to Dr. Sharp-continue with metoprolol, Eliquis NG tube is removed and allowed full liquid diet will switch to diltiazem (COPD/shortness of breath) and eliquis Continue with mineral oil enema, mag citrate Exam Vital Signs Temp Pulse Resp BP Pulse Ox O2 Del Method O2 Flow Rate 97.2 F 78 14 130/67 92 L Nasal Cannula 3 08/18/24 12:00 08/18/24 12:00 08/18/24 12:08/18/24 12:00 08/18/24 12:08/18/24 12:08/18/24 12:00 Narrative Exam General: Awake. still connected to the suction HEENT: Normocephalic, atraumatic, mucous membranes moist. Heart: Irregular rate and rhythm, Holosystolic murmur heard at tricuspid area. Lungs: Basilar crackles are heard Abdomen: Soft, mildly distended, nontender, positive bowel sounds. ?No guarding or rebound tenderness. Neurologic: Alert and oriented x3, no gross neurological deficit, and patient able to move all 4 extremities. Extremities: Bilateral 4+ pitting pedal edema noted in lower extremities Skin: No rash or ecchymoses. Objective Labs 08/18/24 05:35 08/18/24 05:35 Labs: Laboratory Results - last 24 hr 08/18/24 05:35 WBC 9.0 RBC 3.83 L Hgb 11.9 L Hct 37.4 MCV 98 MCH 31.1 MCHC 31.8 RDW Std Deviation 47.3 H Plt Count 280 D Neut % (Auto) 74 Lymph % (Auto) 17 [place] % (Auto) 7 Eos % (Auto) 1 Baso % (Auto) 0 Neut # (Auto) 6.7 Lymph # (Auto) 1.5 [place] # (Auto) 0.6 Eos # (Auto) 0.1 Baso # (Auto) 0.0 Immature Gran # (Auto) 0.06 H Absolute Nucleated RBC 0.00 Immature Gran % 1 H Nucleated RBC % 0 Sodium 142 Potassium 3.8 D Chloride 92 L Carbon Dioxide > 40.0 H Anion Gap 10 BUN 13 Creatinine 0.9 Estim Creat Clear Calc 63.2 eGFR > 60 BUN/Creatinine Ratio 14 Glucose 94 Calculated Osmolality 283 Calcium 9.3 Corrected Calcium 9.3 Phosphorus 3.2 Albumin 4.1 Quality Measures Quality Measures none Advance care planning discussed with:: patient Assessment & Plan Assessment Current Active Medications: Generic Name Dose Route Start Last Admin Trade Name Freq PRN Reason Stop Dose Admin Acetaminophen 650 mg 08/12/24 15:45 08/16/24 09:28 Acetaminophen 325 Mg Tablet PO 09/10/24 17:47 650 mg Q6H PRN Administration Fever >100.3 or pain 1-3 Albuterol/Ipratropium 3 ml 08/12/24 07:00 08/18/24 11:32 Albuterol/Ipratropium (Duoneb) Rt Ginger 3 Ml Nebu INH 09/11/24 06:59 3 ml Q4HRRT STEVE Administration Albuterol/Ipratropium 3 ml 08/12/24 05:50 Albuterol/Ipratropium (Duoneb) Rt Ginger 3 Ml Nebu INH 09/11/24 05:49 Q2HR PRN SHORTNESS OF BREATH OR WHEEZE Apixaban 5 mg 08/17/24 13:45 08/18/24 09:12 Apixaban 2.5 Mg Tablet PO 09/16/24 13:44 5 mg BID STEVE Administration Azithromycin 500 mg 08/11/24 18:00 08/18/24 09:12 Azithromycin 250 Mg Tablet PO 08/18/24 17:59 500 mg QDAY STEVE Administration Bumetanide 1 mg 08/11/24 18:00 08/18/24 09:12 Bumetanide Inj 0.25 Mg/Ml Vial 4 Ml IVP 09/10/24 17:59 1 mg QDAY STEVE Administration Diltiazem HCl 120 mg 08/18/24 09:00 08/18/24 09:29 Diltiazem Cd 120 Mg Capcr PO 09/17/24 08:59 120 mg QDAY STEVE Administration Ceftriaxone Sodium/Dextrose 50 mls @ 100 mls/hr 08/17/24 09:00 08/18/24 09:13 Rocephin/D5w 1gm Iv Premix IV 08/19/24 14:16 100 mls/hr QDAY STEVE Administration Levothyroxine Sodium 50 mcg 08/13/24 06:00 08/18/24 05:22 Levothyroxine Sodium 25 Mcg Tablet PO 09/12/24 05:59 50 mcg ACBR STEVE Administration Losartan Potassium 50 mg 08/11/24 21:00 08/16/24 20:51 Losartan Potassium 25 Mg Tablet PO 09/10/24 20:59 50 mg BID STEVE Administration Magnesium Hydroxide 30 ml 08/11/24 17:48 08/17/24 20:37 Milk Of Magnesia Susp 30 Ml Udc PO 09/10/24 17:47 30 ml QDAY PRN Administration CONSTIPATION Protocol Methylprednisolone Sodium Succinate 62.5 mg 08/12/24 14:30 08/18/24 09:13 Methylprednisolone Sod Succ 62.5 Mg/Ml 2ml Vial IVP 08/19/24 14:29 62.5 mg DAILY STEVE Administration Ondansetron HCl 4 mg 08/11/24 17:48 08/17/24 03:05 Ondansetron Inj 2 Mg/Ml Inj 2 Ml IV 09/10/24 17:47 4 mg Q6H PRN Administration NAUSEA OR VOMITING Protocol Pantoprazole Sodium 40 mg 08/12/24 09:00 08/18/24 09:12 Pantoprazole 40 Mg Tablet PO 09/11/24 08:59 40 mg QDAY STEVE Administration Promethazine HCl/Dextromethorphan 5 ml 08/12/24 22:54 08/17/24 22:13 Promethazine/Dm Syrup 5 Ml Dose PO 09/11/24 22:41 5 ml Q4HR PRN Administration COUGH Protocol Tramadol HCl 50 mg 08/18/24 00:58 Tramadol Hcl 50 Mg Tablet PO 08/23/24 00:57 Q6HR PRN PAIN SCALE 4-10(Mod-Sev Plan A 69-year-old female with significant past medical history of obesity, hypertension, hypothyroidism CAD, COPD on 2 to 3 L oxygen since 5 years, CHF presented to the hospital with chief complaints of shortness of breath since 3 days and admitted for Acute on chronic hypoxic respiratory failure secondary to Copd exacerbation # Acute on chronic hypoxic respiratory failure, resolved # Secondary to COPD exacerbation and CHF exacerbation -Presented to the hospital with complaints of worsening shortness of breath, wheezing, cough and pedal edema. -Denies fever, nausea, vomitings, palpitations, chest pain, diarrhea. -Denies any complaints with medications and change in her diet -Patient is using 2 L oxygen at baseline unable to do her routine daily activities -Labs significant for WBC 6.2, Hb 12.1, platelets 226, sodium 141, potassium 4.1, chloride 102, bicarb 32.5, BUN 9, creatinine 0.9, glucose 126 -Chest x-ray showed bilateral moderate vascular congestion. Chest CTA is negative for pulmonary embolism. EKG showed normal sinus rhythm -Influenza, COVID was ordered - negative -Echocardiogram was done with EF 55-60% Plan -Started on IV Bumex 1 Mg IV daily -Started on DuoNebs every 8 hourly -Started on IV methylprednisone 62.5 Mg IV daily -Started on azithromycin and ceftriaxone -Started on promethazine and Dextromethorphan # New onset atrial fibrillation -Patient had elevated blood pressures on 08/16/2024 and EKG done at that time showed atrial fibrillation with rapid ventricular rate -Per patient, patient had a similar complaints in the past 5 years ago where she had atrial fibrillation and when she was about to get cardioversion by Dr. Sharp, reverted back to normal sinus rhythm and was not started on any anticoagulation -[id number] score is 3 Plan -Started on Diltiazem 120mg and Eliquis 5 Mg p.o. twice daily -Discussed about the anticoagulation risk factors with the patient -Dr. Sharp was consulted and will appreciate his recommendations. # Severe constipation -Patient did not have bowel movement since the time of admission -Patient received oral laxatives, rectal suppositories but did not have any bowel movement -X-ray abdomen showed stools with distended colon -CT abdomen/pelvis ordered and showed large amounts of stool throughout the colon -NG tube was placed for decompression and GoLytely was ordered -patient had 3 bowel movements on 08/16/2024 -Will start her on full liquid diet for today and advance the diet according to patient's tolerance. #Hypertension -Patient is using losartan 50 Mg p.o. twice daily at home Plan -Will resume her home medication -will continue to monitor # Hypothyroidism Patient is on 25 mcg p.o. daily Plan -TSH is within normal limits -Resumed her home medication Hospital Maintenance: Dispo: medsurg DVT ppx: lovenox GI ppx: protonox Diet : Full liquid diet IV lines: peripheral Code status: Full code Patient plan of care was discussed with the attending physician, Dr. Tin Carcamo, PGY1 Attending Provider Attestation/Addendum Patient seen and examined with resident physician Dr. Martins. Note reviewed, agree with findings and recommendations. Patient still having wheezing and cough with shortness of breath. Changed to IV steroids, breathing treatments [id number], antibiotics added. Currently on 3 L oxygen. Added promethazine with DM cough syrup. Physical therapy, ambulate. Patient complaining of significant abdominal pain and gaseous distention. KUB showed gas and stool. CT scan did not show any acute pathology except gas and stool. Dr. Rush was consulted. Patient declines colonoscopy. Continue with citrate, enemas. Ambulate. Hopefully can be discharged in the next 1 to 2 days.
[2024-08-18] MEDS: MAGNESIUM CITRATE 300 ML BTL PO (16:00)
[2024-08-18] MEDS: Milk Of Magnesia Susp 30 ML UDC PO (21:48)
--- NOTE | 2024-08-18 22:36 | PD.IMPROG ---
Documentation for date of: 08/18/24 Subjective Subjective Interval history: patient evaluated Some results which are mixed results with GoLytely patient had 3 bowel movements diet has been advanced to full liquid diet Exam Vital Signs Temp Pulse Resp BP Pulse Ox O2 Del Method O2 Flow Rate 97.5 F 74 19 143/92 H 87 L Nasal Cannula 3 08/18/24 20:00 08/18/24 20:00 08/18/24 20:00 08/18/24 20:00 08/18/24 20:00 08/18/24 20:00 08/18/24 20:00 Objective Labs 08/18/24 05:35 08/18/24 05:35 Labs: Laboratory Results - last 24 hr 08/18/24 05:35 WBC 9.0 RBC 3.83 L Hgb 11.9 L Hct 37.4 MCV 98 MCH 31.1 MCHC 31.8 RDW Std Deviation 47.3 H Plt Count 280 D Neut % (Auto) 74 Lymph % (Auto) 17 [place] % (Auto) 7 Eos % (Auto) 1 Baso % (Auto) 0 Neut # (Auto) 6.7 Lymph # (Auto) 1.5 [place] # (Auto) 0.6 Eos # (Auto) 0.1 Baso # (Auto) 0.0 Immature Gran # (Auto) 0.06 H Absolute Nucleated RBC 0.00 Immature Gran % 1 H Nucleated RBC % 0 Sodium 142 Potassium 3.8 D Chloride 92 L Carbon Dioxide > 40.0 H Anion Gap 10 BUN 13 Creatinine 0.9 Estim Creat Clear Calc 63.2 eGFR > 60 BUN/Creatinine Ratio 14 Glucose 94 Calculated Osmolality 283 Calcium 9.3 Corrected Calcium 9.3 Phosphorus 3.2 Albumin 4.1 Impressions Impression: # Stool impaction status post GoLytely NGT out Start liquid diet Assessment & Plan A&P Narrative pt was in afib rate controlled currently in SR agree with anticoagulation echo shows normal EF Time Spent With Patient Time: Total time spent is greater than 50% in coordination of care (as documented) at patient's floor/unit and/or counseling patient:
[2024-08-19] VITALS (15 sets, daily range): BP systolic 114–166; BP diastolic 71–84; PULSE 63–94; RESP 16–20; TEMP 36.2–37.2; O2SAT 90–99; BMI 41.8
[2024-08-19] MEDS: ALBUTEROL/IPRATROPIUM (Duoneb) RT SOL 3 ML NEBU INH ×4 (02:36→23:23)
[2024-08-19] MEDS: LEVOTHYROXINE SODIUM 25 MCG TABLET 50 MCG PO (06:13)
[2024-08-19] MEDS: BUMETANIDE INJ 0.25 MG/ML VIAL 4 ML 1 MG IVP (08:41)
[2024-08-19] MEDS: MethylPREDNISolone SOD SUCC 62.5 MG/ML 2ML VIAL IVP (08:41)
[2024-08-19] MEDS: cefTRIAXone/D5w 1gm IV premix 50 ML IV (08:43)
[2024-08-19] MEDS: APIXABAN 2.5 MG TABLET 5 MG PO ×2 (08:43→20:02)
[2024-08-19] MEDS: DILTIAZEM CD 120 MG CAPCR PO (08:43)
[2024-08-19] MEDS: PANTOPRAZOLE 40 MG TABLET PO (08:44)
[2024-08-19] MEDS: ACETAMINOPHEN 325 MG TABLET 650 MG PO ×2 (15:57→23:07)
--- NOTE | 2024-08-19 17:00 | PD.RESPRO ---
Documentation for date of: 08/19/24 Subjective Subjective Interval history: 69-year-old female with significant past medical history of obesity, hypertension, hypothyroidism CAD, COPD on 2 to 3 L oxygen since 5 years, CHF presented to the hospital with chief complaints of shortness of breath since 3 days. Patient was apparently normal 3 weeks ago, had similar complaints and came to ED on 07/22/2024 and was discharged to home with steroids and antibiotics. Patient felt normal during the treatment with steroids and antibiotics but later again she started developing shortness of breath. At baseline, patient is able to do her routine daily activities and ambulate around the house. But since last 3 days worsening shortness of breath and increased her oxygen supply to 4 L. Also complaining of worsening cough associated with mild sputum. Denies fever, nausea, vomitings, abdominal distention, burning micturition. Noticed bilateral pedal edema and patient endorsed that she is on Bumex 1 Mg but still having swelling both lower extremities since 3 months. ED Course: -Initial vitals were Blood pressure 140/84 mmHg, pulse rate 80 bpm, respiratory rate 20/min, temperature 97.7 ?F, SpO2 97% with 3 L oxygen -Labs significant for WBC 6.2, Hb 12.1, platelets 226, sodium 141, potassium 4.1, chloride 102, bicarb 32.5, BUN 9, creatinine 0.9, glucose 126 -Chest x-ray showed bilateral moderate vascular congestion. Chest CTA is negative for pulmonary embolism. EKG showed normal sinus rhythm -In the ED, patient was given DuoNeb inhalation, Bumex, hydralazine, steroids -Patient was admitted for Acute on chronic hypoxic respiratory failure secondary to COPD exacerbation. 08/16/2024 Patient is seen and examined bedside Patient still complaining of abdominal pain, distention and did not have any bowel movement Did not get GoLytely yesterday due to significant nausea, abdominal distention and pain, restarted it Pending echocardiogram. Dr. Rush was consulted for persistent abdominal discomfort 08/17/2024 Patient is seen and examined bedside. Patient found to have atrial fibrillation developed overnight and patient was given IV metoprolol. Had 3 bowel movements since last night patient and stated that her abdominal discomfort is relieved Labs showed sodium 143, potassium 4.4, bicarb 40 Shifted patient to telemetry Started on metoprolol 50 Mg p.o. daily and Eliquis 5 Mg p.o. twice daily. Discussed about the Eliquis benefits and risks with the patient. Dr. Sharp was consulted and will appreciate his recommendations. 08/18/2024 Patient is seen and examined bedside Still c/o abdominal discomfort but having bowel movements. Spoke to Dr. Sharp-continue with metoprolol, Eliquis NG tube is removed and allowed full liquid diet will switch to diltiazem (COPD/shortness of breath) and eliquis Continue with mineral oil enema, mag citrate 08/19/2024 Patient is seen and examined bedside No acute overnight events. Vitals are stable Patient is seen sinus rhythm and denies any other complaints As the patient's medical condition is improving and able to tolerate liquid diet, will start her on low-sodium diet Planning to discharge tomorrow Exam Vital Signs Temp Pulse Resp BP Pulse Ox O2 Del Method O2 Flow Rate 98.9 F 79 16 166/83 H 94 L Room Air 3 08/19/24 16:00 08/19/24 16:08/19/24 16:08/19/24 16:08/19/24 16:08/19/24 16:08/19/24 10:54 Narrative Exam General: Awake. HEENT: Normocephalic, atraumatic, mucous membranes moist. Heart: Irregular rate and rhythm, Systolic murmur heard at aortic area. Lungs: Clear to auscultation Abdomen: Soft, mildly distended, nontender, positive bowel sounds. ?No guarding or rebound tenderness. Neurologic: Alert and oriented x3, no gross neurological deficit, and patient able to move all 4 extremities. Extremities: Bilateral 4+ pitting pedal edema noted in lower extremities Skin: No rash or ecchymoses. Objective Labs 08/20/24 09:40 08/20/24 09:40 Quality Measures Quality Measures none Advance care planning discussed with:: patient Assessment & Plan Assessment Current Active Medications: Generic Name Dose Route Start Last Admin Trade Name Freq PRN Reason Stop Dose Admin Acetaminophen 650 mg 08/12/24 15:45 08/19/24 15:57 Acetaminophen 325 Mg Tablet PO 09/10/24 17:47 650 mg Q6H PRN Administration Fever >100.3 or pain 1-3 Albuterol/Ipratropium 3 ml 08/12/24 07:00 08/19/24 16:35 Albuterol/Ipratropium (Duoneb) Rt Ginger 3 Ml Nebu INH 09/11/24 06:59 Not Given Q4HRRT STEVE Albuterol/Ipratropium 3 ml 08/12/24 05:50 Albuterol/Ipratropium (Duoneb) Rt Ginger 3 Ml Nebu INH 09/11/24 05:49 Q2HR PRN SHORTNESS OF BREATH OR WHEEZE Apixaban 5 mg 08/17/24 13:45 08/19/24 08:43 Apixaban 2.5 Mg Tablet PO 09/16/24 13:44 5 mg BID STEVE Administration Bumetanide 1 mg 08/11/24 18:00 08/19/24 08:41 Bumetanide Inj 0.25 Mg/Ml Vial 4 Ml IVP 09/10/24 17:59 1 mg QDAY STEVE Administration Diltiazem HCl 120 mg 08/18/24 09:00 08/19/24 08:43 Diltiazem Cd 120 Mg Capcr PO 09/17/24 08:59 120 mg QDAY STEVE Administration Levothyroxine Sodium 50 mcg 08/13/24 06:00 08/19/24 06:13 Levothyroxine Sodium 25 Mcg Tablet PO 09/12/24 05:59 50 mcg ACBR STEVE Administration Losartan Potassium 50 mg 08/11/24 21:00 08/16/24 20:51 Losartan Potassium 25 Mg Tablet PO 09/10/24 20:59 50 mg BID STEVE Administration Magnesium Hydroxide 30 ml 08/11/24 17:48 08/18/24 21:48 Milk Of Magnesia Susp 30 Ml Udc PO 09/10/24 17:47 30 ml QDAY PRN Administration CONSTIPATION Protocol Ondansetron HCl 4 mg 08/11/24 17:48 08/17/24 03:05 Ondansetron Inj 2 Mg/Ml Inj 2 Ml IV 09/10/24 17:47 4 mg Q6H PRN Administration NAUSEA OR VOMITING Protocol Pantoprazole Sodium 40 mg 08/12/24 09:00 08/19/24 08:44 Pantoprazole 40 Mg Tablet PO 09/11/24 08:59 40 mg QDAY STEVE Administration Promethazine HCl/Dextromethorphan 5 ml 08/12/24 22:54 08/17/24 22:13 Promethazine/Dm Syrup 5 Ml Dose PO 09/11/24 22:41 5 ml Q4HR PRN Administration COUGH Protocol Tramadol HCl 50 mg 08/18/24 00:58 Tramadol Hcl 50 Mg Tablet PO 08/23/24 00:57 Q6HR PRN PAIN SCALE 4-10(Mod-Sev Plan A 69-year-old female with significant past medical history of obesity, hypertension, hypothyroidism CAD, COPD on 2 to 3 L oxygen since 5 years, CHF presented to the hospital with chief complaints of shortness of breath since 3 days and admitted for Acute on chronic hypoxic respiratory failure secondary to Copd exacerbation # Acute on chronic hypoxic respiratory failure, resolved # Secondary to COPD exacerbation and CHF exacerbation -Presented to the hospital with complaints of worsening shortness of breath, wheezing, cough and pedal edema. -Denies fever, nausea, vomitings, palpitations, chest pain, diarrhea. -Denies any complaints with medications and change in her diet -Patient is using 2 L oxygen at baseline unable to do her routine daily activities -Labs significant for WBC 6.2, Hb 12.1, platelets 226, sodium 141, potassium 4.1, chloride 102, bicarb 32.5, BUN 9, creatinine 0.9, glucose 126 -Chest x-ray showed bilateral moderate vascular congestion. Chest CTA is negative for pulmonary embolism. EKG showed normal sinus rhythm -Influenza, COVID was ordered - negative -Echocardiogram was done with EF 55-60% Plan -Started on IV Bumex 1 Mg IV daily -Started on DuoNebs every 8 hourly -Started on azithromycin and ceftriaxone, completed the course -Started on promethazine and Dextromethorphan as needed # New onset atrial fibrillation -Patient had elevated blood pressures on 08/16/2024 and EKG done at that time showed atrial fibrillation with rapid ventricular rate -Per patient, patient had a similar complaints in the past 5 years ago where she had atrial fibrillation and when she was about to get cardioversion by Dr. Sharp, reverted back to normal sinus rhythm and was not started on any anticoagulation -[id number] score is 3 Plan -Started on Diltiazem 120mg and Eliquis 5 Mg p.o. twice daily -Discussed about the anticoagulation risk factors with the patient -Dr. Sharp was consulted and will appreciate his recommendations. # Severe constipation, resolved -Patient did not have bowel movement since the time of admission -Patient received oral laxatives, rectal suppositories but did not have any bowel movement -X-ray abdomen showed stools with distended colon -CT abdomen/pelvis ordered and showed large amounts of stool throughout the colon -NG tube was placed for decompression and GoLytely was ordered -patient had 3 bowel movements on 08/16/2024 -Will advance the diet to low sodium diet #Hypertension -Patient is using losartan 50 Mg p.o. twice daily at home Plan -Will resume her home medication -will continue to monitor # Hypothyroidism Patient is on 25 mcg p.o. daily Plan -TSH is within normal limits -Resumed her home medication Hospital Maintenance: Dispo: medsurg DVT ppx: lovenox GI ppx: protonox Diet : low sodium IV lines: peripheral Code status: Full code Patient plan of care was discussed with the attending physician, Dr. Tin Carcamo, PGY1 Attending Provider Attestation/Addendum Patient seen and examined with resident physician Dr. Martins. Note reviewed, agree with findings and recommendations. Patient still having wheezing and cough with shortness of breath. Changed to IV steroids, breathing treatments [id number], antibiotics added. Currently on 3 L oxygen. Added promethazine with DM cough syrup. Physical therapy, ambulate. Patient complaining of significant abdominal pain and gaseous distention. KUB showed gas and stool. CT scan did not show any acute pathology except gas and stool. Dr. Rush was consulted. Patient declines colonoscopy. Today she seems to be much better.08/19/2024 Continue with citrate, enemas. Ambulate. Hopefully can be discharged in the next 1 to 2 days.
--- NOTE | 2024-08-19 18:39 | PD.IMPROG ---
Documentation for date of: 08/19/24 Subjective Subjective Interval history: Patient did not have great results with the GoLytely although as she had few bowel movements She is currently on milk of magnesia I will add MiraLAX once a day and Senokot twice a day to facilitate the bowel movements She is not willing to have a colonoscopy at the moment which is fine we can do that as an outpatient Exam Vital Signs Temp Pulse Resp BP Pulse Ox O2 Del Method O2 Flow Rate 98.9 F 79 16 166/83 H 94 L Room Air 3 08/19/24 16:00 08/19/24 16:00 08/19/24 16:00 08/19/24 16:00 08/19/24 16:00 08/19/24 16:00 08/19/24 10:54 Objective Labs 08/18/24 05:35 08/18/24 05:35 Impressions Impression: Obstipation constipation Stool impaction As under HPI Assessment & Plan A&P Narrative pt was in afib rate controlled currently in SR agree with anticoagulation echo shows normal EF Time Spent With Patient Time: Total time spent is greater than 50% in coordination of care (as documented) at patient's floor/unit and/or counseling patient:
[2024-08-19] MEDS: SENNA TABLET 1 TAB PO (20:02)
[2024-08-19] MEDS: PROMETHAZINE/DM SYRUP 5 ML DOSE PO (23:10)
[2024-08-20] VITALS (13 sets, daily range): BP systolic 126–151; BP diastolic 68–85; PULSE 74–85; RESP 16–19; TEMP 2.7–36.9; O2SAT 2–98
[2024-08-20] MEDS: ALBUTEROL/IPRATROPIUM (Duoneb) RT SOL 3 ML NEBU INH ×4 (03:07→14:19)
[2024-08-20] MEDS: LEVOTHYROXINE SODIUM 25 MCG TABLET 50 MCG PO (05:06)
[2024-08-20] MEDS: APIXABAN 2.5 MG TABLET 5 MG PO (09:28)
[2024-08-20] MEDS: SENNA TABLET 1 TAB PO (09:29)
[2024-08-20] MEDS: PANTOPRAZOLE 40 MG TABLET PO (09:29)
[2024-08-20] MEDS: DILTIAZEM CD 120 MG CAPCR PO (09:29)
[2024-08-20] MEDS: POLYETHYLENE GLYCOL 17 GM PACKET PO (09:30)
[2024-08-20] MEDS: BUMETANIDE INJ 0.25 MG/ML VIAL 4 ML 1 MG IVP ×2 (09:31→11:34)
[2024-08-20 09:56] LABS: Basophils % (Auto) 0 % (0-2.5); Eosinophils % (Auto) 0 % (0-10); Hematocrit 38.9 % (36.0-46.0); Hemoglobin 12.8 g/dL (12.0-16.0); Immature Granulocytes % (Auto) 2 % (0-0); Immature Granulocytes Auto 0.16 Thou/mm3 (0.00-0.00); Lymphocytes # (Auto) 1.5 Thou/mm3 (1.0-4.8); Lymphocytes % (Auto) 15 % (10-50); Mean Corpuscular HGB Conc 32.9 g/dl (31.0-37.0); Mean Corpuscular Hemoglobin 31.1 pg (25.0-35.0); Mean Corpuscular Volume 94 fL (80-100); Monocytes # (Auto) 0.7 Thou/mm3 (0.0-0.8); Monocytes % (Auto) 6 % (0-12); Neutrophils # (Auto) 7.7 Thou/mm3 (1.8-7.7); Neutrophils % (Auto) 77 % (37-80); Nucleated Red Blood Cell % 0 /100 WBC (0); Platelet Count 300 Thou/mm3 (140-440); RDW Standard Deviation 45.7 fL (36.4-46.3); Red Blood Count 4.12 Miln/mm3 (4.00-5.20); White Blood Count 10.1 Thou/mm3 (3.6-11.0)
[2024-08-20 10:26] LABS: Alanine Aminotransferase 46 U/L (10-49); Albumin, Serum 4.2 gm/dL (3.4-4.8); Albumin/Globulin Ratio 1.8 (1.2-2.2); Alkaline Phosphatase 68 U/L (46-116); Anion Gap 10 (7-16); Aspartate Amino Transferase 26 U/L (0-34); BUN/Creatinine Ratio 11 Ratio (12-20); Bilirubin,Total 0.6 mg/dL (0.3-1.2); Blood Urea Nitrogen 11 mg/dL (9-23); Calcium 9.4 mg/dL (8.3-10.6); Calcium (Corrected) 9.4 mg/dL (8.5-10.1); Carbon Dioxide 35.2 mMol/L (20.0-31.0); Chloride 94 mMol/L (98-107); Estimated Creatinine Clearance 56.9 mL/min (>60); Globulin 2.3 gm/dL (2.3-3.5); Glucose 183 mg/dL (74-106); Magnesium 2.6 mg/dL (1.6-2.6); Osmolality,Calculated 281 (275-295); Potassium 3.2 mMol/L (3.4-5.1); Sodium 139 mMol/L (136-145); Total Protein 6.5 gm/dL (5.7-8.2); eGFR > 60 See Note
--- NOTE | 2024-08-20 12:10 | PC.NURSE ---
PT ALERT AND ORIENTED [facility] 15. PT COMMUNICATED WITH DR. VASQUEZ AT BEDSIDE. DC INSTRUCTIONS PROVIDED. PT STATES SHE FEELS GOOD TO GO HOME. PT STATES SHE CANNOT GET A RIDE TILL 330 HER SON HAS AN APPOINTMENT. UBER OFFERED TO PATIENT. PATIENT REFUSED STATES SHE WOULD FEEL SAFER TO DC HOME WITH SON
--- NOTE | 2024-08-20 13:35 | PD.RESDS ---
Planned Discharge Date 08/20/24 DS: Providers Provider Date of admission: 08/11/24 17:48 Primary care physician: Ethan Castle MD Admitting Provider: Ethan Castle MD Attending Provider on Admission: Ethan Castle MD Consults: 08/12/24 16:19 Referral Physical Therapy Routine Comment: Physician Instructions: 08/16/24 06:56 Consult to Gastroenterology Routine Comment: Abdominal distention Consulting Provider: Caty Rush 08/17/24 08:50 Consult to Cardiology Stat Comment: For new onset Afib Consulting Provider: Dale Sharp Attending Provider on DC: Eliezer Carcamo MD Discharging Provider: Eliezer Carcamo MD DS: Diagnosis Problem List Completed Was Problem List Reviewed/Reconciled?: Yes Hospital Course Hospital Course Hospital course: A 69-year-old female with significant past medical history of obesity, hypertension, hypothyroidism CAD, COPD on 2 to 3 L oxygen since 5 years, CHF presented to the hospital with chief complaints of shortness of breath since 3 days and was admitted for Acute on chronic hypoxic respiratory failure secondary to COPD exacerbation and new onset A-fib during the hospital stay. Chest x-ray showed bilateral moderate vascular congestion. Chest CTA is negative for pulmonary embolism. EKG showed normal sinus rhythm. During the hospital admission, patient is treated with diuretics, antibiotics, steroids. Later patient developed severe constipation for which patient was given GoLytely, multiple doses of enema, laxatives. Around that time patient developed atrial fibrillation with normal ventricular rate for which patient was started on Eliquis and diltiazem. Risks and benefits of Eliquis were explained to the patient. Later the constipation was relieved. Patient stated that she had previous history of paroxysmal A-fib but she was not on any other medications for it. Dr. Sharp who is her seasonal clerk was consulted during the hospital stay and appreciated his recommendations. Patient is discharged to home with the following medications and recommendations -Follow-up with Dr. castle within 1 week of discharge. -Follow up with Dr. Munoz within 1 week of discharge. -Start diltiazem 120 Mg p.o. daily hand Eliquis 5 Mg p.o. twice daily -Continue rest of your home medication -Recommended salt and fluid restriction. -Return to ED if symptoms persist or return # Acute on chronic hypoxic respiratory failure, resolved # Secondary to COPD exacerbation and CHF exacerbation # New onset atrial fibrillation # Severe constipation, resolved #Hypertension # Hypothyroidism Patient plan of care was discussed with the attending physician, Dr. Tin Carcamo, PGY1 Status at Discharge Cognitive/behavioral status at discharge: Stable Functional status at discharge: uses cane/walker Overall status at discharge: patient is progressing back to baseline Time Spent with Patient Time attestation: Total time spent providing and/or coordinating discharge services: Time spent: Greater than 30 minutes Exam Vital Signs Temp Pulse Resp BP Pulse Ox O2 Del Method O2 Flow Rate 96.9 F 80 17 137/69 H 96 Room Air 3 08/20/24 12:00 08/20/24 12:00 08/20/24 12:00 08/20/24 12:00 08/20/24 12:00 08/20/24 12:00 08/20/24 10:39 Narrative Exam General: Awake. HEENT: Normocephalic, atraumatic, mucous membranes moist. Heart: regular rate and rhythm, Systolic murmur heard at aortic area. Lungs: Clear to auscultation Abdomen: Soft, mildly distended, nontender, positive bowel sounds. ?No guarding or rebound tenderness. Neurologic: Alert and oriented x3, no gross neurological deficit, and patient able to move all 4 extremities. Extremities: Bilateral 4+ pitting pedal edema noted in lower extremities Skin: No rash or ecchymoses. Discharge Plan Plan Patient Disposition: Home w/HOME HEALTH Patient condition on transfer: Stable Care Plan Goals: -Follow-up with Dr. castle within 1 week of discharge. -Follow up with Dr. Munoz within 1 week of discharge. -Start diltiazem 120 Mg p.o. daily hand Eliquis 5 Mg p.o. twice daily -Continue rest of your home medication -Recommended salt and fluid restriction. -Return to ED if symptoms persist or return Prescriptions/Referrals Prescriptions/Med Rec: New docusate sodium [Colace] 100 mg capsule 100 mg PO QDAY PRN (Reason: constipation) Qty: 30 0RF diltiazem HCl 120 mg Capsule,Extended Release 24hr 120 mg PO QDAY Qty: 30 0RF Eliquis 2.5 mg Tablet 5 mg PO BID Qty: 60 0RF Continued levothyroxine 50 mcg Tablet 50 mcg PO QDAY furosemide 20 mg Tablet 20 mg PO QDAY potassium chloride 20 mEq Tablet Extended Release 20 meq PO DAILY Stiolto Respimat 2.5-2.5 mcg/actuation Mist 2 puff INHALATION QDAY pantoprazole 40 mg Tablet,Delayed Release (Dr/Ec) 40 mg PO ACBR Qty: 30 0RF Qvar RediHaler 80 mcg/actuation HFA aerosol breath activated 2 inh inhalation BID Qty: 10.6 0RF hydralazine 25 mg Tablet 50 mg PO TID Qty: 90 0RF hydrocodone-acetaminophen 5-325 mg tablet 1 tab PO BID MDD 10mg PRN (Reason: pain) Qty: 10 0RF ondansetron 4 mg tablet,disintegrating 4 mg PO Q8H PRN (Reason: nausea and vomiting) Qty: 10 0RF prednisone 50 mg tablet 50 mg PO QDAY Qty: 7 0RF bumetanide 2 mg tablet 2 mg PO QDAY losartan 50 mg Tablet 25 mg PO DAILY Discontinued azithromycin 250 mg Tablet 500 mg PO QDAY Qty: 7 0RF prednisone 20 mg Tablet 40 mg PO QDAY Qty: 20 0RF Taper: Prednisone Taper 20 mg DAILY for 2 Days and 0 Hour 10 mg DAILY for 2 Days and 0 Hour 5 mg DAILY for 7 Days and 0 Hour docusate sodium [DOK] 100 mg Capsule 100 mg PO BID PRN (Reason: Constipation) Qty: 30 0RF doxycycline hyclate 100 mg capsule 100 mg PO BID Qty: 20 0RF prednisone 50 mg tablet 50 mg PO QDAY Qty: 7 0RF Referrals: Ethan Castle MD [Primary Care Provider] - Patient/Caregiver Discharge Instructions Discharge Activity: activity as tolerated Education Materials: Asthma and COPD, Taking a Diuretic, Breathing Controlled Dc, ED Leg Swelling in Both Legs Print Language: Mauritian Activity Restrictions/Additional Instructions: f/u with dr. castle in 1-2 weeks f/u with Dr. Munoz in 1-2 weeks Stand Alone Forms: Miranda Award Info., Patient Portal Info Letter Discharge Order Discharge Orders: Discharge (Routine); Ordered 08/20/24 Ordered By: Ethan Castle Quality Discharge Quality Measures VTE prophylaxis MD Attestestation MD Attestation Patient seen and examined with resident physician Dr. Martins. Note reviewed, agree with findings and recommendations. She is going to be discharged home and follow-up with me in 1 to 2 weeks. Recommended to follow-up with cardiology in 1 to 2 weeks. Patient with atrial fibrillation paroxysmal-gave her diltiazem, Eliquis.
--- NOTE | 2024-08-24 10:09 | PC.CC ---
pt was diacharged on 08/20. I reached out to Dr. Castle to place HH orders in .
--- NOTE | 2024-08-25 08:42 | PC.CC ---
Addendum entered by Maribeth Melara RN 08/25/24 09:47: [facility] accepted the pt. Booked [facility]. Start of care date is 08/26/24. Addendum entered by Maribeth Melara RN 08/25/24 09:40: No documentation from [facility] on pt. preference of HH agency. HH referral sent on [facility]. Awaiting responses. Pending Start of care date. Original Note: Informed Dr. Castle again to place HH orders in.
== END 2024-08-20 15:45 | disposition home health service (06) | DRG 291 ==
LOC: SERX 08-11 16:19 → SERHOLD 08-11 22:40 → S3SX 08-11 22:41
PROVIDERS: Nurse Practitioner Family; Admitting Provider Internal Medicine; Emergency Provider Emergency Medicine; PCP Internal Medicine; Visit Provider Internal Medicine
DX: I11.0 Hypertensive heart disease with heart failure (principal); I50.31 Acute diastolic (congestive) heart failure; J18.9 Pneumonia, unspecified organism; J96.21 Acute and chronic respiratory failure with hypoxia; J44.0 Chronic obstructive pulmonary disease with (acute) lower respiratory infection; J44.1 Chronic obstructive pulmonary disease with (acute) exacerbation; Z68.41 Body mass index [BMI] 40.0-44.9, adult; I16.0 Hypertensive urgency; I25.10 Atherosclerotic heart disease of native coronary artery without angina pectoris; E03.9 Hypothyroidism, unspecified; E66.9 Obesity, unspecified; I48.0 Paroxysmal atrial fibrillation; Z79.01 Long term (current) use of anticoagulants; K56.41 Fecal impaction; Z79.899 Other long term (current) drug therapy; Z87.891 Personal history of nicotine dependence; Z99.81 Dependence on supplemental oxygen
CPT/HCPCS: 36415; 71046; 71275; 74018; 74176; 80048; 80053; 80069; 80307; 81001; 83615; 83735; 83880; 84443; 84484; 85025; 85610; 85730; 87400; 87811; 93005; 93225; 93306; 94640; 96365; 96375; 96376; 97162; 99285; A4649; A9270; J0360; J0696; J1200; J1650; J1885; J2405; J2919; J3475; J3490; J7050; J7512; Q9967

== ENCOUNTER 2024-11-24 14:24 | Emergency (ER) | payer MEDICARE, MEDICAID, SELFPAY ==
[2024-11-24 14:37] VITALS: BP 137/74; PULSE 76; RESP 16; TEMP 36.8; BMI 41.5
--- NOTE | 2024-11-24 14:56 | XR_ITS ---
Examination: Knee, right , 3 views Technique: Knee AP, lateral, oblique 3 views Date and time of exam: November 24, 2024 1527 hours INDICATIONS: Patient fell 10 days ago with injury to the knee, knee pain. FINDINGS: Prominent osteopenia. No acute fracture. No dislocation IMPRESSION: No acute fracture
--- NOTE | 2024-11-24 15:02 | PD.EDRME ---
Rapid Medical Screening Exam RME Arrival date/time: 11/24/24 14:24 Chief Complaint: Extremity Injury, Lower Time Seen by Provider: 11/24/24 14:41 Vital signs: Vital Signs Temperature 98.3 F 11/24/24 14:37 Pulse Rate 76 11/24/24 14:37 Respiratory Rate 16 11/24/24 14:37 Blood Pressure 137/74 H 11/24/24 14:37 Vital signs reviewed by provider: Yes RME Narrative: 69-year-old female with CHF and COPD presents for evaluation of left lower leg pain x 10 days. Patient notes worsening pain and swelling. She reports trip and fall on oxygen tube while carrying her dog.
--- NOTE | 2024-11-24 15:16 | XR_ITS ---
Examination: Duplex scan of the lower extremity, unilateral left Date and time of exam: November 24, 2024, 1516 hours INDICATIONS: Patient fell 5 days ago followed by leg pain and swelling Technique: Duplex scan of the extremity veins using B-mode/grayscale imaging and Doppler spectral analysis and color flow Attention is directed to internal echogenicity, compression and augmentation involving these veins, color flow assessment, spectral analysis Findings: No findings diagnostic for acute deep vein thrombus Limited compression distal left superficial femoral vein likely secondary to edema IMPRESSION: No findings diagnostic for acute DVT
[2024-11-24] MEDS: HYDROcodone/APAP 5/325 TABLET 1 TAB PO (15:41)
[2024-11-24 17:21] LABS: Creatine Kinase 81 U/L (34-171)
--- NOTE | 2024-11-24 18:27 | EDNOTE_ITS ---
<Statement entered by Sylvia Rivera MD - 11/25/24 19:04> As co-signing physician, I was present and available for consult prn. I concur with the plan and care as documented by the midlevel provider. Lower Extremity Injury RME/HPI General Chief Complaint: Extremity Injury, Lower Stated Complaint: Fall 10 days ago left leg pain, swollen and red Time Seen by Provider: 11/24/24 14:41 Arrival date/time: 11/24/24 14:24 RME / HPI RME / HPI Narrative: 69-year-old female with CHF and COPD presents for evaluation of left lower leg pain x 10 days. Patient notes worsening pain and swelling. She reports trip and fall on oxygen tube while carrying her dog. Since then patient has been complaining of pain, described as dull ache, severity moderate. Denies any fever denies any other complaints. No medications taken prior to arrival. Related Data Home Medications ?Medication ?Instructions ?Recorded ?Confirmed furosemide 20 mg tablet 20 mg PO QDAY 09/04/2109/24 levothyroxine 50 mcg tablet 50 mcg PO QDAY 09/04/21 potassium chloride 20 mEq 20 meq PO DAILY 09/04/21 tablet,extended release tiotropium 2.5 mcg-olodaterol 2.5 2 puff inhalation QD AY 09/24/21 09/24/21 mcg/actuation mist for inhalation (Stiolto Respimat) bumetanide 2 mg tablet 2 mg PO QDAY 08/11/24 losartan 50 mg tablet 25 mg PO DAILY 08/11/2407/30 Previous Rx's ?Medication ?Instructions ?Recorded beclomethasone dipropionate 80 2 inh inhalation BID #1 0.6 grams 09/27/21 mcg/actuation HFA breath activated aerosol (Qvar RediHaler) pantoprazole 40 mg tablet,delayed 40 mg PO ACBR #30 ta bs 09/27/21 release hydralazine 25 mg tablet 50 mg (2 x 25 mg) PO TID #90 tabs 10/01/21 hydrocodone 5 mg-acetaminophen 325 1 tab PO BID PRN pa in #10 tabs 08/20/22 mg tablet ondansetron 4 mg disintegrating 4 mg PO Q8H PRN nausea and 08/20/22 tablet vomiting #10 tabs prednisone 50 mg tablet 50 mg PO QDAY #7 tabs apixaban 2.5 mg tablet (Eliquis) 5 mg (2 x 2.5 mg) PO BID #60 tabs 08/20/24 diltiazem HCl 120 mg 120 mg PO QDAY #30 caps 07/31 07/26 capsule,extended release 24 hr docusate sodium 100 mg capsule 100 mg PO QDAY PRN cons tipation 08/20/24 (Colace) #30 caps acetaminophen 300 mg-codeine 30 mg 1 tab PO Q8H PRN pa in #20 tabs 11/24/24 tablet doxycycline monohydrate 100 mg 100 mg PO BID #14 caps 11/24/24 capsule Allergies Allergy/AdvReac Type Severity Reaction Status Date / Time iodine Allergy NAUSEA, Verified 11/24/24 14:29 VOMITTING, CHILLS, DIARRHEA, FEVER Review of Systems Review of Systems Narrative Review of Systems: Review of system reviewed and within normal limits except mentioned in HPI ED Exam Narrative Physical exam: VITAL SIGNS: Reviewed. GENERAL APPEARANCE: Alert and interactive, follows commands, no acute distress, HEAD AND FACE: Non-traumatic. ENT: PERRL, pink conjunctivitis, eyelid no trauma, Mucous membrane moist. NECK: Supple, nontender, no nuchal rigidity. RECTAL: Deferred. GENITAL: Deferred. NEUROLOGICAL: Gross motor function intact sensory function intact, Appropriate for age. MUSCULOSKELETAL: low back nontender, full range of motion. EXTREMITIES: Left lower leg with bruising, slightly swollen, and redness no skin breakdown noted, full range of motion. SKIN: Color pink, dry, no rash, no lacerations, no abrasions, no contusions. LYMPHATICS: Deferred. Course Quality Measures none Orders Category Date Time Status US venous duplex LE LT Stat Exams 11/24/24 15:16 Completed XR knee LT 3V Stat Exams 11/24/24 14:56 Completed CK [Creatine Kinase] Stat Lab 11/24/24 16:55 Completed Doxycycline [Vibramycin] Med 11/24/24 18:26 Discontinued 100 mg PO X1 ONE HYDROcodone*/APAP 5/325 [[place] 5/325] Med 11/24/24 15:04 Discontinued 1 tab PO X1 ONE HYDROcodone/APAP 10/325 [[place] 10/325] Med 11/24/24 18:26 Discontinued 1 tab PO X1 ONE Vital Signs Vital signs: Vital Signs Temperature 98.3 F 11/24/24 14:37 Pulse Rate 76 11/24/24 14:37 Respiratory Rate 16 11/24/24 14:37 Blood Pressure 137/74 H 11/24/24 14:37 Extremity Injury, Lower MDM Narrative MDM Narrative:: 69-year-old female with CHF and COPD presents for evaluation of left lower leg pain x 10 days. Patient notes worsening pain and swelling. She reports trip and fall on oxygen tube while carrying her dog. Since then patient has been complaining of pain, described as dull ache, severity moderate. Denies any fever denies any other complaints. No medications taken prior to arrival. Ultrasound of the lower leg is negative for DVT, x-ray of the knee also came back unremarkable. Results discussed with the patient. Patient was given doxycycline and [place] in the emergency room for mild redness on the anterior proximal leg. Patient data External records reviewed:: None Clinical information provided by:: patient Social determinants that could affect healthcare access:: none Patient has the following chronic illnesses:: CHF COPD How is presenting disease/condition affected by chronic disease/condition?: exacerbated by Evaluation data The following diagnostics were reviewed and interpreted by me:: lab results and radiology exam(s) Lab and/or radiology exams considered but not ordered:: None Interpretation Summary: See results [facility] Medications / Prescriptions Medications or Prescriptions considered but not ordered:: None Medication administrations:: Medication Administration History Discontinued Medications Hydrocodone Bitart/Acetaminophen (Hydrocodone/Apap 5/325 Tablet) 1 tab PO X1 ONE Stop: 11/24/24 15:05 Last Admin: 11/24/24 15:41 Dose: 1 tab Documented By: JIM Hydrocodone Bitart/Acetaminophen (Hydrocodone/Apap 10/325 Tab) 1 tab PO X1 ONE Stop: 11/24/24 18:27 Last Admin: 11/24/24 18:35 Dose: 1 tab Documented By: JIM Doxycycline Hyclate (Doxycycline 100 Mg Tablet) 100 mg PO X1 ONE Stop: 11/24/24 18:27 Last Admin: 11/24/24 18:36 Dose: 100 mg Documented By: JIM Doxy [place] Consultations Consultation(s) initiated? (list below): No Diagnosis Extremity Injury, Lower Differential Diagnosis: other (Knee contusion, lower leg contusion hematoma, lower leg cellulitis) Most likely diagnosis given after review of the tests above:: Lower leg contusion hematoma Admission Indicated Admission indicated?: not indicated Admission Request Was there a request for admission?: No Disposition Plan Disposition Plan: Discharge Discharge Attestation Discharge Attestation: The patient was given an opportunity to ask questions and understood the discharge instructions. Discharge instructions specifically effects, indications for sooner follow up or return to the emergency department, and the expected course of current diagnosis. Patient condition: Stable Discharge Plan Plan Patient Disposition: HOME (Self Care) Discharge Disposition comment: Stable Prescriptions/Referrals Prescriptions/Med Rec: New doxycycline monohydrate 100 mg capsule 100 mg PO BID Qty: 14 0RF acetaminophen-codeine 300-30 mg tablet 1 tab PO Q8H PRN (Reason: pain) Qty: 20 0RF No Action levothyroxine 50 mcg Tablet 50 mcg PO QDAY furosemide 20 mg Tablet 20 mg PO QDAY potassium chloride 20 mEq Tablet Extended Release 20 meq PO DAILY Stiolto Respimat 2.5-2.5 mcg/actuation Mist 2 puff INHALATION QDAY pantoprazole 40 mg Tablet,Delayed Release (Dr/Ec) 40 mg PO ACBR Qty: 30 0RF Qvar RediHaler 80 mcg/actuation HFA aerosol breath activated 2 inh inhalation BID Qty: 10.6 0RF hydralazine 25 mg Tablet 50 mg PO TID Qty: 90 0RF hydrocodone-acetaminophen 5-325 mg tablet 1 tab PO BID MDD 10mg PRN (Reason: pain) Qty: 10 0RF ondansetron 4 mg tablet,disintegrating 4 mg PO Q8H PRN (Reason: nausea and vomiting) Qty: 10 0RF prednisone 50 mg tablet 50 mg PO QDAY Qty: 7 0RF bumetanide 2 mg tablet 2 mg PO QDAY losartan 50 mg Tablet 25 mg PO DAILY docusate sodium [Colace] 100 mg capsule 100 mg PO QDAY PRN (Reason: constipation) Qty: 30 0RF diltiazem HCl 120 mg Capsule,Extended Release 24hr 120 mg PO QDAY Qty: 30 0RF Eliquis 2.5 mg Tablet 5 mg PO BID Qty: 60 0RF Referrals: Ethan Castle MD [Primary Care Provider] - In 1 week Problem List Clinical Impression: Contusion of leg, Leg pain Patient/Caregiver Discharge Instructions Discharge Activity: activity as tolerated Education Materials: Bruises (Contusions) Additional Instructions: Thank you for the opportunity for serving you today. You are stable for discharged . You are advised to: Follow-up with your PCP in 1 to 2 days Return to ED for worsening of symptoms Increase oral fluids Take medication as prescribed Elevate legs as needed Print Language: Kazakh Stand Alone Forms: Miranda Award Info., Patient Portal Info Letter PA/KIP Supervising Physician PA/KIP Supervising Physician: MD Nicole
[2024-11-24] MEDS: HYDROcodone/APAP 10/325 TAB PO (18:35)
[2024-11-24] MEDS: DOXYCYCLINE 100 MG TABLET PO (18:36)
[2024-11-24 19:02] VITALS: BP 132/70; PULSE 77; RESP 18; TEMP 36.7; O2SAT 98
== END 2024-11-24 19:03 | disposition home or self-care (01) ==
PROVIDERS: Physician Assistant; Emergency Provider Emergency Medicine; PCP Internal Medicine
DX: S80.12XA Contusion of left lower leg, initial encounter (principal); W01.0XXA Fall on same level from slipping, tripping and stumbling without subsequent striking against object, initial encounter; I50.9 Heart failure, unspecified; J44.9 Chronic obstructive pulmonary disease, unspecified
CPT/HCPCS: 36415; 73562; 82550; 93971; 99284; A9270

== ENCOUNTER → 2025-01-05 | Outpatient (CLI) | payer MEDICARE, MEDICAID, SELFPAY ==
--- NOTE | 2025-01-05 16:27 | XR_ITS ---
Examination:Left hip AP, lateral, AP pelvis 3 views Technique: Hip AP lateral, AP pelvis, 3 views Exam date and time:January 05, 2025 1705 hours INDICATIONS: Patient fell one month ago with injury to the left hip, left hip pain. FINDINGS: No left hip fracture or dislocation Moderate narrowing hip joint Right hip bones of the pelvis and direct IMPRESSION: No acute hip or pelvic fracture.
[2025-01-05 17:25] LABS: Collection Type, Urine Clean Catch
[2025-01-05 17:52] LABS: Basophils # (Auto) 0.0 Thou/mm3 (0.0-0.2); Basophils % (Auto) 1 % (0-2.5); Eosinophils # (Auto) 0.0 Thou/mm3 (0.0-0.5); Eosinophils % (Auto) 0 % (0-10); Hematocrit 35.6 % (36.0-46.0); Hemoglobin 11.6 g/dL (12.0-16.0); Immature Granulocytes Auto 0.02 Thou/mm3 (0.00-0.00); Lymphocytes # (Auto) 1.8 Thou/mm3 (1.0-4.8); Lymphocytes % (Auto) 30 % (10-50); Mean Corpuscular HGB Conc 32.6 g/dl (31.0-37.0); Mean Corpuscular Hemoglobin 30.9 pg (25.0-35.0); Mean Corpuscular Volume 95 fL (80-100); Monocytes # (Auto) 0.4 Thou/mm3 (0.0-0.8); Monocytes % (Auto) 6 % (0-12); Neutrophils # (Auto) 3.8 Thou/mm3 (1.8-7.7); Neutrophils % (Auto) 63 % (37-80); Nucleated Red Blood Cell # 0.00 Thou/mm3 (0.00-0.00); Nucleated Red Blood Cell % 0 /100 WBC (0); Platelet Count 216 Thou/mm3 (140-440); RDW Standard Deviation 52.1 fL (36.4-46.3); Red Blood Count 3.75 Miln/mm3 (4.00-5.20); White Blood Count 6.0 Thou/mm3 (3.6-11.0)
[2025-01-05 17:54] LABS: Glucose Estimated Average 117 mg/dL (80-131); Hemoglobin A1C 5.7 % Hgb (4.8-6.0)
[2025-01-05 18:04] LABS: Vitamin B12 373 pg/mL (211-911); Vitamin D 25 Hydroxy Total 37.8 ng/mL (7.3-40.2)
[2025-01-05 18:11] LABS: Alanine Aminotransferase 7 U/L (10-49); Albumin, Serum 4.3 gm/dL (3.4-4.8); Albumin/Globulin Ratio 1.6 (1.2-2.2); Alkaline Phosphatase 85 U/L (46-116); Anion Gap 8 (7-16); Aspartate Amino Transferase 16 U/L (0-34); BUN/Creatinine Ratio 13 Ratio (12-20); Bilirubin,Total 0.7 mg/dL (0.3-1.2); Blood Urea Nitrogen 17 mg/dL (9-23); Calcium 9.6 mg/dL (8.3-10.6); Calcium (Corrected) 9.6 mg/dL (8.5-10.1); Carbon Dioxide 27.9 mMol/L (20.0-31.0); Cardiac Risk Estimate 3.0 RATIO (3.7-5.6); Chloride 102 mMol/L (98-107); Cholesterol 238 mg/dL (132-200); Creatinine (Component) 1.3 mg/dL (0.6-1.3); Globulin 2.7 gm/dL (2.3-3.5); Glucose 109 mg/dL (74-106); HDL Cholesterol 80 mg/dL (40-60); LDL Cholesterol,Calculated 129 mg/dL (0-130); Osmolality,Calculated 278 (275-295); Potassium 4.8 mMol/L (3.4-5.1); Sodium 138 mMol/L (136-145); Thyroid Stimulating Hormone 2.81 uIU/mL (0.55-4.78); Total Protein 7.0 gm/dL (5.7-8.2); Triglycerides 145 mg/dL (30-150); Uric Acid 4.9 mg/dL (3.1-7.8); eGFR 44 See Note
[2025-01-05 18:18] LABS: Bacteria,Urine Rare; Bilirubin,Urine Negative (Negative); Blood,Urine Negative (Negative); Clarity,Urine Turbid (Clear/Hazy); Color,Urine Yellow (Lt Yel-Yel); Glucose, Urine Negative (Negative); Hyaline Casts,Urine 1 /hpf (0-1); Ketones,Urine Negative (Negative); Leukocyte Esterase,Urine Negative (Negative); Nitrite,Urine Negative (Negative); PH,Urine 5.0 (5.0-7.0); Protein,Urine Negative (Neg - Trace); RBC,Urine 1 /hpf (0-3); Specific Gravity,Urine 1.022 (1.001-1.035); Squamous Epithelial Cell,Urine 7 /hpf (0-5); Urobilinogen,Urine Negative mg/dL (0.0-1.0); WBC,Urine 2 /hpf (0-5)
== END | disposition home or self-care (01) ==
LOC: CDIM 16:23 → COPL 17:18
PROVIDERS: Referring Provider Internal Medicine; Visit Provider Radiology Diagnostic Radiology
DX: M25.552 Pain in left hip (principal); E78.5 Hyperlipidemia, unspecified; E03.9 Hypothyroidism, unspecified; E79.0 Hyperuricemia without signs of inflammatory arthritis and tophaceous disease; I11.0 Hypertensive heart disease with heart failure; I50.32 Chronic diastolic (congestive) heart failure; D51.9 Vitamin B12 deficiency anemia, unspecified; E55.9 Vitamin D deficiency, unspecified
CPT/HCPCS: 36415; 73502; 80053; 80061; 81001; 82306; 82607; 83036; 84443; 84550; 85025

== ENCOUNTER → 2025-01-10 | Outpatient (CLI) | payer MEDICARE, MEDICAID, SELFPAY ==
--- NOTE | 2025-01-10 13:24 | XR_ITS ---
Examination: Duplex scan of the lower extremity, unilateral left Date and time of exam: January 10, 2025 1347 hours INDICATIONS: Patient fell 2 months ago with injury to the leg, persistent leg pain and swelling Technique: Duplex scan of the extremity veins using B-mode/grayscale imaging and Doppler spectral analysis and color flow Attention is directed to internal echogenicity, compression and augmentation involving these veins, color flow assessment, spectral analysis Findings: Major deep venous structures in the extremity demonstrate normal course and caliber. There is no evidence of deep vein thrombosis. Normal color flow and spectral analysis Impression: Negative for DVT..
--- NOTE | 2025-01-10 13:42 | XR_ITS ---
Examination: Lumbar spine, 5 views Technique: Lumbar spine AP, lateral, coned lateral lower lumbar spine, bilateral obliques 5 views Exam date and time: January 10, 2025, 1421 hours INDICATIONS: Lower back pain beginning 6 months ago FINDINGS: Severe osteopenia. Moderate diffuse facet arthropathy. Grade 1 anterolisthesis L4 on L5. No lumbar fracture. Moderate to advanced degenerative disc disease L4-L5, L5-S1 IMPRESSION: Moderate to advanced degenerative disc disease L4-L5, L5-S1
== END | disposition home or self-care (01) ==
LOC: CDIM 13:10
PROVIDERS: PCP Internal Medicine; Referring Provider Internal Medicine; Visit Provider Internal Medicine
DX: S89.92XA Unspecified injury of left lower leg, initial encounter (principal); W19.XXXA Unspecified fall, initial encounter; M51.360 Other intervertebral disc degeneration, lumbar region with discogenic back pain only; M51.370 Other intervertebral disc degeneration, lumbosacral region with discogenic back pain only
CPT/HCPCS: 72110; 93971

== ENCOUNTER → 2025-05-11 | Outpatient (CLI) | payer MEDICARE, MEDICAID, SELFPAY ==
--- NOTE | 2025-05-11 13:35 | XR_ITS ---
EXAMINATION: Lumbar spine 3 views TECHNIQUE: AP lateral coned lateral lower lumbar spine 3 views Date and time: May 11, 2025, 1432 hours, comparison January 10, 2025 INDICATIONS: History lumbar fusion FINDINGS: Severe osteopenia Lumbar dextroscoliosis 10 degrees Transpedicular lumbar fusion L4-L5 with anatomic alignment Diffuse lumbar disc narrowing, advanced L5-S1 IMPRESSION: Transpedicular lumbar fusion L4-L5 with anatomic alignment Advanced degenerative disc disease L5-S1
== END | disposition home or self-care (01) ==
LOC: CDIM 12:53
PROVIDERS: PCP Internal Medicine; Referring Provider Orthopaedic Surgery; Visit Provider Orthopaedic Surgery
DX: M51.370 Other intervertebral disc degeneration, lumbosacral region with discogenic back pain only (principal); M43.26 Fusion of spine, lumbar region
CPT/HCPCS: 72100